=== PATIENT | male | born 1990 | race Caucasian/White ===

== ENCOUNTER 2017-04-12 13:50 | Outpatient (CLI) | payer MEDICARE, MEDICAID | END 2017-04-12 13:51 | disposition critical access hospital (66) | LOC: EMS 13:50 | PROVIDERS: ATTEND Surgery | DX: M79.644 Pain in right finger(s) (principal); M79.89 Other specified soft tissue disorders | CPT/HCPCS: A0425; A0429 ==

== ENCOUNTER 2017-04-12 14:05 | Emergency (ER) | payer MEDICARE, MEDICAID ==
[2017-04-12] MEDS ORDERED: BUPIVACAINE 0.5% PF 30 ML VIAL ONE (15:29)
[2017-04-12] MEDS ORDERED: PHENAZOPYRIDINE 100 MG TABLET PO STA (15:44)
[2017-04-12] MEDS ORDERED: CIPROFLOXACIN 250 MG TABLET PO STA (15:44)
--- NOTE | 2017-04-12 16:02 | ED Physician Documentation ---
History of Present Illness - Stated complaint Stated Complaint: SYNCOPE/R FINGER INFECTION - Chief complaint Chief Complaint: Neuro - History obtained from History obtained from: Patient - Additonal information Additional information: Patient is a 26-year-old male who is right-hand dominant. He presents with a complaint of right middle finger distal pain and swelling. Today the pain was severe and he saw blood and Pus emanating from the distal tip and subsequently fainted. He says this is not unusual for him and he sometimes will faint when he gets scared or nervous. He denies any chest pain or shortness of breath. There is no nausea, vomiting, constipation, diarrhea or lower urinary symptoms. He is otherwise a healthy man. Review of systems: For pertinent positive and negative questions for the review of systems please see history of present illness. Otherwise all other systems have been reviewed and are negative. Dragon disclaimer: Parts of this medical record were created using voice recognition technology. Because of the inherent limitations of this system occasional same sounding word substitutions do occur and persist despite proofreading. Please read the document for context. PD PAST MEDICAL HISTORY - Past Medical History Past Medical History: Yes Other Past Medical History: ruptured spleen - Past Surgical History Past Surgical History: No - Present Medications Home Medications: Ambulatory Orders Medication Instructions Recorded Confirmed Cephalexin [Keflex] 500 mg PO QID #20 capsule 04/12/17 Tramadol HCl 50 mg PO Q8HR PRN #10 tablet 04/12/17 - Allergies Allergies/Adverse Reactions: Allergies Allergy/AdvReac Type Severity Reaction Status Date / Time Penicillins Allergy Edema Verified 04/12/17 14:12 - Social History Does the pt smoke?: Yes Smoking Status: Current every day smoker Does the pt drink ETOH?: Yes Does the pt have substance abuse?: No - Immunizations Immunizations: TDAP >10years/unknown PD ED PE NORMAL - General General: Alert and oriented X 3, No acute distress - HEENT HEENT: Atraumatic, PERRL - Cardiac Cardiac: RRR, No murmur, No gallop, No rub - Respiratory Respiratory: No respiratory distress, Clear bilaterally - Abdomen Abdomen: Normal bowel sounds, Soft, Non tender, Non distended - Extremities Extremities: Other (On examination he has a obvious paronychia right distal tip middle finger) - Neuro Neuro: Alert and oriented X 3, No motor deficit, No sensory deficit - Psych Psych: Normal mood, Normal affect Results - Vitals Vitals: Vital Signs - 24 hr 04/12/17 14:09 Temperature 37.1 C Heart Rate 77 Respiratory 18 Rate Blood Pressure 128/77 O2 Saturation 100 Oxygen O2 Source Room air PD MEDICAL DECISION MAKING - ED course ED course: Patient is a healthy 26-year-old man with a paronychia on his dominant right distal Phalanx of the middle finger. He noticed blood and pus coming from it today became apprehensive and had a syncopal episode. On EKG has normal sinus rhythm with normal CO QRS and QT interval there is prominence of the ST segments consistent with early repolarization. There is no evidence of cardiac syncope clinically or electrically. A digital nerve block was performed using Marcaine in the usual fashion.Total of 8 cc was infused. Once there is good anesthesia the finger was cleansed with Betadine and using a stab incision of the distal phalanx the paronychia was incised and drained. There is interval improvement in the look of the finger. This wound was dressed and the patient will be placed on a very short course of Keflex that she probably does not need but is status post splenectomy salt air on the side of caution. Disposition: To home Clinical impression: 1. Vasovagal syncope 2. Paronychia right middle finger distal phalanx status post incision and drainage Departure - Departure Disposition: 01 Home, Self Care Clinical Impression: Vasovagal near-syncope Paronychia of finger Qualifiers: Laterality: right Qualified Code(s): L03.011 - Cellulitis of right finger Clinical Impression: (Ruled Out): Paronychia of fifth toe, right Condition: Good Instructions: Understanding Vasovagal Syncope, ED Fingernail Infec Follow-Up: your,physican [Other] Prescriptions: Tramadol HCl 50 mg PO Q8HR PRN #10 tablet PRN Reason: Pain Cephalexin [Keflex] 500 mg PO QID #20 capsule
[2017-04-12 16:25] VITALS: BP 134/74
== END 2017-04-12 16:38 | disposition home or self-care (01) ==
LOC: ED 14:05
DX: R55 Syncope and collapse (principal); L03.011 Cellulitis of right finger; F17.200 Nicotine dependence, unspecified, uncomplicated
CPT/HCPCS: 10160; 93005; 99283; 99284

== ENCOUNTER 2017-05-16 22:44 | Outpatient (CLI) | payer MEDICARE, MEDICAID | END 2017-05-16 22:45 | disposition EMS.NT | LOC: EMS 22:44 | PROVIDERS: ATTEND Surgery | DX: Z03.89 Encounter for observation for other suspected diseases and conditions ruled out (principal) ==

== ENCOUNTER 2017-05-31 12:24 | Outpatient (CLI) | payer MEDICARE, MEDICAID | END 2017-05-31 12:25 | disposition critical access hospital (66) | LOC: EMS 12:24 | PROVIDERS: ATTEND Surgery | DX: S06.9X1A Unspecified intracranial injury with loss of consciousness of 30 minutes or less, initial encounter (principal); V00.131A Fall from skateboard, initial encounter; Y93.I9 Activity, other involving external motion; Y92.838 Other recreation area as the place of occurrence of the external cause; Y99.8 Other external cause status | CPT/HCPCS: A0425; A0427 ==

== ENCOUNTER 2017-05-31 12:37 | Emergency (ER) | payer MEDICARE, MEDICAID ==
[2017-05-31] MEDS ORDERED: SODIUM CHLORIDE 0.9% 1,000 ML IV ONE (12:42)
[2017-05-31] MEDS ORDERED: TETANUS/DIPHTHERIA/PERTUSSIS 0.5 ML SYRINGE IM ONE ×2 (12:42→13:11)
--- NOTE | 2017-05-31 12:47 | ED Physician Documentation ---
PD HPI HEAD INJURY - Stated complaint Stated Complaint: FALL - History obtained from History obtained from: EMS - History of Present Illness Mechanism of head injury: Other (26-year-old gentleman, most of the history is from the paramedics because of altered mental status. He was at the [employer] park and evidently had been drinking and hit the back of his head quite hard with brief, 15 seconds or so on, loss of consciousness.) Review of Systems Unable to obtain: Confused PD PAST MEDICAL HISTORY - Past Surgical History Past Surgical History: No - Allergies Allergies/Adverse Reactions: Allergies Allergy/AdvReac Type Severity Reaction Status Date / Time Penicillins Allergy Edema Verified 04/12/17 14:12 - Social History Does the pt smoke?: Yes Smoking Status: Current every day smoker Does the pt drink ETOH?: Yes Does the pt have substance abuse?: No - Immunizations Immunizations: TDAP >10years/unknown PD ED PE NORMAL - Vitals Vital signs reviewed: Yes - General General: Other (Alert, slightly agitated, answers simple questions, knows the year but says it is Thursday and cannot name the month.) - HEENT HEENT: Other (Pupils are somewhat dilated and sluggishly reactive but equal. There is a probably 4 cm curvilinear laceration to the left occiput. He has a small laceration on the Inner lower lip on the left without obvious facial bony tenderness or deformity. He has good range of motion of the jaw.) - Neck Neck: No bony TTP, Other (In a c-collar which is maintained pending imaging given altered mental status.) - Cardiac Cardiac: RRR, No murmur - Respiratory Respiratory: No respiratory distress, Clear bilaterally - Abdomen Abdomen: Soft, Non tender - Back Back: No CVA TTP, No spinal TTP - Extremities Extremities: No deformity, No tenderness to palpate - Neuro Neuro: No motor deficit, No sensory deficit, Other (He is alert but altered, GCS is 14, he is confused.) Results - Vitals Vitals: Vital Signs - 24 hr 05/31/17 05/31/17 05/31/17 12:37 13:31 15:05 Temperature 36.3 C L Heart Rate 105 H 98 95 Respiratory 22 14 14 Rate Blood Pressure 125/90 H 126/79 112/68 O2 Saturation 99 97 98 05/31/17 05/31/17 16:10 16:46 Temperature Heart Rate 82 96 Respiratory 16 Rate Blood Pressure 102/59 L 116/75 O2 Saturation 97 97 Oxygen O2 Source Room air - Labs Labs: Laboratory Tests 05/31/17 05/31/17 05/31/17 12:44 12:44 12:44 WBC 12.9 H RBC 4.76 Hgb 13.6 L Hct 40.6 L MCV 85.3 MCH 28.6 MCHC 33.6 RDW 13.9 Plt Count 201 MPV 8.2 Neut # 7.8 H Lymph # 3.3 [place] # 1.5 H Eos # 0.2 Baso # 0.1 Absolute Nucleated RBC 0.00 Nucleated RBCs 0.0 PT 12.5 INR 1.1 Sodium 140 Potassium 3.8 Chloride 107 Carbon Dioxide 23 Anion Gap 10.0 BUN 15 Creatinine 0.8 Estimated GFR (MDRD) 116 Glucose 96 Calcium 8.9 Total Bilirubin 0.8 AST 28 ALT 24 Alkaline Phosphatase 60 Total Protein 7.5 Albumin 4.9 Globulin 2.6 Albumin/Globulin Ratio 1.9 Lipase 15 L Ethyl Alcohol 267.1 - Rads (name of study) CT Head, face, cspine, Chest, Abd/Pel Radiology: EMP read contemporaneously (No traumatic findings with the exception of soft tissue swelling of the scalp, he does have acute on chronic sinus disease and hepatic and renal cysts) Procedures - Laceration (location) Left occiput Length in cm: 2 Wound type: Linear, Other (It was smaller than I thought it was on initial evaluation and easier to identify the length once the c-collar was discontinued. ) Anesthesia: Lidocaine 1%, With bicarb Wound Preparation: Irrigated copiously NS Skin layer closure: [place] (5) Other: Tetanus booster given Complexity: Simple PD MEDICAL DECISION MAKING - ED course ED course: 26-year-old gentleman presents intoxicated with a head injury. Given his intoxicated status a CT hair scan was done and was without traumatic findings. The scalp laceration was closed with giselle. He was observed for several hours and allowed to sober up, by the time of discharge he was clinically sober , able to ambulate and ate and drank without issue. Departure - Departure Disposition: 01 Home, Self Care Clinical Impression: Concussion Qualifiers: Encounter type: initial encounter Injury of head and neck Qualifiers: Encounter type: initial encounter Qualified Code(s): S09.90XA - Unspecified injury of head, initial encounter; S19.9XXA - Unspecified injury of neck, initial encounter Scalp laceration Qualifiers: Encounter type: initial encounter Qualified Code(s): S01.01XA - Laceration without foreign body of scalp, initial encounter Alcohol intoxication Qualifiers: Complication of substance-induced condition: uncomplicated Qualified Code(s): F10.120 - Alcohol abuse with intoxication, uncomplicated Condition: Good Record reviewed to determine appropriate education?: Yes Instructions: ED Head Injury Closed Sleep Mon, ED Alcohol Intoxication Comments: Come back for any signs of infection which would include: Redness, swelling, drainage, increased pain, or fevers. Follow-up with your physician in 10 days for staple removal removal.
[2017-05-31 12:55] LABS: BASOPHILS # (AUTO) 0.1 10^3/uL (0.0-0.1); BASOPHILS % (AUTO) 0.9 %; EOSINOPHILS # (AUTO) 0.2 10^3/uL (0.0-0.7); EOSINOPHILS % (AUTO) 1.2 %; HCT - HEMATOCRIT 40.6 % (42.0-52.0); HGB - HEMOGLOBIN 13.6 g/dL (14.0-18.0); LYMPHOCYTES # (AUTO) 3.3 10^3/uL (1.5-3.5); LYMPHOCYTES % (AUTO) 25.4 %; MEAN CORPUSCULAR HEMOGLOBIN 28.6 pg (27.0-31.0); MEAN CORPUSCULAR HGB CONC 33.6 g/dL (32.0-36.0); MEAN CORPUSCULAR VOLUME 85.3 fL (80.0-94.0); MEAN PLATELET VOLUME 8.2 fL (7.4-11.4); MONOCYTES # (AUTO) 1.5 10^3/uL (0.0-1.0); NEUTROPHILS # (AUTO) 7.8 10^3/uL (1.5-6.6); NEUTROPHILS % (AUTO) 60.5 %; RED BLOOD COUNT 4.76 10^6/uL (4.70-6.10); RED CELL DISTRIBUTION WIDTH 13.9 % (12.0-15.0); UNCORRECTED WHITE BLOOD COUNT 12.9 x10^3/uL; WHITE BLOOD COUNT 12.9 x10^3/uL (4.8-10.8)
[2017-05-31 13:01] LABS: INR 1.1 (0.8-1.2); PT - PROTHROMBIN TIME 12.5 secs (9.9-12.6)
[2017-05-31 13:06] LABS: ALBUMIN/GLOBULIN RATIO 1.9 (1.0-2.2); BILIRUBIN,TOTAL 0.8 mg/dL (0.2-1.0); CALCIUM 8.9 mg/dL (8.5-10.3); CREATININE 0.8 mg/dL (0.6-1.2); POTASSIUM 3.8 mmol/L (3.5-5.0); TOTAL PROTEIN 7.5 g/dL (6.7-8.2)
--- NOTE | 2017-05-31 13:21 | CT Preliminary Report ---
Exam: CT Cervical Spine W/O IMPRESSION: Normal cervical spine CT. [facility] SITE ID: [id number]
[2017-05-31] MEDS ORDERED: IOPAMIDOL-300 100 ML VIAL IVP ONE (13:22)
--- NOTE | 2017-05-31 13:22 | CT Preliminary Report ---
Exam: CT Head W/O IMPRESSION: No evidence of intracranial hemorrhage. [facility] SITE ID: [id number]
--- NOTE | 2017-05-31 13:24 | CT Report ---
EXAM: CT HEAD EXAM DATE: 05/31/2017 01:08 PM. CLINICAL HISTORY: Trauma, head inj. COMPARISON: None. TECHNIQUE: Multiaxial CT images were obtained from the foramen magnum to the vertex. IV contrast: Non e. Reformats: Coronal. In accordance with CT protocol optimization, one or more of the following dose reduction techniques w ere utilized for this exam: automated exposure control, adjustment of mA and/or KV based on patient s ize, or use of iterative reconstructive technique. FINDINGS: Parenchyma: No intraparenchymal hemorrhage. No evidence of mass, midline shift, or CT findings of inf arction. Black-white differentiation is distinct. Extraaxial Spaces: Normal for age. No subdural or epidural collections identified. Ventricles: Normal in size and position. Sinuses: Right maxillary sinus disease. Please also refer to facial bone CT. Bones: No calvarial fracture. Please also refer to facial bone CT. Other: Left parietal scalp contusion. IMPRESSION: No evidence of intracranial hemorrhage. [facility] Referring Provider Line: [phone] SITE ID: [id number]
--- NOTE | 2017-05-31 13:24 | CT Report ---
EXAM: CT CERVICAL SPINE WITHOUT CONTRAST DATE: 05/31/2017 01:11 PM HISTORY: Trauma, head injury. COMPARISONS: None. TECHNIQUE: Thin-section axial images were acquired of the cervical spine without contrast. Post-proce ssing: Coronal and sagittal reformats. Other: None. In accordance with CT protocol optimization, one or more of the following dose reduction techniques w ere utilized for this exam: automated exposure control, adjustment of mA and/or KV based on patient s ize, or use of iterative reconstructive technique. FINDINGS: Alignment: Normal. No scoliosis or spondylolisthesis. Bones: No fracture or bone lesion. Interspace Levels/Facets: C1-C2: Unremarkable. C2-C3: Unremarkable. C3-C4: Unremarkable. C4-C5: Unremarkable. C5-C6: Unremarkable. C6-C7: Unremarkable. C7-T1: Unremarkable. Other: The paravertebral and prevertebral soft tissues are normal. The lung apices are clear. IMPRESSION: Normal cervical spine CT. [facility] Referring Provider Line: [phone] SITE ID: [id number]
--- NOTE | 2017-05-31 13:24 | CT Preliminary Report ---
Exam: CT Facial Bones W/O IMPRESSION: No evidence of fracture. Acute on chronic sinus disease. [facility] SITE ID: [id number]
--- NOTE | 2017-05-31 13:27 | CT Report ---
EXAM: CT MAXILLOFACIAL WITHOUT CONTRAST EXAM DATE: 05/31/2017 01:10 PM. CLINICAL HISTORY: Facial injuries. COMPARISONS: None. TECHNIQUE: Thin-section axial images were acquired of the face without contrast. Post-processing: Cor onal and sagittal reformats. Other: None. In accordance with CT protocol optimization, one or more of the following dose reduction techniques w ere utilized for this exam: automated exposure control, adjustment of mA and/or KV based on patient s ize, or use of iterative reconstructive technique. FINDINGS: Bones: No fracture or bone lesion. Temporomandibular Joints: The temporomandibular joints are symmetric and normally located. Sinuses: There is a small air-fluid level in the right maxillary sinus, as well as bilateral maxillar y mucosal thickening, ethmoid air cell opacification. The septum is midline. Other: None. IMPRESSION: No evidence of fracture. Acute on chronic sinus disease. [facility] Referring Provider Line: [phone] SITE ID: [id number]
--- NOTE | 2017-05-31 13:35 | CT Preliminary Report ---
Exam: CT Chest W/ IMPRESSION: Incidental hepatic and renal cysts. No evidence of solid or hollow organ injury. [facility] SITE ID: [id number]
[2017-05-31] MEDS ORDERED: ONDANSETRON 4 MG/2 ML VIAL IVP STA (13:36)
[2017-05-31] MEDS ORDERED: BUFFERED LIDOCAINE 10 ML SYRINGE ONE (13:37)
--- NOTE | 2017-05-31 13:38 | CT Report ---
EXAM: CT CHEST, ABDOMEN AND PELVIS EXAM DATE: 05/31/2017 01:23 PM. CLINICAL HISTORY: Trauma, head inj. COMPARISONS: None. TECHNIQUE: Routine helical CT imaging was performed through the chest, abdomen, and pelvis. IV contra st: 100 mL Isovue 300. Enteric contrast: No. Reconstructions: Coronal and sagittal. In accordance with CT protocol optimization, one or more of the following dose reduction techniques w ere utilized for this exam: automated exposure control, adjustment of mA and/or KV based on patient s ize, or use of iterative reconstructive technique. FINDINGS: Lungs/Pleura: Normal. No nodules, bronchial thickening, consolidation, or edema. Pulmonary vasculatur e is normal. No effusions or pneumothorax. Mediastinum: Normal. No adenopathy or masses. Liver: Small cyst anteriorly. No laceration. Gallbladder/Bile Ducts: Unremarkable. Spleen: Normal. Pancreas: Normal. Adrenal Glands: Normal. Kidneys: Small cyst in the upper pole of the right kidney. Normal left kidney. Peritoneal Cavity/Bowel: Normal. No free fluid, free air or adenopathy. No masses or acute inflammato ry process. The appendix is well visualized and normal. Pelvic Organs: Normal. The bladder and visualized pelvic organs are within normal limits. Vasculature: No aneurysms or other significant abnormality. Bones: No significant abnormality. Other: None. IMPRESSION: Incidental hepatic and renal cysts. No evidence of solid or hollow organ injury. [facility] Referring Provider Line: [phone] SITE ID: [id number]
[2017-05-31] MEDS ORDERED: SODIUM CHLORIDE FLUSH 0.9% 10 ML SYRINGE IVP ONE (14:03)
[2017-05-31] MEDS ORDERED: ONDANSETRON 4 MG/2 ML VIAL ONE (14:03)
[2017-05-31 16:52] VITALS: BP 116/75
[2017-05-31] MEDS ORDERED: IBUPROFEN 600 MG TABLET PO STA (17:32)
[2017-05-31] MEDS ORDERED: IBUPROFEN 600 MG TABLET PO ONE (17:35)
== END 2017-05-31 17:19 | disposition home or self-care (01) ==
LOC: EDUNIT# → EDBD → ED 12:37
DX: S06.0X1A Concussion with loss of consciousness of 30 minutes or less, initial encounter (principal); W19.XXXA Unspecified fall, initial encounter; Y92.830 Public park as the place of occurrence of the external cause; S01.01XA Laceration without foreign body of scalp, initial encounter; Z23 Encounter for immunization; F10.129 Alcohol abuse with intoxication, unspecified; F17.200 Nicotine dependence, unspecified, uncomplicated
CPT/HCPCS: 12001; 36415; 70450; 70486; 71260; 72125; 74177; 80053; 83690; 85025; 85610; 90471; 90715; 96361; 96374; 99284; 99285; A9270; G0480; Q9967; 80320

== ENCOUNTER 2017-06-02 08:01 | Emergency (ER) | payer MEDICARE, MEDICAID ==
[2017-06-02 08:19] VITALS: BP 124/87
--- NOTE | 2017-06-02 08:41 | ED Physician Documentation ---
PD HPI HEAD INJURY - Stated complaint Stated Complaint: FACE/HEAD PX - Chief complaint Chief Complaint: Heent - History obtained from History obtained from: Patient - History of Present Illness Mechanism of head injury: Other (see prior ED note) Timing - onset: How many days ago (2 days ago had injuries, and seen in ED, with CTs and evaluation. Since then has had increased swelling of lower lip with pain. Also continued pains in anterior chest.) Similar symptoms before: Other (no fractures nor organ injury on CTs.) Recently seen: Emergency Dept (few days ago) Review of Systems Constitutional: denies: Fever, Chills Nose: denies: Rhinorrhea / runny nose, Congestion Throat: denies: Sore throat Cardiac: reports: Chest pain / pressure. denies: Palpitations, Pedal edema, Calf pain Respiratory: denies: Dyspnea, Cough, Wheezing GI: denies: Abdominal Pain, Nausea, Vomiting Neurologic: reports: Headache. denies: Generalized weakness, Focal weakness, Numbness PD PAST MEDICAL HISTORY - Past Medical History Past Medical History: Yes Other Past Medical History: ruptured spleen - Past Surgical History Past Surgical History: No - Present Medications Home Medications: Ambulatory Orders Medication Instructions Recorded Confirmed Clindamycin HCl [Cleocin HCl] 300 mg PO TID #20 capsule 06/02/17 HYDROcod/ACETAM 5/325 [[place] 5/325] 1 tab PO Q6H PRN #12 tablet 06/02/17 Naproxen [Naprosyn] 500 mg PO BID #20 tablet 06/02/17 - Allergies Allergies/Adverse Reactions: Allergies Allergy/AdvReac Type Severity Reaction Status Date / Time Penicillins Allergy Edema Verified 06/02/17 08:16 - Social History Does the pt smoke?: Yes Smoking Status: Current some day smoker Does the pt drink ETOH?: Yes Does the pt have substance abuse?: No - Immunizations Immunizations are current?: Yes Immunizations: TDAP >10years/unknown PD ED PE NORMAL - Vitals Vital signs reviewed: Yes - General General: Alert and oriented X 3, No acute distress, Well developed/nourished - HEENT HEENT: Other (left lower lip with swelling and tenderness, some firmness but no fluctuance. Inner lip with abrasions/lacs with redness and yellow exudate superficially. Teeth not loose. ) - Neck Neck: Supple, no meningeal sign, No bony TTP, No adenopathy - Cardiac Cardiac: RRR, No murmur, Other (some chest wall tenderness sternal area without deformity. ) - Respiratory Respiratory: Clear bilaterally - Abdomen Abdomen: Soft, Non tender - Derm Derm: Normal color, Warm and dry - Neuro Neuro: Alert and oriented X 3, No motor deficit, Normal speech Results - Vitals Vitals: Oxygen O2 Source Room air PD MEDICAL DECISION MAKING - ED course Complexity details: reviewed old records, considered differential (prior CT reports noted. He has significant swelling around lower right lip with inner lip abrasions/lacs showing redness and some yellow coating. No abscess feeling. Will give abx and some pain meds. ), d/w patient Departure - Departure Disposition: 01 Home, Self Care Clinical Impression: Concussion Qualifiers: Encounter type: subsequent encounter Loss of consciousness presence/duration: with LOC of unspecified duration Qualified Code(s): S06.0X9D - Concussion with loss of consciousness of unspecified duration, subsequent encounter Infected lip laceration Qualifiers: Encounter type: initial encounter Qualified Code(s): S01.511A - Laceration without foreign body of lip, initial encounter Chest wall contusion Qualifiers: Encounter type: subsequent encounter Laterality: unspecified laterality Qualified Code(s): S20.219D - Contusion of unspecified front wall of thorax, subsequent encounter Condition: Stable Record reviewed to determine appropriate education?: Yes Instructions: ED Contusion Chest Wall Prescriptions: Clindamycin HCl [Cleocin HCl] 300 mg PO TID #20 capsule Naproxen [Naprosyn] 500 mg PO BID #20 tablet HYDROcod/ACETAM 5/325 [[place] 5/325] 1 tab PO Q6H PRN #12 tablet PRN Reason: Pain Comments: Drink lots of fluids. Rinse the inside of the lip and gums with antiseptic or cleansing mouth rinse such as Listerine. Clindamycin 3 times a day for a week as directed which is an antibiotic for the apparent lip infection. Naproxen twice daily for 7-10 days for pains generally. Add Tylenol or hydrocodone if needed for pain. Drink lots of fluids. Recheck if still not better over the next 3-5 days. Discharge Date/Time: 06/02/17 09:07
[2017-06-02] MEDS ORDERED: CLINDAMYCIN 150 MG CAPSULE PO STA (08:54)
[2017-06-02] MEDS ORDERED: IBUPROFEN 600 MG TABLET PO STA (08:54)
[2017-06-02] MEDS ORDERED: IBUPROFEN 600 MG TABLET PO ONE (09:03)
[2017-06-02] MEDS ORDERED: CLINDAMYCIN 150 MG CAPSULE PO ONE (09:04)
== END 2017-06-02 09:07 | disposition home or self-care (01) ==
LOC: ED 08:01
DX: S01.511A Laceration without foreign body of lip, initial encounter (principal); S06.0X9D Concussion with loss of consciousness of unspecified duration, subsequent encounter; S20.219D Contusion of unspecified front wall of thorax, subsequent encounter; F17.200 Nicotine dependence, unspecified, uncomplicated; X58.XXXD Exposure to other specified factors, subsequent encounter
CPT/HCPCS: 99283; A9270

== ENCOUNTER 2017-06-12 10:31 | Emergency (ER) | payer MEDICARE, MEDICAID ==
[2017-06-12 10:43] VITALS: BP 121/60
--- NOTE | 2017-06-12 11:22 | ED Physician Documentation ---
PD HPI WOUND RECHECK - Stated complaint Stated Complaint: STAPLE REMOVAL - Chief complaint Chief Complaint: Wound - Histroy obtained from History obtained from: Patient - History of Present Illness Location: Scalp Recently seen: Emergency Dept - Additional information Additional information: The patient is a 26-year-old male who presents for removal of giselle from a scalp wound that was repaired in the emergency department here 10 days ago. He denies any complications from the wound. Review of Systems Constitutional: denies: Fever Neurologic: denies: Headache PD PAST MEDICAL HISTORY - Past Surgical History Past Surgical History: No - Present Medications Home Medications: Ambulatory Orders Medication Instructions Recorded Confirmed No Known Home Medications [No 06/12/17 06/12/17 Known Home Medications] - Allergies Allergies/Adverse Reactions: Allergies Allergy/AdvReac Type Severity Reaction Status Date / Time Penicillins Allergy Edema Verified 06/02/17 08:16 - Social History Does the pt smoke?: Yes Smoking Status: Current some day smoker Does the pt drink ETOH?: Yes Does the pt have substance abuse?: No - Immunizations Immunizations are current?: Yes Immunizations: TDAP >10years/unknown PD ED PE NORMAL - Vitals Vital signs reviewed: Yes (normal) - General General: Alert and oriented X 3, No acute distress, Well developed/nourished - HEENT HEENT: Other (Occipital scalp wound is intact with giselle. There is no surrounding erythema or tenderness to palpation. The wound appears to be healing well.) - Neck Neck: Other - Respiratory Respiratory: No respiratory distress - Derm Derm: No rash - Neuro Neuro: Alert and oriented X 3, No motor deficit, Normal speech Results - Vitals Vitals: Oxygen O2 Source Room air Procedures - Suture/staple Removal (location) Scalp Suture/staple removal: # giselle (5), No complications PD MEDICAL DECISION MAKING - ED course Complexity details: d/w patient ED course: The patient's occipital scalp wound appears to be healing well, 10 days status post stapling. The giselle were removed without complication. I discussed with him potentially worrisome signs or symptoms that should prompt reevaluation. Departure - Departure Disposition: 01 Home, Self Care Clinical Impression: Removal of giselle Condition: Stable Instructions: ED Stap Removal No Complication Comments: It is okay to shampoo your care. Follow-up with your primary physician, or return to the emergency department, if you develop any sign of infection, or otherwise worsening symptoms. Discharge Date/Time: 06/12/17 11:25
== END 2017-06-12 11:25 | disposition home or self-care (01) ==
LOC: ED 10:31
DX: S01.01XD Laceration without foreign body of scalp, subsequent encounter (principal); X58.XXXD Exposure to other specified factors, subsequent encounter; F17.200 Nicotine dependence, unspecified, uncomplicated; Z48.02 Encounter for removal of sutures
CPT/HCPCS: 99283

== ENCOUNTER 2017-06-20 14:45 | Outpatient (CLI) | payer MEDICARE, MEDICAID | END 2017-06-20 14:46 | disposition critical access hospital (66) | LOC: EMS 14:45 | PROVIDERS: ATTEND Surgery | DX: R68.84 Jaw pain (principal); W18.30XA Fall on same level, unspecified, initial encounter; Y92.830 Public park as the place of occurrence of the external cause | CPT/HCPCS: A0425; A0429 ==

== ENCOUNTER 2017-06-20 15:03 | Emergency (ER) | payer MEDICARE, MEDICAID ==
[2017-06-20 15:10] VITALS: BP 153/79
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
[2017-06-20] MEDS ORDERED: ACETAMINOPHEN 325 MG TABLET PO STA (16:00)
[2017-06-20] MEDS ORDERED: ACETAMINOPHEN 325 MG TABLET PO ONE (16:12)
== END 2017-06-20 17:58 | disposition home or self-care (01) ==
LOC: EDUNIT# → ED 15:03
DX: S01.511A Laceration without foreign body of lip, initial encounter (principal); S20.211A Contusion of right front wall of thorax, initial encounter; Y92.480 Sidewalk as the place of occurrence of the external cause; W19.XXXA Unspecified fall, initial encounter; F10.920 Alcohol use, unspecified with intoxication, uncomplicated; F17.200 Nicotine dependence, unspecified, uncomplicated; Z59.0 Homelessness
CPT/HCPCS: 99283; 99284; A9270

== ENCOUNTER 2017-08-19 10:06 | Emergency (ER) | payer MEDICARE, MEDICAID ==
[2017-08-19 10:24] VITALS: BP 118/76
--- NOTE | 2017-08-19 10:55 | XRAY Preliminary Report ---
Exam: XR KNEE 3 VIEW LT IMPRESSION: Normal knee radiography. [facility] SITE ID: [id number]
--- NOTE | 2017-08-19 10:57 | XRAY Report ---
EXAM: LEFT KNEE RADIOGRAPHY EXAM DATE: 08/19/2017 10:47 AM. CLINICAL HISTORY: Hyperextended knee last night. Pain. COMPARISON: None. TECHNIQUE: 3 views. FINDINGS: Bones: Normal. No fractures or bone lesions. Joints: Normal. No effusion. No subluxations. Soft Tissues: Normal. No soft tissue swelling. IMPRESSION: Normal knee radiography. [facility] Referring Provider Line: [phone] SITE ID: [id number]
--- NOTE | 2017-08-19 11:53 | ED Physician Documentation ---
PD HPI LOWER EXT INJURY - Stated complaint Stated Complaint: L KNEE INJ - Chief complaint Chief Complaint: Ext Problem - History obtained from History obtained from: Patient - History of Present Illness PD HPI LOW EXT INJURY LOCATION: Left, Knee Type of injury: Twist Where injury occurred: Home Timing - onset: Last night Timing - duration: Hours Timing - details: Abrupt onset, Still present Improved by: Rest, Immobilization Worsened by: Moving, Palpating Associated symptoms: No: Weakness, Numbness, Tingling, Swelling Contributing factors: No: Anticoagulated Similar symptoms before: Has not had sx before Recently seen: Not recently seen - Additional information Additional information: 26-year-old male reports that last night he was walking along in a straight line and suddenly his knee hyperextended. He reports pain in the knee and denies any feeling of instability. He does not have swelling. He is able to walk. Review of Systems Constitutional: denies: Fever Throat: denies: Sore throat Respiratory: denies: Cough GI: denies: Vomiting : denies: Dysuria Skin: denies: Rash Musculoskeletal: reports: Joint pain, Pain with weight bearing. denies: Neck pain, Back pain, Joint swelling Neurologic: denies: Generalized weakness, Focal weakness, Numbness PD PAST MEDICAL HISTORY - Past Medical History Past Medical History: No Cardiovascular: None Respiratory: None Neuro: None Endocrine/Autoimmune: None - Past Surgical History Past Surgical History: No - Present Medications Home Medications: Ambulatory Orders Medication Instructions Recorded Confirmed No Known Home Medications [No 06/12/17 08/19/17 Known Home Medications] - Allergies Allergies/Adverse Reactions: Allergies Allergy/AdvReac Type Severity Reaction Status Date / Time Penicillins Allergy Edema Verified 06/02/17 08:16 cillins Allergy Edema Uncoded 08/19/17 10:25 - Social History Does the pt smoke?: Yes Smoking Status: Current every day smoker Does the pt drink ETOH?: Yes Does the pt have substance abuse?: No - Immunizations Immunizations are current?: Yes Immunizations: TDAP >10years/unknown PD ED PE NORMAL - Vitals Vital signs reviewed: Yes (normal ) - General General: No acute distress, Well developed/nourished - HEENT HEENT: Atraumatic, PERRL - Respiratory Respiratory: No respiratory distress - Derm Derm: Normal color, Warm and dry, No rash - Extremities Extremities: No deformity, No edema, Other (There is no swelling or joint space tenderness to either knee. The anterior drawer is positive on the left knee and negative on the right knee. The medial ligaments are stable and there does not appear to be much in the way of an effusion ) - Neuro Neuro: No motor deficit, No sensory deficit Eye Opening: Spontaneous Motor: Obeys Commands Verbal: Oriented GCS Score: 15 - Psych Psych: Normal mood, Normal affect Results - Vitals Vitals: Vital Signs - 24 hr 08/19/17 10:15 Temperature 36.4 C L Heart Rate 90 Respiratory 16 Rate Blood Pressure 118/76 O2 Saturation 97 Oxygen O2 Source Room air - Rads (name of study) knee Radiology: Prelim report reviewed (Impression: Normal knee radiography.), EMP read indepedently, See rad report Procedures - Splint (location) knee Splint applied by: Tech Type of splint: Other (knee immobilizer) Other: Patient tolerated well, No complications, Neurovascular intact, Good alignment PD MEDICAL DECISION MAKING - ED course Complexity details: considered differential, d/w patient ED course: 26-year-old male with a history of hyperextension of the left knee appears to have disruption of the anterior or posterior cruciate ligament and the medial and lateral collateral ligaments appear intact. He is placed into a knee immobilizer and will have follow-up with orthopedics. Departure - Departure Disposition: 01 Home, Self Care Clinical Impression: Sprain, knee, anterior cruciate ligament Qualifiers: Encounter type: initial encounter Laterality: left Qualified Code(s): S83.512A - Sprain of anterior cruciate ligament of left knee, initial encounter Condition: Stable Instructions: ED Sprain Knee Follow-Up: [facility] [Provider Group]
== END 2017-08-19 12:26 | disposition home or self-care (01) ==
LOC: ED 10:06
DX: S83.512A Sprain of anterior cruciate ligament of left knee, initial encounter (principal); X58.XXXA Exposure to other specified factors, initial encounter; Y93.01 Activity, walking, marching and hiking; Y92.009 Unspecified place in unspecified non-institutional (private) residence as the place of occurrence of the external cause; F17.200 Nicotine dependence, unspecified, uncomplicated
CPT/HCPCS: 29530; 99283

== ENCOUNTER 2017-11-11 18:52 | Outpatient (CLI) | payer MEDICARE | END 2017-11-11 18:53 | disposition critical access hospital (66) | LOC: EMS 18:52 | PROVIDERS: ATTEND Surgery | DX: S09.90XA Unspecified injury of head, initial encounter (principal); Y04.2XXA Assault by strike against or bumped into by another person, initial encounter | CPT/HCPCS: A0425; A0429 ==

== ENCOUNTER 2017-11-11 19:11 | Emergency (ER) | payer MEDICAID, MEDICARE ==
[2017-11-11] MEDS ORDERED: ONDANSETRON 4 MG/2 ML VIAL IVP STA (19:38)
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
[2017-11-11 19:55] LABS: BASOPHILS # (AUTO) 0.1 10^3/uL (0.0-0.1); BASOPHILS % (AUTO) 1.1 %; EOSINOPHILS % (AUTO) 0.3 %; HGB - HEMOGLOBIN 14.9 g/dL (14.0-18.0); LYMPHOCYTES # (AUTO) 2.5 10^3/uL (1.5-3.5); LYMPHOCYTES % (AUTO) 22.9 %; MEAN CORPUSCULAR HEMOGLOBIN 28.7 pg (27.0-31.0); MEAN CORPUSCULAR VOLUME 84.4 fL (80.0-94.0); MEAN PLATELET VOLUME 8.6 fL (7.4-11.4); MONOCYTES # (AUTO) 0.8 10^3/uL (0.0-1.0); MONOCYTES % (AUTO) 7.6 %; NEUTROPHILS # (AUTO) 7.5 10^3/uL (1.5-6.6); NEUTROPHILS % (AUTO) 68.1 %; PLT - PLATELET COUNT 234 10^3/uL (130-450); RED BLOOD COUNT 5.19 10^6/uL (4.70-6.10); RED CELL DISTRIBUTION WIDTH 13.9 % (12.0-15.0)
[2017-11-11] MEDS ORDERED: LORazepam 2 MG/ML VIAL IVP STA (20:00)
[2017-11-11 20:05] LABS: INR 1.2 (0.8-1.2)
[2017-11-11 20:09] LABS: ALBUMIN 5.1 g/dL (3.2-5.5); ALBUMIN/GLOBULIN RATIO 1.5 (1.0-2.2); BILIRUBIN,TOTAL 0.2 mg/dL (0.2-1.0); CALCIUM 9.4 mg/dL (8.5-10.3); CREATININE 0.8 mg/dL (0.6-1.2); TOTAL PROTEIN 8.5 g/dL (6.7-8.2)
[2017-11-11] MEDS ORDERED: LORazepam 2 MG/ML VIAL ONE (20:09)
[2017-11-11] MEDS ORDERED: HALOPERIDOL 5 MG/ML VIAL IVP ONE (20:29)
[2017-11-11] MEDS ORDERED: HALOPERIDOL 5 MG/ML VIAL ONE (20:37)
--- NOTE | 2017-11-11 20:37 | CT Preliminary Report ---
Exam: CT HEAD W/O IMPRESSION: 1. No acute intracranial abnormality. 2. Right supraorbital soft tissue swelling. [facility] SITE ID: [id number]
--- NOTE | 2017-11-11 20:41 | CT Preliminary Report ---
Exam: CT CERVICAL SPINE W/O IMPRESSION: Normal cervical spine CT. [facility] SITE ID: [id number]
--- NOTE | 2017-11-11 21:03 | CT Report ---
EXAM: CT CERVICAL SPINE WITHOUT CONTRAST DATE: 11/11/2017 08:18 PM. HISTORY: Head injury, ETOH. COMPARISONS: 05/31/2017. TECHNIQUE: Thin-section axial images were acquired of the cervical spine without contrast. Post-proce ssing: Coronal and sagittal reformats. Other: None. In accordance with CT protocol optimization, one or more of the following dose reduction techniques w ere utilized for this exam: automated exposure control, adjustment of mA and/or KV based on patient s ize, or use of iterative reconstructive technique. FINDINGS: Alignment: No scoliosis or spondylolisthesis. Bones: No fracture or bone lesion. Interspace Levels/Facets: C1-C2: Unremarkable. C2-C3: Unremarkable. C3-C4: Unremarkable. C4-C5: Unremarkable. C5-C6: Unremarkable. C6-C7: Unremarkable. C7-T1: Unremarkable. Musculature: Normal. No fatty atrophy. Other: The paravertebral and prevertebral soft tissues are unremarkable. The lung apices are clear. IMPRESSION: Normal cervical spine CT. [facility] Referring Provider Line: [phone] SITE ID: [id number]
--- NOTE | 2017-11-11 21:03 | CT Report ---
EXAM: CT HEAD EXAM DATE: 11/11/2017 08:18 PM. CLINICAL HISTORY: Head injury, ETOH. COMPARISON: 05/31/2017. TECHNIQUE: Multiaxial CT images were obtained from the foramen magnum to the vertex. Reformats: Coron al. IV contrast: None. In accordance with CT protocol optimization, one or more of the following dose reduction techniques w ere utilized for this exam: automated exposure control, adjustment of mA and/or KV based on patient s ize, or use of iterative reconstructive technique. FINDINGS: Parenchyma: No intraparenchymal hemorrhage. No evidence of mass, midline shift, or CT findings of inf arction. Black-white differentiation is distinct. Extraaxial Spaces: Normal for age. No subdural or epidural collections identified. Ventricles: Normal in size and position. Sinuses and Orbits: Imaged paranasal sinuses, orbits, and mastoids show no significant abnormality. Bones: No evidence of fracture or calvarial defect. Other: Small right supraorbital contusion/hematoma. IMPRESSION: 1. No acute intracranial abnormality. 2. Right supraorbital soft tissue swelling. [facility] Referring Provider Line: [phone] SITE ID: [id number]
[2017-11-12 05:20] VITALS: BP 110/74
--- NOTE | 2017-11-12 05:27 | ED Physician Documentation ---
ED Addendum - Addendum Addendum: 11/12/17 05:26 Patient was signed over to me from dr. alvarez. Patient was observed overnight without any issues. IN the morning patient was awake, alert and oriented. patient was able to attend to conversation and ambulate without difficulty. Patient required no further work up and was stable for discharge with outpatient follow up.
== END 2017-11-12 05:50 | disposition home or self-care (01) ==
LOC: EDUNIT# → ED 19:11
DX: F10.920 Alcohol use, unspecified with intoxication, uncomplicated (principal); S09.90XA Unspecified injury of head, initial encounter; S00.81XA Abrasion of other part of head, initial encounter; Y09 Assault by unspecified means
CPT/HCPCS: 36415; 70450; 72125; 80053; 83690; 85025; 85610; 96374; 96375; 99284; G0480; J2060; 80320

== ENCOUNTER 2018-07-08 07:59 | Emergency (ER) | payer MEDICARE ==
[2018-07-08 08:10] VITALS: BP 137/96
[2018-07-08] MEDS ORDERED: CLINDAMYCIN 150 MG CAPSULE PO STA (08:25)
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
== END 2018-07-08 08:42 | disposition home or self-care (01) ==
LOC: ED 07:59
DX: K04.7 Periapical abscess without sinus (principal); F17.200 Nicotine dependence, unspecified, uncomplicated
CPT/HCPCS: 99283; A9270

== ENCOUNTER 2018-08-02 23:49 | Outpatient (CLI) | payer MEDICARE | END 2018-08-02 23:50 | disposition critical access hospital (66) | LOC: EMS 23:49 | PROVIDERS: ATTEND Surgery | DX: R11.2 Nausea with vomiting, unspecified (principal); R19.7 Diarrhea, unspecified | CPT/HCPCS: A0425; A0429 ==

== ENCOUNTER 2018-08-03 00:06 | Emergency (ER) | payer MEDICARE ==
[2018-08-03] MEDS ORDERED: SODIUM CHLORIDE 0.9% 1,000 ML IV ONE (00:17)
--- NOTE | 2018-08-03 00:21 | ED Physician Documentation ---
PD HPI NVD - Stated complaint Stated Complaint: N/V/D - Chief complaint Chief Complaint: Abd Pain - History obtained from History obtained from: Patient - History of Present Illness Timing - onset: Enter time (1999), Today Timing - duration: Hours Timing - details: Abrupt onset, Now resolved Associated symptoms: Abdominal pain Contributing factors: Sick contact (interaction with an 8 year old that he played a board game with) Improved by: Vomiting Similar symptoms before: No diagnosis Recently seen: Emergency Dept (for dental pain) - Additonal information Additional information: 27-year-old male was at the homeless [facility] when he developed acute nausea vomiting and diarrhea. He states that this came on out of nowhere was coming out of both ends abruptly and is now completely resolved. He thinks this lasted almost 3 hours. He states this is happened to him one time previously when he had some interaction with a Dave. He indicates that today he was at [facility] with and was playing a board game with an 8-year-old child and he is wondering if this is where he contacted something. Review of Systems Constitutional: denies: Fever, Chills, Myalgias Eyes: denies: Decreased vision Ears: denies: Ear pain Nose: denies: Congestion Throat: denies: Sore throat Cardiac: denies: Chest pain / pressure, Palpitations Respiratory: denies: Dyspnea, Cough GI: reports: Abdominal Pain, Nausea, Vomiting, Diarrhea : denies: Dysuria, Frequency Skin: denies: Rash Musculoskeletal: denies: Neck pain, Back pain, Extremity pain Neurologic: denies: Generalized weakness, Focal weakness, Numbness PD PAST MEDICAL HISTORY - Past Medical History Cardiovascular: None Respiratory: None Endocrine/Autoimmune: None - Past Surgical History Past Surgical History: No - Present Medications Home Medications: Ambulatory Orders Medication Instructions Recorded Confirmed Clindamycin HCl [Clindamycin 300MG 300 mg PO QID #40 capsule 07/08/18 CAP] RX: HYDROcod/ACETAM 5/325 [[place] 1 - 2 ea PO Q6H PRN #14 tablet 07/08/18 5/325] Ondansetron Odt [Zofran] 4 mg TL Q6H PRN #10 tablet 08/03/18 - Allergies Allergies/Adverse Reactions: Allergies Allergy/AdvReac Type Severity Reaction Status Date / Time Penicillins Allergy Edema Verified 08/03/18 00:18 cillins Allergy Edema Uncoded 11/11/17 19:20 - Social History Does the pt smoke?: Yes Smoking Status: Current every day smoker Does the pt drink ETOH?: Yes Does the pt have substance abuse?: No - Immunizations Immunizations are current?: Yes Immunizations: TDAP >10years/unknown - POLST Patient has POLST: No PD ED PE NORMAL - Vitals Vital signs reviewed: Yes (normal ) - General General: Alert and oriented X 3, No acute distress, Well developed/nourished, Other (glassy eyed and cooperative) - HEENT HEENT: Atraumatic, PERRL, EOMI - Neck Neck: Supple, no meningeal sign - Cardiac Cardiac: RRR, No murmur - Respiratory Respiratory: No respiratory distress, Clear bilaterally - Abdomen Abdomen: Soft, Non tender - Back Back: No CVA TTP, No spinal TTP - Derm Derm: Normal color, Warm and dry, No rash - Extremities Extremities: No deformity, No edema - Neuro Neuro: Alert and oriented X 3, 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, No motor deficit, No sensory deficit, Normal speech Eye Opening: Spontaneous Motor: Obeys Commands Verbal: Oriented GCS Score: 15 - Psych Psych: Normal mood, Normal affect Results - Vitals Vitals: Vital Signs - 24 hr 08/03/18 08/03/18 08/03/18 00:15 01:12 02:50 Temperature 37.0 C Heart Rate 88 87 Respiratory 18 15 16 Rate Blood Pressure 106/84 H 103/69 O2 Saturation 100 97 Oxygen O2 Source Room air - Labs Labs: Laboratory Tests 08/03/18 08/03/18 08/03/18 00:31 00:31 01:40 WBC 10.3 RBC 4.45 L Hgb 12.9 L Hct 38.2 L MCV 85.7 MCH 28.9 MCHC 33.7 RDW 13.6 Plt Count 234 MPV 8.0 Neut # (Auto) 7.8 H Lymph # (Auto) 1.6 [place] # (Auto) 0.7 Eos # (Auto) 0.1 Baso # (Auto) 0.1 Absolute Nucleated RBC 0.00 Nucleated RBC % 0.0 Sodium 140 Potassium 3.6 Chloride 105 Carbon Dioxide 23 Anion Gap 12.0 BUN 12 Creatinine 0.8 Estimated GFR (MDRD) 115 Glucose 106 H Calcium 8.4 L Total Bilirubin 0.9 AST 27 ALT 30 Alkaline Phosphatase 65 Total Protein 7.0 Albumin 4.3 Globulin 2.7 Albumin/Globulin Ratio 1.6 Lipase 19 L Urine Color YELLOW Urine Clarity CLEAR Urine pH 7.5 Ur Specific [place] 1.015 Urine Protein NEGATIVE Urine Glucose (UA) NEGATIVE Urine Ketones 15 H Urine Occult Blood NEGATIVE Urine Nitrite NEGATIVE Urine Bilirubin NEGATIVE Urine Urobilinogen 0.2 (NORMAL) Ur Leukocyte Esterase NEGATIVE Ur Microscopic Review NOT INDICATED Urine Culture Comments NOT INDICATED Urine Opiates Screen NEGATIVE Ur Oxycodone Screen NEGATIVE Urine Methadone Screen NEGATIVE Ur Propoxyphene Screen NEGATIVE Ur Barbiturates Screen NEGATIVE Ur Tricyclics Screen NEGATIVE Ur Phencyclidine Scrn NEGATIVE Ur Amphetamine Screen NEGATIVE U Methamphetamines Scrn NEGATIVE U Benzodiazepines Scrn NEGATIVE Urine Cocaine Screen NEGATIVE U Cannabinoids Screen POSITIVE H Ethyl Alcohol 134.6 PD MEDICAL DECISION MAKING - ED course Complexity details: reviewed old records, reviewed results, re-evaluated patient, considered differential, d/w patient ED course: 27-year-old male with acute nausea and vomiting and diarrhea has had resolution of his symptoms his blood work is unremarkable with the exception of a blood alcohol of over 140. He is administered intravenous fluid and Zofran and discharged. Departure - Departure Disposition: 01 Home, Self Care Clinical Impression: Gastroenteritis Condition: Stable Instructions: ED Gastroenteritis Vs Food Poison Follow-Up: [facility] [Provider Group] Prescriptions: Ondansetron Odt [Zofran] 4 mg TL Q6H PRN #10 tablet PRN Reason: Nausea / Vomiting Discharge Date/Time: 08/03/18 02:51
[2018-08-03 00:36] LABS: BASOPHILS # (AUTO) 0.1 10^3/uL (0.0-0.1); BASOPHILS % (AUTO) 0.8 %; EOSINOPHILS # (AUTO) 0.1 10^3/uL (0.0-0.7); EOSINOPHILS % (AUTO) 0.8 %; HGB - HEMOGLOBIN 12.9 g/dL (14.0-18.0); LYMPHOCYTES # (AUTO) 1.6 10^3/uL (1.5-3.5); LYMPHOCYTES % (AUTO) 15.7 %; MEAN CORPUSCULAR HEMOGLOBIN 28.9 pg (27.0-31.0); MEAN CORPUSCULAR HGB CONC 33.7 g/dL (32.0-36.0); MEAN CORPUSCULAR VOLUME 85.7 fL (80.0-94.0); MONOCYTES # (AUTO) 0.7 10^3/uL (0.0-1.0); MONOCYTES % (AUTO) 7.3 %; NEUTROPHILS # (AUTO) 7.8 10^3/uL (1.5-6.6); NEUTROPHILS % (AUTO) 75.4 %; PLT - PLATELET COUNT 234 10^3/uL (130-450); RED BLOOD COUNT 4.45 10^6/uL (4.70-6.10); RED CELL DISTRIBUTION WIDTH 13.6 % (12.0-15.0); WHITE BLOOD COUNT 10.3 x10^3/uL (4.8-10.8)
[2018-08-03 00:48] LABS: ALBUMIN 4.3 g/dL (3.2-5.5); ALBUMIN/GLOBULIN RATIO 1.6 (1.0-2.2); BILIRUBIN,TOTAL 0.9 mg/dL (0.2-1.0); CALCIUM 8.4 mg/dL (8.5-10.3); CREATININE 0.8 mg/dL (0.6-1.2)
[2018-08-03 01:14] VITALS: BP 103/69
[2018-08-03 01:49] LABS: MUDS CUTOFF CONCENTRATIONS CUTOFF CONC BELOW:
[2018-08-03 01:55] LABS: BILIRUBIN,URINE NEGATIVE (NEGATIVE); GLUCOSE, URINE (UA) NEGATIVE (NEGATIVE); KETONES,URINE (UA) 15 mg/dL (NEGATIVE); LEUKOCYTE ESTERASE, URINE NEGATIVE (NEGATIVE); NITRITE,URINE NEGATIVE (NEGATIVE); OCCULT BLOOD,URINE NEGATIVE (NEGATIVE); PH,URINE 7.5 PH (5.0-7.5); PROTEIN,URINE NEGATIVE (NEGATIVE); UROBILINOGEN,URINE 0.2 (NORMAL) E.U./dL (NORMAL)
[2018-08-03 01:57] LABS: CLARITY,URINE CLEAR (CLEAR)
[2018-08-03 02:06] LABS: AMPHETAMINE SCREEN,URINE NEGATIVE (NEGATIVE); BENZODIAZEPINES SCREEN, URINE NEGATIVE (NEGATIVE); COCAINE SCREEN URINE NEGATIVE (NEGATIVE); METHADONE SCREEN, URINE NEGATIVE (NEGATIVE); METHAMPHETAMINES SCREEN, URINE NEGATIVE (NEGATIVE); OPIATE SCREEN, URINE NEGATIVE (NEGATIVE); OXYCODONE SCREEN, URINE NEGATIVE (NEGATIVE); PROPOXYPHENE SCREEN, URINE NEGATIVE (NEGATIVE); TRICYCLIC ANTIDEPRESSANT,URINE NEGATIVE (NEGATIVE)
== END 2018-08-03 02:51 | disposition home or self-care (01) ==
LOC: EDUNIT# → ED 00:06
DX: K52.9 Noninfective gastroenteritis and colitis, unspecified (principal); F17.200 Nicotine dependence, unspecified, uncomplicated
CPT/HCPCS: 36415; 80053; 80306; 80320; 81001; 81003; 83690; 85025; 87086; 96360; 99283

== ENCOUNTER 2019-01-11 09:59 | Outpatient (CLI) | payer SELFPAY | END 2019-01-11 10:00 | disposition critical access hospital (66) | LOC: EMS 09:59 | PROVIDERS: ATTEND Surgery | DX: R11.0 Nausea (principal); R52 Pain, unspecified; R53.81 Other malaise | CPT/HCPCS: A0425; A0429 ==

== ENCOUNTER 2019-01-11 10:19 | Emergency (ER) | payer SELFPAY ==
[2019-01-11 10:26] VITALS: BP 122/87
--- NOTE | 2019-01-11 10:30 | ED Physician Documentation ---
PD HPI ALTERED MENTAL STATUS - Stated complaint Stated Complaint: METH/HEROIN WITHDRAWAL - Chief complaint Chief Complaint: General - History obtained from History obtained from: Patient, EMS - History of Present Illness Timing - onset: Today (He states he been doing meth and heroin regularly for the last several months and decided he would like to quit today. There is no particular turning points in her complications such as legal problem. However he would like to stop the drug use. He called the ambulance to come here for help. He is also feeling anxious after heroin earlier today. He has not had any sober periods more than a day over the last several months. He states he started doing drug use this past August I believe. Prior to that he denied drug use regularly other than marijuana.) Timing - duration: Hours (he is feeling anxious the past few hours.) Timing - details: Gradual onset (today) Associated symptoms: Other (denies skin abscesses). No: Fever, Headache, Stiff neck, Dyspnea, NVD Contributing factors: Substance abuse, Known psych illness (He states he does have a history of some schizoaffective disorder in the past and had been prescribed medications. He states he has not been taking them since August.). No: Recent illness Basline status: Alert and oriented X 3, Ambulatory Similar symptoms before: Has not had sx before (He has not had periods where he states he is ready to stop drugs until the last several days and then was feeling more sincere about it today.) Recently seen: Not recently seen Review of Systems Constitutional: denies: Fever Nose: denies: Rhinorrhea / runny nose, Congestion Throat: denies: Sore throat Respiratory: denies: Cough GI: denies: Abdominal Pain, Vomiting, Diarrhea Skin: denies: Lesions Neurologic: denies: Focal weakness, Numbness, Headache Psychiatric: reports: Anxiety. denies: Depressed, Suicidal PD PAST MEDICAL HISTORY - Past Medical History Cardiovascular: None Respiratory: None Neuro: None Endocrine/Autoimmune: None GI: None : None HEENT: None Psych: None Musculoskeletal: None Derm: None - Past Surgical History Past Surgical History: No - Present Medications Home Medications: Ambulatory Orders Medication Instructions Recorded Confirmed LORazepam [Ativan] 1 mg PO TID PRN #25 tablet 01/11/19 Promethazine [Phenergan] 25 mg PO Q6H PRN #25 tab 01/11/19 - Allergies Allergies/Adverse Reactions: Allergies Allergy/AdvReac Type Severity Reaction Status Date / Time Penicillins Allergy Edema Verified 01/11/19 10:25 cillins Allergy Edema Uncoded 01/11/19 10:25 - Social History Does the pt smoke?: Yes Smoking Status: Current every day smoker Does the pt drink ETOH?: Yes Does the pt have substance abuse?: No - Immunizations Immunizations are current?: Yes Immunizations: TDAP >10years/unknown - POLST Patient has POLST: No PD ED PE NORMAL - Vitals Vital signs reviewed: Yes - General General: Alert and oriented X 3, Well developed/nourished, Other (He is somewhat anxious but able to converse logically and without tangentiality. There is no report of hallucinations. He is pleasant and interacts well. He denies suicidality. He states he would like help with drug withdrawal and detox and denies any prior attendance at programs or meetings.) - Neck Neck: Supple, no meningeal sign, No bony TTP, No adenopathy - Cardiac Cardiac: RRR, No murmur - Respiratory Respiratory: Clear bilaterally - Abdomen Abdomen: Soft, Non tender - Derm Derm: Normal color, Warm and dry, No rash - Extremities Extremities: Normal ROM s pain - Neuro Neuro: Alert and oriented X 3, No motor deficit, Normal speech Results - Vitals Vitals: Vital Signs - 24 hr 01/11/19 01/11/19 10:22 10:30 Temperature 36.9 C Heart Rate 57 L 61 Respiratory 16 17 Rate Blood Pressure 122/87 H 122/87 H O2 Saturation 99 97 Oxygen O2 Source Room air PD MEDICAL DECISION MAKING - ED course Complexity details: considered differential (We will give him medication to help with withdrawal from narcotics and math. He does not feel too shaky right now but likely will shortly so we can provide some benzodiazepines early. Both of those and should not be released to the we will get social work to discuss with him potential for rehab programs for acute detox.), d/w patient ED course: The patient states he change his mind and wanted to leave and not wait for social work to give him information. I tried to offer him prescriptions for withdrawal in the left prematurely. Departure - Departure Disposition: ED [place] Clinical Impression: Drug abuse and dependence, Anxiety Condition: Stable Record reviewed to determine appropriate education?: Yes Instructions: ED Drug Abuse General, ED Narcotic Abuse Follow-Up: [facility] [Provider Group] Prescriptions: LORazepam [Ativan] 1 mg PO TID PRN #25 tablet PRN Reason: Anxiety Promethazine [Phenergan] 25 mg PO Q6H PRN #25 tab PRN Reason: Nausea / Vomiting Discharge Date/Time: 01/11/19 10:59
== END 2019-01-11 10:59 | disposition left against medical advice (07) ==
LOC: ED 10:19
DX: F11.20 Opioid dependence, uncomplicated (principal); F15.20 Other stimulant dependence, uncomplicated; F41.9 Anxiety disorder, unspecified; F17.200 Nicotine dependence, unspecified, uncomplicated
CPT/HCPCS: 80053; 80307; 80320; 80329; 83690; 85025; 99282; 99284

== ENCOUNTER 2019-12-24 18:20 | Outpatient (CLI) | payer MEDICAID | END 2019-12-24 18:21 | disposition critical access hospital (66) | LOC: EMS 18:20 | PROVIDERS: ATTEND Surgery | DX: R41.82 Altered mental status, unspecified (principal); R46.89 Other symptoms and signs involving appearance and behavior | CPT/HCPCS: A0425; A0429; A0999 ==

== ENCOUNTER 2019-12-24 18:37 | Emergency (ER) | payer MEDICAID ==
[2019-12-24] MEDS ORDERED: SODIUM CHLORIDE 0.9% 1,000 ML IV ONE (18:46)
[2019-12-24] MEDS ORDERED: KETAMINE 500 MG/10 ML VIAL IVP STA (18:46)
[2019-12-24] MEDS ORDERED: LORazepam 2 MG/ML VIAL IVP STA (18:46)
--- NOTE | 2019-12-24 18:52 | ED Physician Documentation ---
<Mark hCaves - Last Filed: 12/24/19 21:43> History of Present Illness - Stated complaint Stated Complaint: AMS - History obtained from History obtained from: Patient, EMS - History of Present Illness Timing: Today (29-year-old gentleman brought in by ambulance because he had been acting odd. Basically running around the street in [place] with a shirt off. He is not verbal for me, he is fighting with the paramedics. There is a report of drug use and that is corroborated by review of the chart.) Review of Systems Unable to obtain: Uncooperative PD PAST MEDICAL HISTORY - Past Medical History Cardiovascular: None Respiratory: None Neuro: None Endocrine/Autoimmune: None GI: None : None HEENT: None Psych: None Musculoskeletal: None Derm: None - Past Surgical History Past Surgical History: No - Present Medications Home Medications: Ambulatory Orders Medication Instructions Recorded Confirmed LORazepam [Ativan] 1 mg PO TID PRN #25 tablet 01/11/19 Promethazine [Phenergan] 25 mg PO Q6H PRN #25 tab 01/11/19 - Allergies Allergies/Adverse Reactions: Allergies Allergy/AdvReac Type Severity Reaction Status Date / Time Penicillins Allergy Edema Verified 01/11/19 10:25 cillins Allergy Edema Uncoded 01/11/19 10:25 - Social History Does the pt smoke?: Yes Smoking Status: Current every day smoker Does the pt drink ETOH?: Yes Does the pt have substance abuse?: No - Immunizations Immunizations are current?: Yes Immunizations: TDAP >10years/unknown - POLST Patient has POLST: No PD ED PE NORMAL - Vitals Vital signs reviewed: Yes - General General: Other (He is alert and follows simple commands, is basically nonverbal) - HEENT HEENT: Other (Dilated equal pupils that are reactive) - Neck Neck: Supple, no meningeal sign, No bony TTP - Cardiac Cardiac: Other (Tachycardic but regular without murmur) - Respiratory Respiratory: No respiratory distress, Clear bilaterally - Abdomen Abdomen: Soft, Non tender - Back Back: No CVA TTP, No spinal TTP - Derm Derm: Normal color, Warm and dry - Extremities Extremities: No edema, No calf tenderness / cord - Neuro Neuro: No motor deficit Eye Opening: Spontaneous Motor: Obeys Commands Verbal: Incomprehensible GCS Score: 12 Results - EKG (time done) 1272 Rate: Rate (enter#) (128) Rhythm: Sinus tachycardia [place]: Normal Intervals: Normal [place] QRS: LVH Ischemia: Normal ST segments Computer interpretation: Agree with computer PD MEDICAL DECISION MAKING - ED course ED course: 29-year-old gentleman presents fighting probably intoxicated on methamphetamines, he is needing to be physically restrained by multiple people on arrival. An IV was placed and he was given 200 mg of ketamine and 1 mg of Ativan IV. This resulted in excellent sedation in fact needed some supplemental oxygen and a nasal airway for a few minutes. Started to wake up though and was given 10 mg of Zyprexa IM. Care to Dr. Corral at shift change pending reevaluation after blood alcohol in a more appropriate range. If he is totally appropriate, he could be discharged with or without social work consultation, if still gravely disabled would need evaluation by the DCR. Departure - Departure Disposition: 01 Home, Self Care Clinical Impression: Drug abuse and dependence Alcohol intoxication Qualifiers: Complication of substance-induced condition: with delirium Qualified Code(s): F10.921 - Alcohol use, unspecified with intoxication delirium Condition: Stable Instructions: ED Drug Abuse General, ED Alcohol Intoxication Follow-Up: your, doctor [Other] - Tomorrow <Adolfo Corral - Last Filed: 12/25/19 06:27> Results - Vitals Vitals: Vital Signs - 24 hr 12/24/19 12/24/19 12/24/19 18:45 19:13 20:34 Temperature 36.2 C L Heart Rate 118 H 110 H 122 H Respiratory 14 16 16 Rate Blood Pressure 153/82 H 129/85 H 120/69 O2 Saturation 97 96 94 12/24/19 12/24/19 12/25/19 21:13 22:35 00:30 Temperature Heart Rate 101 H 92 94 Respiratory 18 20 12 Rate Blood Pressure 126/74 123/83 H 93/66 O2 Saturation 97 99 97 12/25/19 12/25/19 12/25/19 02:30 04:08 06:04 Temperature Heart Rate 91 87 80 Respiratory 16 15 15 Rate Blood Pressure 98/54 L 93/66 105/69 O2 Saturation 94 96 96 Oxygen O2 Source Room air Oxygen Flow Rate 6 - Labs Labs: Laboratory Tests 12/24/19 12/24/19 12/24/19 18:50 18:50 18:50 WBC 15.1 H RBC 4.79 Hgb 13.3 L Hct 43.1 MCV 90.0 MCH 27.8 MCHC 30.9 L RDW 14.2 Plt Count 280 MPV 10.2 Neut # (Auto) 8.3 H Lymph # (Auto) 4.7 H [place] # (Auto) 1.8 H Eos # (Auto) 0.2 Baso # (Auto) 0.1 Absolute Nucleated RBC 0.00 Band Neuts % (Manual) Not Reportable Abnorm Lymph % (Manual) Not Reportable Nucleated RBC % 0.0 Neutrophils # (Manual) Not Reportable Lymphocytes # (Manual) Not Reportable Monocytes # (Manual) Not Reportable Eosinophils # (Manual) Not Reportable Basophils # (Manual) Not Reportable Differential Comment MANUAL=AUTO DIFF Manual Slide Review Indicated Platelet Estimate NORMAL (130-450,000) Platelet Morphology NORMAL APPEARANCE RBC Morph Micro Appear NORMAL APPEARANCE Sodium 141 Potassium 3.4 L Chloride 100 L Carbon Dioxide 24 Anion Gap 17.0 H BUN 18 Creatinine 0.9 Estimated GFR (MDRD) 99 Glucose 94 Calcium 9.2 Total Bilirubin 0.6 AST 41 ALT 48 Alkaline Phosphatase 88 Total Creatine Kinase 231 Total Protein 7.8 Albumin 4.9 Globulin 2.9 Albumin/Globulin Ratio 1.7 Lipase 128 H TSH 2.29 Urine Color Urine Clarity Urine pH Ur Specific [place] Urine Protein Urine Glucose (UA) Urine Ketones Urine Occult Blood Urine Nitrite Urine Bilirubin Urine Urobilinogen Ur Leukocyte Esterase Ur Microscopic Review Urine Culture Comments Salicylates < 6.0 Urine Opiates Screen Ur Oxycodone Screen Urine Methadone Screen Ur Propoxyphene Screen Acetaminophen < 10 L Ur Barbiturates Screen Ur Tricyclics Screen Ur Phencyclidine Scrn Ur Amphetamine Screen U Methamphetamines Scrn U Benzodiazepines Scrn Urine Cocaine Screen U Cannabinoids Screen Ethyl Alcohol 312.6 12/24/19 19:00 WBC RBC Hgb Hct MCV MCH MCHC RDW Plt Count MPV Neut # (Auto) Lymph # (Auto) [place] # (Auto) Eos # (Auto) Baso # (Auto) Absolute Nucleated RBC Band Neuts % (Manual) Abnorm Lymph % (Manual) Nucleated RBC % Neutrophils # (Manual) Lymphocytes # (Manual) Monocytes # (Manual) Eosinophils # (Manual) Basophils # (Manual) Differential Comment Manual Slide Review Platelet Estimate Platelet Morphology RBC Morph Micro Appear Sodium Potassium Chloride Carbon Dioxide Anion Gap BUN Creatinine Estimated GFR (MDRD) Glucose Calcium Total Bilirubin AST ALT Alkaline Phosphatase Total Creatine Kinase Total Protein Albumin Globulin Albumin/Globulin Ratio Lipase TSH Urine Color LIGHT YELLOW Urine Clarity CLEAR Urine pH 6.0 Ur Specific [place] 1.010 Urine Protein NEGATIVE Urine Glucose (UA) NEGATIVE Urine Ketones NEGATIVE Urine Occult Blood TRACE-INTA Urine Nitrite NEGATIVE Urine Bilirubin NEGATIVE Urine Urobilinogen 0.2 (NORMAL) Ur Leukocyte Esterase NEGATIVE Ur Microscopic Review NOT INDICATED Urine Culture Comments NOT INDICATED Salicylates Urine Opiates Screen NEGATIVE Ur Oxycodone Screen NEGATIVE Urine Methadone Screen NEGATIVE Ur Propoxyphene Screen NEGATIVE Acetaminophen Ur Barbiturates Screen NEGATIVE Ur Tricyclics Screen NEGATIVE Ur Phencyclidine Scrn NEGATIVE Ur Amphetamine Screen POSITIVE H U Methamphetamines Scrn POSITIVE H U Benzodiazepines Scrn NEGATIVE Urine Cocaine Screen NEGATIVE U Cannabinoids Screen POSITIVE H Ethyl Alcohol PD MEDICAL DECISION MAKING - ED course Complexity details: other (Patient was signed out to me at shift change by Dr. Cristian Chaves. Patient was reevaluated at 6:30 AM. He is clinically sober at this time he has a steady gait, clear speech he is tolerated p.o. challenge she has medical decision-making capability and capacity patient denies any auditory or visual hallucinations or any homicidal or suicidal thoughts and is requesting to be discharged home at this time.)
[2019-12-24 18:57] LABS: BASOPHILS # (AUTO) 0.1 10^3/uL (0.0-0.1); BASOPHILS % (AUTO) 0.9 %; EOSINOPHILS # (AUTO) 0.2 10^3/uL (0.0-0.7); EOSINOPHILS % (AUTO) 1.3 %; HGB - HEMOGLOBIN 13.3 g/dL (14.0-18.0); NEUTROPHILS % (AUTO) 54.7 %
[2019-12-24] MEDS ORDERED: OLANZapine 10 MG VIAL IM STA (18:57)
[2019-12-24 19:03] LABS: LYMPHOCYTES # (AUTO) 4.7 10^3/uL (1.5-3.5); LYMPHOCYTES % (AUTO) 30.8 %; MEAN CORPUSCULAR HEMOGLOBIN 27.8 pg (27.0-31.0); MEAN CORPUSCULAR HGB CONC 30.9 g/dL (32.0-36.0); MEAN PLATELET VOLUME 10.2 fL (7.4-11.4); MONOCYTES # (AUTO) 1.8 10^3/uL (0.0-1.0); MONOCYTES % (AUTO) 11.6 %; NEUTROPHILS # (AUTO) 8.3 10^3/uL (1.5-6.6); PLT - PLATELET COUNT 280 10^3/uL (130-450); RED BLOOD COUNT 4.79 10^6/uL (4.70-6.10); RED CELL DISTRIBUTION WIDTH 14.2 % (12.0-15.0); WHITE BLOOD COUNT 15.1 x10^3/uL (4.8-10.8)
[2019-12-24 19:16] LABS: BILIRUBIN,URINE NEGATIVE (NEGATIVE); GLUCOSE, URINE (UA) NEGATIVE (NEGATIVE); KETONES,URINE (UA) NEGATIVE (NEGATIVE); LEUKOCYTE ESTERASE, URINE NEGATIVE (NEGATIVE); MUDS CUTOFF CONCENTRATIONS CUTOFF CONC BELOW:; NITRITE,URINE NEGATIVE (NEGATIVE); OCCULT BLOOD,URINE TRACE-INTA (NEGATIVE); PROTEIN,URINE NEGATIVE (NEGATIVE); UROBILINOGEN,URINE 0.2 (NORMAL) E.U./dL (NORMAL)
[2019-12-24 19:17] LABS: ACETAMINOPHEN < 10 ug/mL (10-30); ALBUMIN 4.9 g/dL (3.2-5.5); ALBUMIN/GLOBULIN RATIO 1.7 (1.0-2.2); ALKALINE PHOSPHATASE 88 IU/L (42-121); ALT ALANINE AMINOTRANSFERASE 48 IU/L (10-60); AST ASPARTATE AMINOTRANSFERASE 41 IU/L (10-42); BILIRUBIN,TOTAL 0.6 mg/dL (0.2-1.0); BUN - BLOOD UREA NITROGEN 18 mg/dL (6-20); CALCIUM 9.2 mg/dL (8.5-10.3); CARBON DIOXIDE - CO2 24 mmol/L (21-32); CHLORIDE 100 mmol/L (101-111); CK- CREATINE KINASE 231 IU/L (22-269); CREATININE 0.9 mg/dL (0.6-1.2); GFR - MDRD 99 (>89); GLUCOSE 94 mg/dL (70-100); LIPASE 128 U/L (22-51); SALICYLATE < 6.0 mg/dL; SODIUM 141 mmol/L (135-145); TOTAL PROTEIN 7.8 g/dL (6.7-8.2)
[2019-12-24 19:17] LABS: CLARITY,URINE CLEAR (CLEAR)
[2019-12-24 19:26] LABS: DIFFERENTIAL COMMENT MANUAL=AUTO DIFF; PLATELET ESTIMATE, MANUAL NORMAL (130-450,000) (NORMAL); PLATELET MORPHOLOGY NORMAL APPEARANCE (NORMAL); RBC MORPHOLOGY (MULTIPLE) NORMAL APPEARANCE (NORMAL)
[2019-12-24 19:28] LABS: AMPHETAMINE SCREEN,URINE POSITIVE (NEGATIVE); COCAINE SCREEN URINE NEGATIVE (NEGATIVE); METHAMPHETAMINES SCREEN, URINE POSITIVE (NEGATIVE); OPIATE SCREEN, URINE NEGATIVE (NEGATIVE)
[2019-12-24 19:29] LABS: BENZODIAZEPINES SCREEN, URINE NEGATIVE (NEGATIVE); METHADONE SCREEN, URINE NEGATIVE (NEGATIVE); OXYCODONE SCREEN, URINE NEGATIVE (NEGATIVE); PROPOXYPHENE SCREEN, URINE NEGATIVE (NEGATIVE); TRICYCLIC ANTIDEPRESSANT,URINE NEGATIVE (NEGATIVE)
[2019-12-24] MEDS ORDERED: D5.45NS W/20 MEQ KCL 1,000 ML IV SCH (20:00)
[2019-12-25 06:05] VITALS: BP 105/69
== END 2019-12-25 06:58 | disposition home or self-care (01) ==
LOC: EDUNIT# → ED 18:37
DX: F10.129 Alcohol abuse with intoxication, unspecified (principal); F19.20 Other psychoactive substance dependence, uncomplicated; F17.200 Nicotine dependence, unspecified, uncomplicated
CPT/HCPCS: 36415; 51701; 80053; 80306; 80307; 80320; 80329; 81003; 82550; 83690; 84443; 85025; 93005; 96361; 96372; 96374; 96375; 99281; 99285; J2060; 81001; 87086

== ENCOUNTER 2020-03-04 22:32 | Outpatient (CLI) | payer MEDICAID | END 2020-03-04 22:33 | disposition critical access hospital (66) | LOC: EMS 22:32 | PROVIDERS: ATTEND Surgery | DX: R41.82 Altered mental status, unspecified (principal) | CPT/HCPCS: A0425; A0427; A0999 ==

== ENCOUNTER 2020-03-04 22:53 | Emergency (ER) | payer MEDICAID ==
--- NOTE | 2020-03-04 23:01 | ED Physician Documentation ---
PD HPI ALTERED MENTAL STATUS - Stated complaint Stated Complaint: OD - History obtained from History obtained from: Patient, EMS - History of Present Illness Timing - onset: Today Quality / character: Unresponsive Basline status: Alert and oriented X 3, Ambulatory, Independent Similar symptoms before: Has not had sx before Recently seen: Not recently seen - Additional information Additional information: BIBA. patient was at [facility] and was found unconscious and unresponsive. someone in attendance gave patient narcan and he had rapid improvement in oegel of consciousness. patient admits to smoking marijuana. per medic report, patient might have also used heroin, although patient denies this on my HPI. Review of Systems Cardiac: reports: Reviewed and negative Respiratory: reports: Reviewed and negative GI: reports: Reviewed and negative Neurologic: reports: Unresponsive, LOC. denies: Headache PD PAST MEDICAL HISTORY - Past Medical History Cardiovascular: None Respiratory: None Neuro: None Endocrine/Autoimmune: None GI: None : None HEENT: None Psych: None Musculoskeletal: None Derm: None - Past Surgical History Past Surgical History: No - Present Medications Home Medications: Ambulatory Orders Medication Instructions Recorded Confirmed LORazepam [Ativan] 1 mg PO TID PRN #25 tablet 01/11/19 Promethazine [Phenergan] 25 mg PO Q6H PRN #25 tab 01/11/19 - Allergies Allergies/Adverse Reactions: Allergies Allergy/AdvReac Type Severity Reaction Status Date / Time Penicillins Allergy Edema Verified 03/04/20 23:00 cillins Allergy Edema Uncoded 03/04/20 23:00 - Social History Does the pt smoke?: Yes Smoking Status: Current every day smoker Does the pt drink ETOH?: Yes Does the pt have substance abuse?: No - Immunizations Immunizations are current?: Yes Immunizations: TDAP >10years/unknown - POLST Patient has POLST: No PD ED PE NORMAL - Vitals Vital signs reviewed: Yes - General General: Alert and oriented X 3, No acute distress, Well developed/nourished - HEENT HEENT: PERRL, EOMI, Moist mucous membranes - Neck Neck: Supple, no meningeal sign - Cardiac Cardiac: RRR, No murmur - Respiratory Respiratory: No respiratory distress, Clear bilaterally - Abdomen Abdomen: Soft, Non tender - Derm Derm: Normal color, Warm and dry - Extremities Extremities: No tenderness to palpate, No edema - Neuro Eye Opening: To Voice (drowsy, awakens to voice but falls asleep rapidly, sometimes mid-sentence) Motor: Obeys Commands Verbal: Oriented GCS Score: 14 Results - Vitals Vitals: Oxygen O2 Source Room air - Labs Labs: Laboratory Tests 03/04/20 03/04/20 23:37 23:37 WBC 17.0 H RBC 4.39 L Hgb 12.8 L Hct 38.0 L MCV 86.6 MCH 29.2 MCHC 33.7 RDW 13.0 Plt Count 220 MPV 9.7 Neut # (Auto) 13.6 H Lymph # (Auto) 1.7 [place] # (Auto) 1.4 H Eos # (Auto) 0.1 Baso # (Auto) 0.1 Absolute Nucleated RBC 0.00 Nucleated RBC % 0.0 Sodium 137 Potassium 3.1 L Chloride 101 Carbon Dioxide 27 Anion Gap 9.0 BUN 15 Creatinine 0.7 Estimated GFR (MDRD) 132 Glucose 118 H Calcium 8.9 Total Bilirubin 0.5 AST 24 ALT 17 Alkaline Phosphatase 76 Total Protein 7.2 Albumin 4.2 Globulin 3.0 Albumin/Globulin Ratio 1.4 Lipase 26 Ethyl Alcohol < 5.0 PD MEDICAL DECISION MAKING - ED course Complexity details: reviewed results, re-evaluated patient, considered differential, d/w patient ED course: slept in ED for several hours. at end of shift, he remained asleep but awakens rapidly to voice, conversant and oriented x 3. Departure - Departure Disposition: 01 Home, Self Care Clinical Impression: Overdose Condition: Good Instructions: ED Drug Abuse General Discharge Date/Time: 03/05/20 07:08
[2020-03-04 23:44] LABS: BASOPHILS # (AUTO) 0.1 10^3/uL (0.0-0.1); BASOPHILS % (AUTO) 0.6 %; EOSINOPHILS # (AUTO) 0.1 10^3/uL (0.0-0.7); EOSINOPHILS % (AUTO) 0.7 %; HGB - HEMOGLOBIN 12.8 g/dL (14.0-18.0); LYMPHOCYTES # (AUTO) 1.7 10^3/uL (1.5-3.5); LYMPHOCYTES % (AUTO) 10.1 %; MEAN CORPUSCULAR HEMOGLOBIN 29.2 pg (27.0-31.0); MEAN CORPUSCULAR HGB CONC 33.7 g/dL (32.0-36.0); MEAN CORPUSCULAR VOLUME 86.6 fL (80.0-94.0); MEAN PLATELET VOLUME 9.7 fL (7.4-11.4); MONOCYTES # (AUTO) 1.4 10^3/uL (0.0-1.0); MONOCYTES % (AUTO) 8.1 %; NEUTROPHILS # (AUTO) 13.6 10^3/uL (1.5-6.6); NEUTROPHILS % (AUTO) 79.9 %; PLT - PLATELET COUNT 220 10^3/uL (130-450); RED BLOOD COUNT 4.39 10^6/uL (4.70-6.10)
[2020-03-04 23:58] LABS: ALBUMIN 4.2 g/dL (3.2-5.5); ALBUMIN/GLOBULIN RATIO 1.4 (1.0-2.2); ALKALINE PHOSPHATASE 76 IU/L (42-121); ALT ALANINE AMINOTRANSFERASE 17 IU/L (10-60); AST ASPARTATE AMINOTRANSFERASE 24 IU/L (10-42); BILIRUBIN,TOTAL 0.5 mg/dL (0.2-1.0); BUN - BLOOD UREA NITROGEN 15 mg/dL (6-20); CALCIUM 8.9 mg/dL (8.5-10.3); CARBON DIOXIDE - CO2 27 mmol/L (21-32); CHLORIDE 101 mmol/L (101-111); CREATININE 0.7 mg/dL (0.6-1.2); GLUCOSE 118 mg/dL (70-100); LIPASE 26 U/L (22-51); SODIUM 137 mmol/L (135-145); TOTAL PROTEIN 7.2 g/dL (6.7-8.2)
[2020-03-05 07:01] VITALS: BP 116/85
== END 2020-03-05 07:08 | disposition home or self-care (01) ==
LOC: EDUNIT# → ED 22:53
DX: T40.1X1A Poisoning by heroin, accidental (unintentional), initial encounter (principal); R40.20 Unspecified coma; F11.10 Opioid abuse, uncomplicated; F12.90 Cannabis use, unspecified, uncomplicated; F17.200 Nicotine dependence, unspecified, uncomplicated
CPT/HCPCS: 36415; 80053; 80320; 83690; 85025; 99283; 99284

== ENCOUNTER 2020-06-21 02:04 | Outpatient (CLI) | payer MEDICAID | END 2020-06-21 02:05 | disposition EMS.NT | LOC: EMS 02:04 | PROVIDERS: ATTEND Surgery | DX: Z72.89 Other problems related to lifestyle (principal) ==

== ENCOUNTER 2020-06-24 22:19 | Outpatient (CLI) | payer MEDICAID | END 2020-06-24 22:20 | disposition critical access hospital (66) | LOC: EMS 22:19 | PROVIDERS: ATTEND Surgery | DX: R51 Headache (principal); R11.2 Nausea with vomiting, unspecified | CPT/HCPCS: A0425; A0429; A0999 ==

== ENCOUNTER 2020-06-24 22:35 | Emergency (ER) | payer MEDICAID ==
--- NOTE | 2020-06-24 23:20 | ED Physician Documentation ---
History of Present Illness - Stated complaint Stated Complaint: SANTIAGO - Chief complaint Chief Complaint: Neuro - History obtained from History obtained from: Patient, EMS - Additonal information Additional information: Patient is brought to the emergency department by EMS after complaining of headache. The patient states the headache is "in my eyeballs" and that he does not get frequent headaches. He denies any head trauma. He was not assaulted. He denies drugs or alcohol tonight, though the pt has an extensive history per our records of polysubstance abuse, including meth and heroin. Pt also has a h/o schizoaffective d/o. No neck pain. No fever or recent illness of any other kind. Patient states that he does not wish to have any ibuprofen or Tylenol for his headache. He denies focal neurologic symptoms. No other complaints at this time. Review of Systems Ten Systems: 10 systems reviewed and negative Constitutional: reports: Other (headache) Eyes: reports: Reviewed and negative Ears: reports: Reviewed and negative Nose: reports: Reviewed and negative Throat: reports: Reviewed and negative Cardiac: reports: Reviewed and negative Respiratory: reports: Reviewed and negative GI: reports: Reviewed and negative : reports: Reviewed and negative Skin: reports: Reviewed and negative Musculoskeletal: reports: Reviewed and negative Neurologic: reports: Headache. denies: Confused, Head injury, LOC Psychiatric: reports: Reviewed and negative Endocrine: reports: Reviewed and negative Immunocompromised: reports: Reviewed and negative PD PAST MEDICAL HISTORY - Past Medical History Cardiovascular: None Respiratory: None Neuro: None Endocrine/Autoimmune: None GI: None : None HEENT: None Psych: None Musculoskeletal: None Derm: None - Past Surgical History Past Surgical History: No - Present Medications Home Medications: Ambulatory Orders Medication Instructions Recorded Confirmed No Known Home Medications 06/24/20 06/24/20 - Allergies Allergies/Adverse Reactions: Allergies Allergy/AdvReac Type Severity Reaction Status Date / Time Penicillins Allergy Edema Verified 06/24/20 22:41 cillins Allergy Edema Uncoded 06/24/20 22:41 - Social History Does the pt smoke?: Yes Smoking Status: Current every day smoker Does the pt drink ETOH?: Yes Does the pt have substance abuse?: No - Immunizations Immunizations are current?: Yes Immunizations: TDAP >10years/unknown - POLST Patient has POLST: No PD ED PE NORMAL - Vitals Vital signs reviewed: Yes - General General: No acute distress, Other (Patient answers questions appropriately, but is drowsy.) - HEENT HEENT: Atraumatic, PERRL, EOMI, Moist mucous membranes - Neck Neck: Supple, no meningeal sign - Cardiac Cardiac: RRR, No murmur - Respiratory Respiratory: No respiratory distress, Clear bilaterally - Abdomen Abdomen: Soft, Non tender, Non distended - Back Back: No spinal TTP - Derm Derm: Normal color, Warm and dry, No rash - Extremities Extremities: No deformity, No edema - Neuro Neuro: 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, No motor deficit, No sensory deficit, Normal speech, Other (Drowsy, but arousable and answers questions appropriately.) - Psych Psych: Normal mood, Normal affect Results - Vitals Vitals: Vital Signs - 24 hr 06/24/20 06/24/20 06/24/20 22:39 23:00 23:50 Temperature 37.3 C 36.8 C Heart Rate 92 86 85 Respiratory 18 16 16 Rate Blood Pressure 118/81 H 114/77 118/74 O2 Saturation 99 97 96 Oxygen O2 Source Room air PD MEDICAL DECISION MAKING - ED course Complexity details: considered differential, d/w patient ED course: The patient did not have any evidence of an emergent condition at this time he refused non-narcotic management of his headache in the emergency department and seemed more interested in sleeping than answering questions. However, despite this, he was arousable and was appropriate when aroused. I felt the patient was stable for discharge home. My medical screening exam has not revealed an emergent condition at this time. Departure - Departure Disposition: 01 Home, Self Care Clinical Impression: Headache Qualifiers: Headache type: unspecified Headache chronicity pattern: acute headache Intractability: not intractable Qualified Code(s): R51 - Headache Condition: Stable Instructions: ED Headache Tension Discharge Date/Time: 06/24/20 23:51
[2020-06-24 23:51] VITALS: BP 118/74
== END 2020-06-24 23:51 | disposition home or self-care (01) ==
LOC: EDUNIT# → ED 22:35
DX: R51 Headache (principal); R40.0 Somnolence; F17.200 Nicotine dependence, unspecified, uncomplicated
CPT/HCPCS: 99283

== ENCOUNTER 2020-06-25 01:13 | Emergency (ER) | payer MEDICAID ==
[2020-06-25] MEDS ORDERED: KETOROLAC 60 MG/2 ML VIAL IM STA (01:30)
[2020-06-25] MEDS ORDERED: PROMETHAZINE 25 MG/1 ML VIAL IM STA (01:30)
--- NOTE | 2020-06-25 01:33 | ED Physician Documentation ---
History of Present Illness - Stated complaint Stated Complaint: SANTIAGO - History obtained from History obtained from: Patient - Additonal information Additional information: Patient returns to the emergency department after having been discharged within the last couple of hours. He states that he is cold and that he did not have money for a taxi. He states he still has a headache and that now he wants to be treated for it. For more specifics on the patient's headache, please see my prior note from this evening. Patient does note that he has been nauseated for the last couple days and has had some vomiting. He continues to note the he adache behind his eyes. He reiterates that he did not have any head injury and has not had any fevers, chills, or other signs of illness. Review of Systems Ten Systems: 10 systems reviewed and negative Constitutional: denies: Fever, Chills Eyes: reports: Reviewed and negative Ears: reports: Reviewed and negative Nose: reports: Reviewed and negative Throat: reports: Reviewed and negative Cardiac: reports: Reviewed and negative Respiratory: reports: Reviewed and negative GI: reports: Nausea, Vomiting : reports: Reviewed and negative Skin: reports: Reviewed and negative Musculoskeletal: reports: Reviewed and negative Neurologic: reports: Headache. denies: Head injury Psychiatric: reports: Reviewed and negative Endocrine: reports: Reviewed and negative Immunocompromised: reports: Reviewed and negative PD PAST MEDICAL HISTORY - Past Medical History Cardiovascular: None Respiratory: None Neuro: None Endocrine/Autoimmune: None GI: None : None HEENT: None Psych: None Musculoskeletal: None Derm: None - Past Surgical History Past Surgical History: No - Present Medications Home Medications: Ambulatory Orders Medication Instructions Recorded Confirmed No Known Home Medications 06/24/20 06/24/20 - Allergies Allergies/Adverse Reactions: Allergies Allergy/AdvReac Type Severity Reaction Status Date / Time Penicillins Allergy Edema Verified 06/24/20 22:41 cillins Allergy Edema Uncoded 06/24/20 22:41 - Social History Does the pt smoke?: Yes Smoking Status: Current every day smoker Does the pt drink ETOH?: Yes Does the pt have substance abuse?: No - Immunizations Immunizations are current?: Yes Immunizations: TDAP >10years/unknown - POLST Patient has POLST: No PD ED PE NORMAL - Vitals Vital signs reviewed: Yes - General General: Alert and oriented X 3, No acute distress - HEENT HEENT: Atraumatic, PERRL, EOMI, Moist mucous membranes - Neck Neck: Supple, no meningeal sign - Cardiac Cardiac: RRR, No murmur - Respiratory Respiratory: No respiratory distress - Abdomen Abdomen: Soft, Non tender - Back Back: No spinal TTP - Derm Derm: Normal color, Warm and dry, No rash - Extremities Extremities: No deformity - Neuro Neuro: Alert and oriented X 3 (Patient is much more alert this time and not so drowsy, though he does lay in the bed with his shirt over his face.) - Psych Psych: Normal mood, Normal affect Results - Vitals Vitals: Oxygen O2 Source Room air PD MEDICAL DECISION MAKING - ED course Complexity details: considered differential, d/w patient ED course: I discussed with the patient that once again, I do not find evidence of an emergent cause of the patient's symptoms. I have given him doses of Toradol and Phenergan here. Departure - Departure Disposition: 01 Home, Self Care Clinical Impression: Headache Qualifiers: Headache type: unspecified Headache chronicity pattern: acute headache Intractability: not intractable Qualified Code(s): R51 - Headache Condition: Stable Instructions: ED Headache Tension
[2020-06-25 02:35] VITALS: BP 129/77
== END 2020-06-25 02:35 | disposition home or self-care (01) ==
LOC: ED 01:13
DX: R51 Headache (principal); F17.200 Nicotine dependence, unspecified, uncomplicated
CPT/HCPCS: 96372; 99283; 99284

== ENCOUNTER 2021-01-10 14:57 | Emergency (ER) | payer MEDICAID ==
[2021-01-10 15:05] VITALS: BP 139/95
--- NOTE | 2021-01-10 15:20 | ED Physician Documentation ---
PD HPI HEENT - Stated complaint Stated Complaint: SORE THROAT - Chief complaint Chief Complaint: Heent - History obtained from History obtained from: Patient - History of Present Illness Timing - onset: Last night Timing - details: Abrupt onset (he ate some turkmen food and felt an abrupt onset of soreness and pain in back of throat when he was swallowing it. He did not feel that he had chewed any hard objects. He states he choked several times. Had ongoing pain with swallowing since, continued into today. Albe to swallow water.), Still present Location: Throat Associated symptoms: Other (denies itching nor rash.). No: Fever, Congestion, Rhinorrhea, Facial swelling Similar symptoms before: Has not had sx before Review of Systems Constitutional: denies: Fever, Chills Nose: denies: Rhinorrhea / runny nose, Congestion Throat: reports: Sore throat Cardiac: denies: Chest pain / pressure Respiratory: denies: Dyspnea, Cough GI: denies: Abdominal Pain, Nausea, Vomiting, Diarrhea, Bloody / black stool Psychiatric: reports: Anxiety PD PAST MEDICAL HISTORY - Past Medical History Cardiovascular: None Respiratory: None Neuro: None Endocrine/Autoimmune: None GI: None : None HEENT: None Psych: None Musculoskeletal: None Derm: None - Past Surgical History Past Surgical History: No - Present Medications Home Medications: Ambulatory Orders Medication Instructions Recorded Confirmed Lidocaine Viscous 2% [Xylocaine 5 ml PO Q4H PRN #100 ml 01/10/21 Viscous 2%] diphenhydrAMINE ELIXIR [Benadryl 25 mg PO Q6H PRN #120 ml 01/10/21 Elixir] - Allergies Allergies/Adverse Reactions: Allergies Allergy/AdvReac Type Severity Reaction Status Date / Time Penicillins Allergy Edema Verified 01/10/21 15:01 cillins Allergy Edema Uncoded 01/10/21 15:01 - Social History Does the pt smoke?: Yes Smoking Status: Current every day smoker Does the pt drink ETOH?: Yes Does the pt have substance abuse?: No - Immunizations Immunizations are current?: Yes Immunizations: TDAP >10years/unknown - POLST Patient has POLST: No PD ED PE NORMAL - Vitals Vital signs reviewed: Yes - General General: Alert and oriented X 3, Well developed/nourished, Other (appears uncomfortable with swallowing, also generally anxious. ) - HEENT HEENT: No: Pharynx benign (palatte and upper pharynx is normal. I used glidescope to look just back of tongue area to lower pharynx and saw general redness with mild inflammation but no exudate nor sores. No edema per se. ) - Neck Neck: Supple, no meningeal sign, No adenopathy - Cardiac Cardiac: RRR, No murmur - Respiratory Respiratory: Clear bilaterally - Derm Derm: Normal color, Warm and dry, No rash Results - Vitals Vitals: Vital Signs - 24 hr 01/10/21 15:01 Temperature 36.8 C Heart Rate 100 Respiratory 16 Rate Blood Pressure 139/95 H O2 Saturation 99 Oxygen O2 Source Room air PD MEDICAL DECISION MAKING - ED course Complexity details: re-evaluated patient (feels improved quite a bit with PO lido and benadryl. Redness seem with video. Presume some local irritation or could be thermal burn but he said did not seem overly hot. Was regular food and not a caustic material. I presume will improve with time. ), considered differential (seems likely some pharyngeal irritation from the food and choking/cough. No general swelling nor itching, so does not seem allergic reacti on. ), d/w patient Departure - Departure Disposition: 01 Home, Self Care Clinical Impression: Choking episode Abrasion of pharynx Qualifiers: Encounter type: initial encounter Qualified Code(s): S10.11XA - Abrasion of throat, initial encounter Condition: Stable Record reviewed to determine appropriate education?: Yes Prescriptions: diphenhydrAMINE ELIXIR [Benadryl Elixir] 25 mg PO Q6H PRN #120 ml PRN Reason: Pain Lidocaine Viscous 2% [Xylocaine Viscous 2%] 5 ml PO Q4H PRN #100 ml PRN Reason: Pain Comments: The back of the throat appears irritated or mild abrasion but no lacerations or more significant process. I would anticipate this improving over a day or 2. Meanwhile you can use diphenhydramine with lidocaine to help with the discomfort and pain of the area. Soft food only and liquids to stay hydrated. Recheck if not improved well over the next 1 to 2 days completely. Discharge Date/Time: 01/10/21 16:20
[2021-01-10] MEDS ORDERED: diphenhydrAMINE ELIXIR 25 MG/10 ML UDC PO STA (15:35)
[2021-01-10] MEDS ORDERED: MAG HYDROX/AL HYDROX/SIMETH 30 ML UDC PO STA (15:35)
[2021-01-10] MEDS ORDERED: LIDOCAINE VISCOUS 2% 15 ML UDC MM STA (15:35)
== END 2021-01-10 16:20 | disposition home or self-care (01) ==
LOC: ED 14:57
DX: T17.228A Food in pharynx causing other injury, initial encounter (principal); F17.200 Nicotine dependence, unspecified, uncomplicated
CPT/HCPCS: 99282; 99283; A9270

== ENCOUNTER 2021-04-13 16:35 | Emergency (ER) | payer MEDICAID ==
--- NOTE | 2021-04-13 16:44 | ED Physician Documentation ---
PD HPI MHE - Stated complaint Stated Complaint: SI - History obtained from History obtained from: Patient, Police - Additional information Additional information: 30-year-old gentleman is set up of living on the streets, states that people of been giving him crack cocaine, methamphetamines, and heroin. Occasional injection drug use which he says he uses being forced to do. Mostly smoking it. Also has been drinking. Brought in accompanied by [place] [employer] because he tried to kill himself by hanging today. Reportedly had a noose around his neck tied up to something but did not jump and it took about 20 minutes to calm him down. He is still suicidal but is interested in treatment. Galileo, the DCR is here on patient's arrival and agrees the patient would not be a good shara voluntary and recommends dispatching the DCR when labs are back. Review of Systems Ten Systems: 10 systems reviewed and negative PD PAST MEDICAL HISTORY - Past Medical History Cardiovascular: None Respiratory: None Neuro: None Endocrine/Autoimmune: None GI: None : None HEENT: None Psych: None Musculoskeletal: None Derm: None - Past Surgical History Past Surgical History: No - Allergies Allergies/Adverse Reactions: Allergies Allergy/AdvReac Type Severity Reaction Status Date / Time Penicillins Allergy Edema Verified 04/13/21 16:46 cillins Allergy Edema Uncoded 04/13/21 16:46 - Social History Does the pt smoke?: Yes Smoking Status: Current every day smoker Does the pt drink ETOH?: Yes Does the pt have substance abuse?: No - Immunizations Immunizations are current?: Yes Immunizations: TDAP >10years/unknown - POLST Patient has POLST: No PD ED PE NORMAL - Vitals Vital signs reviewed: Yes - General General: Alert and oriented X 3, Other (Intermittent modest Eye contact but generally a good historian. Slightly hypervigilant.) - HEENT HEENT: PERRL, EOMI - Neck Neck: Supple, no meningeal sign, No bony TTP - Cardiac Cardiac: RRR, No murmur - Respiratory Respiratory: No respiratory distress, Clear bilaterally - Abdomen Abdomen: Soft, Non tender - Back Back: No CVA TTP, No spinal TTP - Derm Derm: Normal color, Warm and dry - Extremities Extremities: No edema, No calf tenderness / cord - Neuro Neuro: Alert and oriented X 3, Normal speech Results - Vitals Vitals: Vital Signs - 24 hr 04/13/21 04/14/21 16:40 00:03 Temperature 36.4 C L 36.5 C Heart Rate 75 84 Respiratory 18 16 Rate Blood Pressure 126/82 H 104/65 O2 Saturation 94 98 Oxygen O2 Source Room air - EKG (time done) 1755 Rate: Rate (enter#) (75) Rhythm: NSR [place]: Normal Intervals: Normal CT QRS: Normal Ischemia: Non specific changes. No: ST elevation c/w ischemia, ST depression - Labs Labs: Laboratory Tests 04/13/21 04/13/21 04/13/21 16:49 16:49 16:49 WBC 8.8 RBC 4.53 L Hgb 13.1 L Hct 39.4 L MCV 87.0 MCH 28.9 MCHC 33.2 RDW 13.0 Plt Count 254 MPV 9.9 Neut # (Auto) 4.9 Lymph # (Auto) 2.5 Hall # (Auto) 1.1 H Eos # (Auto) 0.2 Baso # (Auto) 0.1 Absolute Nucleated RBC 0.00 Nucleated RBC % 0.0 Sodium 138 Potassium 3.5 Chloride 102 Carbon Dioxide 22 Anion Gap 14.0 H BUN 22 H Creatinine 1.2 Estimated GFR (MDRD) 71 L Glucose 103 H Calcium 8.9 Total Bilirubin 1.0 AST 29 ALT 20 Alkaline Phosphatase 74 Total Protein 7.1 Albumin 4.3 Globulin 2.8 Albumin/Globulin Ratio 1.5 Lipase 27 TSH 1.33 Urine Color Urine Clarity Urine pH Ur Specific Canmer Urine Protein Urine Glucose (UA) Urine Ketones Urine Occult Blood Urine Nitrite Urine Bilirubin Urine Urobilinogen Ur Leukocyte Esterase Urine RBC Urine WBC Ur Squamous Epith Cells Urine Bacteria Ur Microscopic Review Urine Culture Comments Nasal Adenovirus (PCR) Nasal B. parapertussis DNA (PCR) Nasal Coronavir 229E PCR Nasal Coronavir HKU1 PCR Nasal Coronavir NL63 PCR Nasal Coronavir OC43 PCR Nasal Enterovir/Rhinovir PCR Nasal Influenza B PCR Nasal Influenza A PCR Nasal Parainfluen 1 PCR Nasal Parainfluen 2 PCR Nasal Parainfluen 3 PCR Nasal Parainfluen 4 PCR Nasal RSV (PCR) Nasal B.pertussis DNA PCR Nasal C.pneumoniae (PCR) Sin Human Metapneumo PCR Nasal M.pneumoniae (PCR) Nasal SARS-CoV-2 (PCR) Salicylates < 6.0 Urine Opiates Screen Ur Oxycodone Screen Urine Methadone Screen Ur Propoxyphene Screen Acetaminophen < 10 L Ur Barbiturates Screen Ur Tricyclics Screen Ur Phencyclidine Scrn Ur Amphetamine Screen U Methamphetamines Scrn U Benzodiazepines Scrn Urine Cocaine Screen U Cannabinoids Screen Ethyl Alcohol 125.3 04/13/21 04/13/21 04/13/21 16:49 16:59 19:06 WBC RBC Hgb Hct MCV MCH MCHC RDW Plt Count MPV Neut # (Auto) Lymph # (Auto) Hall # (Auto) Eos # (Auto) Baso # (Auto) Absolute Nucleated RBC Nucleated RBC % Sodium Potassium Chloride Carbon Dioxide Anion Gap BUN Creatinine Estimated GFR (MDRD) Glucose Calcium Total Bilirubin AST ALT Alkaline Phosphatase Total Protein Albumin Globulin Albumin/Globulin Ratio Lipase TSH Urine Color YELLOW Urine Clarity CLEAR Urine pH 6.0 Ur Specific Canmer 1.015 Urine Protein NEGATIVE Urine Glucose (UA) NEGATIVE Urine Ketones NEGATIVE Urine Occult Blood SMALL H Urine Nitrite NEGATIVE Urine Bilirubin NEGATIVE Urine Urobilinogen 0.2 (NORMAL) Ur Leukocyte Esterase NEGATIVE Urine RBC 0-5 Urine WBC 0-3 Ur Squamous Epith Cells NONE SEEN Urine Bacteria None Seen Ur Microscopic Review INDICATED Urine Culture Comments NOT INDICATED Nasal Adenovirus (PCR) NOT DETECTED Nasal B. parapertussis DNA (PCR) NOT DETECTED Nasal Coronavir 229E PCR NOT DETECTED Nasal Coronavir HKU1 PCR NOT DETECTED Nasal Coronavir NL63 PCR NOT DETECTED Nasal Coronavir OC43 PCR NOT DETECTED Nasal Enterovir/Rhinovir PCR NOT DETECTED Nasal Influenza B PCR NOT DETECTED Nasal Influenza A PCR NOT DETECTED Nasal Parainfluen 1 PCR NOT DETECTED Nasal Parainfluen 2 PCR NOT DETECTED Nasal Parainfluen 3 PCR NOT DETECTED Nasal Parainfluen 4 PCR NOT DETECTED Nasal RSV (PCR) NOT DETECTED Nasal B.pertussis DNA PCR NOT DETECTED Nasal C.pneumoniae (PCR) NOT DETECTED Sin Human Metapneumo PCR NOT DETECTED Nasal M.pneumoniae (PCR) NOT DETECTED Nasal SARS-CoV-2 (PCR) NOT DETECTED Salicylates Urine Opiates Screen NEGATIVE Ur Oxycodone Screen NEGATIVE Urine Methadone Screen NEGATIVE Ur Propoxyphene Screen NEGATIVE Acetaminophen Ur Barbiturates Screen NEGATIVE Ur Tricyclics Screen NEGATIVE Ur Phencyclidine Scrn NEGATIVE Ur Amphetamine Screen POSITIVE H U Methamphetamines Scrn POSITIVE H U Benzodiazepines Scrn NEGATIVE Urine Cocaine Screen NEGATIVE U Cannabinoids Screen POSITIVE H Ethyl Alcohol 67.4 PD MEDICAL DECISION MAKING - ED course ED course: 30 yo male with drug/etoh abuse after SI attempt. Pt s/o to Dr Sandoval at shift chg pending DCR eval. Departure - Departure Disposition: 01 Home, Self Care Clinical Impression: Amphetamine abuse, Homeless single person Alcohol intoxication Qualifiers: Complication of substance-induced condition: uncomplicated Qualified Code(s): F10.920 - Alcohol use, unspecified with intoxication, uncomplicated Depression Qualifiers: Depression Type: reactive depression Qualified Code(s): F32.9 - Major depressive disorder, single episode, unspecified Condition: Stable Instructions: ED Stress React, ED Drug Abuse General, ED Alcohol Intoxication Follow-Up: [facility] [Provider Group] Comments: Follow up at [facility] as planned. Good luck with treatment and stay healthy. Discharge Date/Time: 04/14/21 00:07
[2021-04-13 16:56] LABS: BASOPHILS # (AUTO) 0.1 10^3/uL (0.0-0.1); BASOPHILS % (AUTO) 1.2 %; EOSINOPHILS # (AUTO) 0.2 10^3/uL (0.0-0.7); EOSINOPHILS % (AUTO) 1.9 %; HCT - HEMATOCRIT 39.4 % (42.0-52.0); HGB - HEMOGLOBIN 13.1 g/dL (14.0-18.0); LYMPHOCYTES # (AUTO) 2.5 10^3/uL (1.5-3.5); LYMPHOCYTES % (AUTO) 28.4 %; MEAN CORPUSCULAR HEMOGLOBIN 28.9 pg (27.0-31.0); MEAN CORPUSCULAR HGB CONC 33.2 g/dL (32.0-36.0); MEAN PLATELET VOLUME 9.9 fL (7.4-11.4); MONOCYTES # (AUTO) 1.1 10^3/uL (0.0-1.0); MONOCYTES % (AUTO) 12.8 %; NEUTROPHILS # (AUTO) 4.9 10^3/uL (1.5-6.6); NEUTROPHILS % (AUTO) 55.5 %; PLT - PLATELET COUNT 254 10^3/uL (130-450); RED BLOOD COUNT 4.53 10^6/uL (4.70-6.10); WHITE BLOOD COUNT 8.8 x10^3/uL (4.8-10.8)
[2021-04-13 17:03] LABS: MUDS CUTOFF CONCENTRATIONS CUTOFF CONC BELOW:
[2021-04-13 17:05] LABS: BILIRUBIN,URINE NEGATIVE (NEGATIVE); GLUCOSE, URINE (UA) NEGATIVE (NEGATIVE); KETONES,URINE (UA) NEGATIVE (NEGATIVE); LEUKOCYTE ESTERASE, URINE NEGATIVE (NEGATIVE); NITRITE,URINE NEGATIVE (NEGATIVE); OCCULT BLOOD,URINE SMALL (NEGATIVE); PROTEIN,URINE NEGATIVE (NEGATIVE); UROBILINOGEN,URINE 0.2 (NORMAL) E.U./dL (NORMAL)
[2021-04-13 17:08] LABS: CLARITY,URINE CLEAR (CLEAR)
[2021-04-13 17:12] LABS: ACETAMINOPHEN < 10 ug/mL (10-30); ALBUMIN 4.3 g/dL (3.2-5.5); ALBUMIN/GLOBULIN RATIO 1.5 (1.0-2.2); ALKALINE PHOSPHATASE 74 IU/L (42-121); ALT ALANINE AMINOTRANSFERASE 20 IU/L (10-60); AST ASPARTATE AMINOTRANSFERASE 29 IU/L (10-42); BUN - BLOOD UREA NITROGEN 22 mg/dL (6-20); CALCIUM 8.9 mg/dL (8.5-10.3); CARBON DIOXIDE - CO2 22 mmol/L (21-32); CHLORIDE 102 mmol/L (101-111); CREATININE 1.2 mg/dL (0.6-1.2); ETOH - ETHANOL 125.3 mg/dL; GFR - MDRD 71 (>89); GLUCOSE 103 mg/dL (70-100); LIPASE 27 U/L (22-51); POTASSIUM 3.5 mmol/L (3.5-5.0); SALICYLATE < 6.0 mg/dL; SODIUM 138 mmol/L (135-145); TOTAL PROTEIN 7.1 g/dL (6.7-8.2)
[2021-04-13 17:16] LABS: AMPHETAMINE SCREEN,URINE POSITIVE (NEGATIVE); BARBITURATE SCREEN,UR NEGATIVE (NEGATIVE); BENZODIAZEPINES SCREEN, URINE NEGATIVE (NEGATIVE); COCAINE SCREEN URINE NEGATIVE (NEGATIVE); METHADONE SCREEN, URINE NEGATIVE (NEGATIVE); METHAMPHETAMINES SCREEN, URINE POSITIVE (NEGATIVE); OPIATE SCREEN, URINE NEGATIVE (NEGATIVE); OXYCODONE SCREEN, URINE NEGATIVE (NEGATIVE); PROPOXYPHENE SCREEN, URINE NEGATIVE (NEGATIVE); THC CANNABINOID SCREEN, URINE POSITIVE (NEGATIVE); TRICYCLIC ANTIDEPRESSANT,URINE NEGATIVE (NEGATIVE)
[2021-04-13 17:23] LABS: BACTERIA,URINE None Seen /HPF (None Seen); RBC,URINE 0-5 /HPF (0-5); SQUAMOUS EPITHELIAL CELL,UR NONE SEEN (<= Few); WBC,URINE 0-3 /HPF (0-3)
[2021-04-13 17:52] LABS: B. PARAPERTUSSIS- RESP PCR PAN NOT DETECTED; B. PERTUSSIS- RESP PCR PANEL NOT DETECTED; C. PNEUMONIAE- RESP PCR PANEL NOT DETECTED; CORONAVIRUS 229E-RESP PCR NOT DETECTED; CORONAVIRUS HKU1-RESP PCR NOT DETECTED; CORONAVIRUS NL63-RESP PCR NOT DETECTED; CORONAVIRUS OC43-RESP PCR NOT DETECTED; HUMAN METAPNEUMOVIRUS NOT DETECTED; INFLUENZA A- RESP PCR PANEL NOT DETECTED; INFLUENZA B - RESP PCR PANEL NOT DETECTED; M. PNEUMONIAE- RESP PCR PANEL NOT DETECTED; PARAINFLUENZA VIRUS 1 NOT DETECTED; PARAINFLUENZA VIRUS 2 NOT DETECTED; PARAINFLUENZA VIRUS 3 NOT DETECTED; PARAINFLUENZA VIRUS 4 NOT DETECTED; RHINOVIRUS/ENTEROVIRUS NOT DETECTED; RSV- RESP PCR PANEL NOT DETECTED; SARS-CoV-2 -RESP PCR PANEL NOT DETECTED
--- NOTE | 2021-04-13 23:48 | ED Physician Documentation ---
ED Addendum - Addendum Addendum: 04/13/21 23:46 30-year-old homeless male has been seen by the DCR after he has attempted to hang himself. The patient is wanting to get off of the street and into treatment for meth amphetamine abuse.The DCR is made arrangements for the patient to go to [facility].
[2021-04-14 00:05] VITALS: BP 104/65
== END 2021-04-14 00:07 | disposition home or self-care (01) ==
LOC: EDUNIT# → ED 16:35
DX: F32.9 Major depressive disorder, single episode, unspecified (principal); R45.851 Suicidal ideations; F10.120 Alcohol abuse with intoxication, uncomplicated; F15.10 Other stimulant abuse, uncomplicated; Z59.0 Homelessness; F17.200 Nicotine dependence, unspecified, uncomplicated; Z20.822 Contact with and (suspected) exposure to COVID-19
CPT/HCPCS: 0202U; 36415; 80053; 80306; 80307; 80320; 80329; 81001; 83690; 84443; 85025; 93005; 99281; 99285; 81003; 87086

== ENCOUNTER 2021-05-14 13:27 | Outpatient (CLI) | payer MEDICAID | END 2021-05-14 13:28 | disposition EMS.NT | LOC: EMS 13:27 | DX: Z03.89 Encounter for observation for other suspected diseases and conditions ruled out (principal) ==

== ENCOUNTER 2022-02-21 21:03 | Outpatient (CLI) | payer MEDICAID | END 2022-02-21 21:04 | disposition critical access hospital (66) | LOC: EMS 21:03 | DX: N48.89 Other specified disorders of penis (principal); R46.89 Other symptoms and signs involving appearance and behavior | CPT/HCPCS: A0425; A0429; A0999 ==

== ENCOUNTER 2022-02-21 21:16 | Inpatient (IN) | payer MEDICAID ==
--- NOTE | 2022-02-21 21:41 | ED Physician Documentation ---
PD HPI MHE - Stated complaint Stated Complaint: MALE - Chief complaint Chief Complaint: MHE - History obtained from History obtained from: EMS, Other (patient does not provide appropriate/useful information on my attempts to obtain HPI (see narrative below)) - History of Present Illness Primary symptom: Other (odd behavior) - Additional information Additional information: MARS. EMS report that patient is c/o his penis suddenly being painful and fifteen times bigger than it usually is. On my HPI, patient is refusing to wear a gown or cover up with blankets. He is wearing only a hat and shoes. He tells me his penis is much larger than usual tonight and that he has pain. When I ask him where he has pain, he points at me and says "in your penis". I then ask him if he takes any prescription medications and he says "if you ask me that again I'm going to shoot you in your motherfjoy head". He moves his hands in the way when I try to auscultate heart sounds, and when I ask him to please move his hands to his sides, he flails his right hand at my face. He repeatedly places his hands on his penis. At this point I did not attempt further HPI/ROS or exam due to his odd and aggressive behaviors. I was able to perform a limited exam as noted below only after he was sedated. Review of Systems Unable to obtain: Uncooperative PD PAST MEDICAL HISTORY - Past Medical History Cardiovascular: None Respiratory: None Neuro: None Endocrine/Autoimmune: None GI: None : None HEENT: None Psych: None Musculoskeletal: None Derm: None - Past Surgical History Past Surgical History: No - Allergies Allergies/Adverse Reactions: Allergies Allergy/AdvReac Type Severity Reaction Status Date / Time Penicillins Allergy Edema Verified 04/13/21 16:46 cillins Allergy Edema Uncoded 04/13/21 16:46 - Social History Does the pt smoke?: Yes Smoking Status: Current every day smoker Does the pt drink ETOH?: Yes Does the pt have substance abuse?: No - Immunizations Immunizations are current?: Yes Immunizations: TDAP >10years/unknown - POLST Patient has POLST: No PD ED PE NORMAL - Vitals Vital signs reviewed: Yes - General General: Well developed/nourished, Other (hyperkinetic, odd behavior, raised voice at times, frequently touching his penis and occasionally flails his hand towards my face) - HEENT HEENT: Moist mucous membranes - Neck Neck: Supple, no meningeal sign - Cardiac Cardiac: No murmur - Respiratory Respiratory: No respiratory distress, Clear bilaterally - Abdomen Abdomen: Soft, Non distended - Derm Derm: Normal color, Warm and dry PD ED PE EXPANDED - Cardiac Cardiac: Tachy, Regular Rhythm - Male Male : Normal Exam, Circumcised, Testes descended sharee. No: Skin lesions - Psych Psych: Agitated, Manic Results - Vitals Vitals: Vital Signs - 24 hr 02/21/22 02/21/22 02/22/22 21:29 23:37 00:37 Temperature 38.6 C H 36.5 C Heart Rate 110 H 118 H 121 H Respiratory 22 16 18 Rate Blood Pressure 110/82 H 147/89 H 147/89 H O2 Saturation 96 100 02/22/22 02/22/22 01:07 01:37 Temperature Heart Rate 110 H 87 Respiratory 15 16 Rate Blood Pressure 97/73 O2 Saturation 100 100 Oxygen O2 Source Room air - EKG (time done) No standard instances Rate: Rate (enter#) (96) Rhythm: NSR [place]: Normal Intervals: Normal AR QRS: Normal Ischemia: Normal ST segments Computer interpretation: Disagree with computer (NST (not atrial fibrillation); no ST elevations) - Labs Labs: Laboratory Tests 02/21/22 02/21/22 02/21/22 22:30 22:30 22:30 WBC 12.8 H RBC 4.37 L Hgb 12.6 L Hct 39.0 L MCV 89.2 MCH 28.8 MCHC 32.3 RDW 13.4 Plt Count 269 MPV 9.8 Neut # (Auto) 7.6 H Lymph # (Auto) 3.5 Cook # (Auto) 1.4 H Eos # (Auto) 0.2 Baso # (Auto) 0.1 Absolute Nucleated RBC 0.00 Nucleated RBC % 0.0 Sodium 142 Potassium 3.9 Chloride 106 Carbon Dioxide 22 Anion Gap 14.0 H BUN 12 Creatinine 0.8 Estimated GFR (MDRD) 112 Glucose 90 Lactic Acid Calcium 9.0 Total Bilirubin 0.3 AST 35 ALT 22 Alkaline Phosphatase 87 Total Creatine Kinase 377 H CK-MB (CK-2) 5.0 Total Protein 7.2 Albumin 4.1 Globulin 3.1 Albumin/Globulin Ratio 1.3 Lipase 31 TSH Urine Color Urine Clarity Urine pH Ur Specific [place] Urine Protein Urine Glucose (UA) Urine Ketones Urine Occult Blood Urine Nitrite Urine Bilirubin Urine Urobilinogen Ur Leukocyte Esterase Urine RBC Urine WBC Ur Squamous Epith Cells Urine Bacteria Ur Microscopic Review Urine Culture Comments Nasal Adenovirus (PCR) Nasal B. parapertussis DNA (PCR) Nasal Coronavir 229E PCR Nasal Coronavir HKU1 PCR Nasal Coronavir NL63 PCR Nasal Coronavir OC43 PCR Nasal Enterovir/Rhinovir PCR Nasal Influenza B PCR Nasal Influenza A PCR Nasal Parainfluen 1 PCR Nasal Parainfluen 2 PCR Nasal Parainfluen 3 PCR Nasal Parainfluen 4 PCR Nasal RSV (PCR) Nasal B.pertussis DNA PCR Nasal C.pneumoniae (PCR) Sin Human Metapneumo PCR Nasal M.pneumoniae (PCR) Nasal SARS-CoV-2 (PCR) Salicylates < 6.0 Urine Opiates Screen Ur Oxycodone Screen Urine Methadone Screen Ur Propoxyphene Screen Acetaminophen < 10 L Ur Barbiturates Screen Ur Tricyclics Screen Ur Phencyclidine Scrn Ur Amphetamine Screen U Methamphetamines Scrn U Benzodiazepines Scrn Urine Cocaine Screen U Cannabinoids Screen Ethyl Alcohol 186.8 Chlam trachomat DNA PCR N.gonorrhoeae DNA (PCR) T. vaginalis (PCR) 02/21/22 02/21/22 02/21/22 22:30 22:30 22:30 WBC RBC Hgb Hct MCV MCH MCHC RDW Plt Count MPV Neut # (Auto) Lymph # (Auto) Cook # (Auto) Eos # (Auto) Baso # (Auto) Absolute Nucleated RBC Nucleated RBC % Sodium Potassium Chloride Carbon Dioxide Anion Gap BUN Creatinine Estimated GFR (MDRD) Glucose Lactic Acid 4.0 H* Calcium Total Bilirubin AST ALT Alkaline Phosphatase Total Creatine Kinase CK-MB (CK-2) Total Protein Albumin Globulin Albumin/Globulin Ratio Lipase TSH 0.83 Urine Color YELLOW Urine Clarity HAZY Urine pH 6.0 Ur Specific [place] <=1.005 Urine Protein NEGATIVE Urine Glucose (UA) NEGATIVE Urine Ketones NEGATIVE Urine Occult Blood SMALL H Urine Nitrite NEGATIVE Urine Bilirubin NEGATIVE Urine Urobilinogen 0.2 (NORMAL) Ur Leukocyte Esterase MODERATE H Urine RBC 0-5 Urine WBC >25 H Ur Squamous Epith Cells NONE SEEN Urine Bacteria Rare Ur Microscopic Review INDICATED Urine Culture Comments INDICATED Nasal Adenovirus (PCR) Nasal B. parapertussis DNA (PCR) Nasal Coronavir 229E PCR Nasal Coronavir HKU1 PCR Nasal Coronavir NL63 PCR Nasal Coronavir OC43 PCR Nasal Enterovir/Rhinovir PCR Nasal Influenza B PCR Nasal Influenza A PCR Nasal Parainfluen 1 PCR Nasal Parainfluen 2 PCR Nasal Parainfluen 3 PCR Nasal Parainfluen 4 PCR Nasal RSV (PCR) Nasal B.pertussis DNA PCR Nasal C.pneumoniae (PCR) Sin Human Metapneumo PCR Nasal M.pneumoniae (PCR) Nasal SARS-CoV-2 (PCR) Salicylates Urine Opiates Screen NEGATIVE Ur Oxycodone Screen NEGATIVE Urine Methadone Screen NEGATIVE Ur Propoxyphene Screen NEGATIVE Acetaminophen Ur Barbiturates Screen NEGATIVE Ur Tricyclics Screen NEGATIVE Ur Phencyclidine Scrn NEGATIVE Ur Amphetamine Screen POSITIVE H U Methamphetamines Scrn POSITIVE H U Benzodiazepines Scrn NEGATIVE Urine Cocaine Screen NEGATIVE U Cannabinoids Screen POSITIVE H Ethyl Alcohol Chlam trachomat DNA PCR N.gonorrhoeae DNA (PCR) T. vaginalis (PCR) 02/21/22 02/21/22 02/22/22 22:30 23:26 01:39 WBC RBC Hgb Hct MCV MCH MCHC RDW Plt Count MPV Neut # (Auto) Lymph # (Auto) Cook # (Auto) Eos # (Auto) Baso # (Auto) Absolute Nucleated RBC Nucleated RBC % Sodium Potassium Chloride Carbon Dioxide Anion Gap BUN Creatinine Estimated GFR (MDRD) Glucose Lactic Acid Calcium Total Bilirubin AST ALT Alkaline Phosphatase Total Creatine Kinase 467 H CK-MB (CK-2) Total Protein Albumin Globulin Albumin/Globulin Ratio Lipase TSH Urine Color Urine Clarity Urine pH Ur Specific [place] Urine Protein Urine Glucose (UA) Urine Ketones Urine Occult Blood Urine Nitrite Urine Bilirubin Urine Urobilinogen Ur Leukocyte Esterase Urine RBC Urine WBC Ur Squamous Epith Cells Urine Bacteria Ur Microscopic Review Urine Culture Comments Nasal Adenovirus (PCR) NOT DETECTED Nasal B. parapertussis DNA (PCR) NOT DETECTED Nasal Coronavir 229E PCR NOT DETECTED Nasal Coronavir HKU1 PCR NOT DETECTED Nasal Coronavir NL63 PCR NOT DETECTED Nasal Coronavir OC43 PCR NOT DETECTED Nasal Enterovir/Rhinovir PCR NOT DETECTED Nasal Influenza B PCR NOT DETECTED Nasal Influenza A PCR NOT DETECTED Nasal Parainfluen 1 PCR NOT DETECTED Nasal Parainfluen 2 PCR NOT DETECTED Nasal Parainfluen 3 PCR NOT DETECTED Nasal Parainfluen 4 PCR NOT DETECTED Nasal RSV (PCR) NOT DETECTED Nasal B.pertussis DNA PCR NOT DETECTED Nasal C.pneumoniae (PCR) NOT DETECTED Sin Human Metapneumo PCR NOT DETECTED Nasal M.pneumoniae (PCR) NOT DETECTED Nasal SARS-CoV-2 (PCR) NOT DETECTED Salicylates Urine Opiates Screen Ur Oxycodone Screen Urine Methadone Screen Ur Propoxyphene Screen Acetaminophen Ur Barbiturates Screen Ur Tricyclics Screen Ur Phencyclidine Scrn Ur Amphetamine Screen U Methamphetamines Scrn U Benzodiazepines Scrn Urine Cocaine Screen U Cannabinoids Screen Ethyl Alcohol Chlam trachomat DNA PCR NEGATIVE N.gonorrhoeae DNA (PCR) POSITIVE A T. vaginalis (PCR) TNP 02/22/22 01:39 WBC RBC Hgb Hct MCV MCH MCHC RDW Plt Count MPV Neut # (Auto) Lymph # (Auto) Cook # (Auto) Eos # (Auto) Baso # (Auto) Absolute Nucleated RBC Nucleated RBC % Sodium Potassium Chloride Carbon Dioxide Anion Gap BUN Creatinine Estimated GFR (MDRD) Glucose Lactic Acid Calcium Total Bilirubin AST ALT Alkaline Phosphatase Total Creatine Kinase CK-MB (CK-2) 6.7 H Total Protein Albumin Globulin Albumin/Globulin Ratio Lipase TSH Urine Color Urine Clarity Urine pH Ur Specific [place] Urine Protein Urine Glucose (UA) Urine Ketones Urine Occult Blood Urine Nitrite Urine Bilirubin Urine Urobilinogen Ur Leukocyte Esterase Urine RBC Urine WBC Ur Squamous Epith Cells Urine Bacteria Ur Microscopic Review Urine Culture Comments Nasal Adenovirus (PCR) Nasal B. parapertussis DNA (PCR) Nasal Coronavir 229E PCR Nasal Coronavir HKU1 PCR Nasal Coronavir NL63 PCR Nasal Coronavir OC43 PCR Nasal Enterovir/Rhinovir PCR Nasal Influenza B PCR Nasal Influenza A PCR Nasal Parainfluen 1 PCR Nasal Parainfluen 2 PCR Nasal Parainfluen 3 PCR Nasal Parainfluen 4 PCR Nasal RSV (PCR) Nasal B.pertussis DNA PCR Nasal C.pneumoniae (PCR) Sin Human Metapneumo PCR Nasal M.pneumoniae (PCR) Nasal SARS-CoV-2 (PCR) Salicylates Urine Opiates Screen Ur Oxycodone Screen Urine Methadone Screen Ur Propoxyphene Screen Acetaminophen Ur Barbiturates Screen Ur Tricyclics Screen Ur Phencyclidine Scrn Ur Amphetamine Screen U Methamphetamines Scrn U Benzodiazepines Scrn Urine Cocaine Screen U Cannabinoids Screen Ethyl Alcohol Chlam trachomat DNA PCR N.gonorrhoeae DNA (PCR) T. vaginalis (PCR) - Rads (name of study) CT A/P Radiology: Prelim report reviewed, See rad report chest xray Radiology: Prelim report reviewed, See rad report PD MEDICAL DECISION MAKING - ED course Complexity details: reviewed old records, reviewed results, re-evaluated patient, considered differential ED course: Patient has many previous [facility] ED visits for various c/o including polysubstance abuse. He presents with bizarre behavior tonight , agitated and uncooperative. He eventually required physical and chemical restraints. He is febrile and has a lactic acid level of 4.0 and UA is c/w UTI; he meets sepsis criteria. Case d/w Dr. Cortez who requests CT A/P before accepting patient. Patient required multiple doses of several different medications to achieve adequate sedation (ketamine, lorazepam, zyprexa, versed, haldol). He is given IV toradol for fever. He is given triple-antibiotic coverage using sepsis protocol for penicillin-allergic patient. CT A/P eventually was able to be performed once he was adequately sedated and there are no concerning findings. He is admitted to hospitalist service - Critical Care Time(min): 50 Time Includes: Direct patient care, Review records, Reassess patient, Document care, See progress note Data interpretation: Labs, Pulse ox, CXR, See progress note Procedures included in critical care time: See progress note Procedures excluded from critical care time: See progress note Departure - Departure Disposition: 66 [facility] DC/Xfer Clinical Impression: Methamphetamine use Sepsis Qualifiers: Sepsis type: sepsis due to unspecified organism Sepsis acute organ dysfunction status: without acute organ dysfunction Qualified Code(s): A41.9 - Sepsis, unspecified organism Alcohol intoxication Qualifiers: Complication of substance-induced condition: with delirium Qualified Code(s): F10.921 - Alcohol use, unspecified with intoxication delirium Condition: Stable Discharge Date/Time: 02/22/22 03:05 Face to Face for Restraints - Immediate Situation Face to Face Evaluation Date: 02/21/22 Face to Face Evaluation Time: 10:10 Restraint Situation: Locking, Chemical Patient's Reactions to the Intervention: Swearing, Screaming/Yelling, Crying - Behavioral Condition Attitude: Indifferent Behavior: Uncooperative, Belligerent Orientation: Not oriented to person, place, time, and situation (will not answer my questions, thus cannot ascertain level of orientation) Mood: Labile, Angry - Evaluation Review of Systems: unable to ascertain; answers my questions with bizarre answers as well as threats to harm me ("I'll shoot you in the motherfjoy head") Pertinent History/Illicit Drugs/Medications/Results: previous [facility] ED visits related to drug use (heroin, methamphetamine) - Plan Need to Continue or Terminate Violent or Chemical Restraint: Calm, cooperative as well as awake and alert enough that safety of patient, staff, and other patients can be reasonably determined according to patient's behavior and responses to basic questions
[2022-02-21] MEDS ORDERED: SODIUM CHLORIDE 0.9% 1,000 ML IV STA (21:44)
[2022-02-21] MEDS ORDERED: KETAMINE 500 MG/10 ML VIAL IM STA ×3 (21:51→22:10)
--- NOTE | 2022-02-21 21:57 | ED Physician Documentation ---
PD HPI MHE - Stated complaint Stated Complaint: MALE - Chief complaint Chief Complaint: MHE PD PAST MEDICAL HISTORY - Past Medical History Cardiovascular: None Respiratory: None Neuro: None Endocrine/Autoimmune: None GI: None : None HEENT: None Psych: None Musculoskeletal: None Derm: None - Past Surgical History Past Surgical History: No - Allergies Allergies/Adverse Reactions: Allergies Allergy/AdvReac Type Severity Reaction Status Date / Time Penicillins Allergy Edema Verified 04/13/21 16:46 cillins Allergy Edema Uncoded 04/13/21 16:46 - Social History Does the pt smoke?: Yes Smoking Status: Current every day smoker Does the pt drink ETOH?: Yes Does the pt have substance abuse?: No - Immunizations Immunizations are current?: Yes Immunizations: TDAP >10years/unknown - POLST Patient has POLST: No Results - Vitals Vitals: Vital Signs - 24 hr 02/21/22 21:29 Temperature 38.6 C H Heart Rate 110 H Respiratory 22 Rate Blood Pressure 110/82 H Oxygen O2 Source Room air
[2022-02-21] MEDS ORDERED: KETOROLAC 30 MG/ML VIAL IVP STA (22:25)
[2022-02-21] MEDS ORDERED: LORazepam 2 MG/ML VIAL IVP STA (22:26)
[2022-02-21 22:36] LABS: BASOPHILS # (AUTO) 0.1 10^3/uL (0.0-0.1); BASOPHILS % (AUTO) 0.8 %; EOSINOPHILS # (AUTO) 0.2 10^3/uL (0.0-0.7); EOSINOPHILS % (AUTO) 1.3 %; HGB - HEMOGLOBIN 12.6 g/dL (14.0-18.0); LYMPHOCYTES # (AUTO) 3.5 10^3/uL (1.5-3.5); LYMPHOCYTES % (AUTO) 27.5 %; MEAN CORPUSCULAR HEMOGLOBIN 28.8 pg (27.0-31.0); MEAN CORPUSCULAR HGB CONC 32.3 g/dL (32.0-36.0); MEAN CORPUSCULAR VOLUME 89.2 fL (80.0-94.0); MEAN PLATELET VOLUME 9.8 fL (7.4-11.4); MONOCYTES # (AUTO) 1.4 10^3/uL (0.0-1.0); NEUTROPHILS # (AUTO) 7.6 10^3/uL (1.5-6.6); NEUTROPHILS % (AUTO) 59.1 %; PLT - PLATELET COUNT 269 10^3/uL (130-450); RED BLOOD COUNT 4.37 10^6/uL (4.70-6.10); RED CELL DISTRIBUTION WIDTH 13.4 % (12.0-15.0); WHITE BLOOD COUNT 12.8 x10^3/uL (4.8-10.8)
[2022-02-21 22:37] LABS: MUDS CUTOFF CONCENTRATIONS CUTOFF CONC BELOW:
[2022-02-21 22:39] LABS: BILIRUBIN,URINE NEGATIVE (NEGATIVE); GLUCOSE, URINE (UA) NEGATIVE (NEGATIVE); KETONES,URINE (UA) NEGATIVE (NEGATIVE); LEUKOCYTE ESTERASE, URINE MODERATE (NEGATIVE); NITRITE,URINE NEGATIVE (NEGATIVE); OCCULT BLOOD,URINE SMALL (NEGATIVE); PROTEIN,URINE NEGATIVE (NEGATIVE); UROBILINOGEN,URINE 0.2 (NORMAL) E.U./dL (NORMAL)
[2022-02-21 22:50] LABS: CLARITY,URINE HAZY (CLEAR)
[2022-02-21 22:51] LABS: BACTERIA,URINE Rare /HPF (None Seen); RBC,URINE 0-5 /HPF (0-5); SQUAMOUS EPITHELIAL CELL,UR NONE SEEN (<= Few); WBC,URINE >25 /HPF (0-3)
[2022-02-21 22:53] LABS: AMPHETAMINE SCREEN,URINE POSITIVE (NEGATIVE); BARBITURATE SCREEN,UR NEGATIVE (NEGATIVE); BENZODIAZEPINES SCREEN, URINE NEGATIVE (NEGATIVE); COCAINE SCREEN URINE NEGATIVE (NEGATIVE); METHADONE SCREEN, URINE NEGATIVE (NEGATIVE); METHAMPHETAMINES SCREEN, URINE POSITIVE (NEGATIVE); OPIATE SCREEN, URINE NEGATIVE (NEGATIVE); OXYCODONE SCREEN, URINE NEGATIVE (NEGATIVE); PROPOXYPHENE SCREEN, URINE NEGATIVE (NEGATIVE); THC CANNABINOID SCREEN, URINE POSITIVE (NEGATIVE); TRICYCLIC ANTIDEPRESSANT,URINE NEGATIVE (NEGATIVE)
[2022-02-21 22:54] LABS: ACETAMINOPHEN < 10 ug/mL (10-30); ALBUMIN 4.1 g/dL (3.2-5.5); ALBUMIN/GLOBULIN RATIO 1.3 (1.0-2.2); ALKALINE PHOSPHATASE 87 IU/L (42-121); ALT ALANINE AMINOTRANSFERASE 22 IU/L (10-60); AST ASPARTATE AMINOTRANSFERASE 35 IU/L (10-42); BILIRUBIN,TOTAL 0.3 mg/dL (0.2-1.0); BUN - BLOOD UREA NITROGEN 12 mg/dL (6-20); CARBON DIOXIDE - CO2 22 mmol/L (21-32); CHLORIDE 106 mmol/L (101-111); CK- CREATINE KINASE 377 IU/L (22-269); CREATININE 0.8 mg/dL (0.6-1.2); ETOH - ETHANOL 186.8 mg/dL; GFR - MDRD 112 (>89); GLUCOSE 90 mg/dL (70-100); LIPASE 31 U/L (22-51); POTASSIUM 3.9 mmol/L (3.5-5.0); SALICYLATE < 6.0 mg/dL; SODIUM 142 mmol/L (135-145); TOTAL PROTEIN 7.2 g/dL (6.7-8.2)
[2022-02-21] MEDS ORDERED: OLANZapine 10 MG VIAL IM STA (23:07)
[2022-02-21] MEDS ORDERED: metroNIDAZOLE 500 MG/100 ML 500 MG/100 ML BAG IV STA (23:36)
[2022-02-21] MEDS ORDERED: VANCOMYCIN INJ 1 GM in SODIUM CHLORIDE 0.9% 250 ML IV STA (23:36)
[2022-02-21] MEDS ORDERED: AZTREONAM 2 GM in SODIUM CHLORIDE 0.9% MINIBAG 100 ML IV STA (23:36)
[2022-02-22] MEDS ORDERED: IOVERSOL 320 100 ML VIAL IVP ONE ×2 (00:03→03:22)
--- NOTE | 2022-02-22 00:04 | XRAY Report ---
PROCEDURE: Chest 1 View X-Ray INDICATIONS: fever TECHNIQUE: One view of the chest was acquired. COMPARISON: CT chest 05/31/2017. FINDINGS: Surgical changes and devices: None. Lungs and pleura: There is an indistinct right basilar nodular opacity measuring approximately 2.9 c m. No pleural effusions or pneumothorax. . Mediastinum: Mediastinal contours appear normal. Heart size is normal. Bones and chest wall: No suspicious bony lesions. Overlying soft tissues appear unremarkable. IMPRESSION: 1. Indistinct right basilar nodular opacity is nonspecific but may reflect masslike consolidation and pneumonia given clinical history. Consider a short-term follow-up to demonstrate resolution. Reviewed by: Rishabh Foreman MD on 02/22/2022 12:06 AM PDT Approved by: Rishabh Foreman MD on 02/22/2022 12:06 AM PDT Station ID: [id number]
[2022-02-22] MEDS ORDERED: LORazepam 2 MG/ML VIAL IVP STA ×2 (00:08→01:21)
[2022-02-22] MEDS ORDERED: MIDAZOLAM 10 MG/2 ML VIAL IVP STA (00:22)
[2022-02-22] MEDS ORDERED: SODIUM CHLORIDE 0.9% 1,000 ML IV STA (00:30)
[2022-02-22 00:48] LABS: B. PARAPERTUSSIS- RESP PCR PAN NOT DETECTED; B. PERTUSSIS- RESP PCR PANEL NOT DETECTED; C. PNEUMONIAE- RESP PCR PANEL NOT DETECTED; CORONAVIRUS 229E-RESP PCR NOT DETECTED; CORONAVIRUS HKU1-RESP PCR NOT DETECTED; CORONAVIRUS NL63-RESP PCR NOT DETECTED; CORONAVIRUS OC43-RESP PCR NOT DETECTED; HUMAN METAPNEUMOVIRUS NOT DETECTED; INFLUENZA A- RESP PCR PANEL NOT DETECTED; INFLUENZA B - RESP PCR PANEL NOT DETECTED; M. PNEUMONIAE- RESP PCR PANEL NOT DETECTED; PARAINFLUENZA VIRUS 1 NOT DETECTED; PARAINFLUENZA VIRUS 2 NOT DETECTED; PARAINFLUENZA VIRUS 3 NOT DETECTED; PARAINFLUENZA VIRUS 4 NOT DETECTED; RHINOVIRUS/ENTEROVIRUS NOT DETECTED; RSV- RESP PCR PANEL NOT DETECTED; SARS-CoV-2 -RESP PCR PANEL NOT DETECTED
[2022-02-22] MEDS ORDERED: VANCOMYCIN 1 GM VIAL ONE (00:48)
[2022-02-22] MEDS ORDERED: HALOPERIDOL 5 MG/ML VIAL IM STA (01:20)
[2022-02-22 01:59] LABS: CHLAMYDIA TRACHOMATIS DNA NEGATIVE (NEGATIVE)
[2022-02-22 02:13] LABS: NEISSERIA GONORRHOEAE DNA POSITIVE (NEGATIVE)
[2022-02-22] MEDS ORDERED: ACETAMINOPHEN 325 MG TABLET PO PRN (02:19)
[2022-02-22] MEDS ORDERED: ONDANSETRON 4 MG/2 ML VIAL IVP PRN (02:19)
--- NOTE | 2022-02-22 02:47 | HISTORY & PHYSICAL EXAMINATION ---
Chief Complaint - Chief Complaint Chief Complaint: problem with genitals History of Present Illness - Admitted From Admitted From:: [facility] ED - History Obtained From Records Reviewed: yes History obtained from: ED provider and EMS notes Exam Limitations: belligerent, intoxicated, altered mental status - History of Present Illness HPI Comment/Other: Patient is a 31-year-old male with unknown medical history at this time due to altered mental status. He was brought in by EMS after he had been exhibiting odd behavior. It was reported that he was exposing himself. When the medics arrived where he was he complained of his penis being 10- 15X its size. Medics report not noticing anything abnormal on examination In the ED he was very belligerent and threatening to hurt staff. At the same time what he was saying was nonsensical. It is reported that he continued to grab at his penis and testicles and pulling at his pubic hair aggressively. e was also noted to flick discharge from the tip of his penis. He required several doses of lorazepam, couple doses of ketamine and a dose of Zyprexa to attain some level of calmness. He was also put in four-point restraints. Objectively he appeared very disheveled and was still thrashing around at the time of exam. There was no redness, sores or discharge noted on or around the genitals. He was also tachycardic into the 120's and febrile with a temp of 38.6 degree celsius. Work up included a CBC which showed a WBC of 12.8. Urinalysis was indicative of a UTI. He also had a lactic acid of 4 and CK of 377. Serology for gonorrhea came back positive. His toxicology was also positive for methamphetamine and cannabinoids. CT abdomen/ pelvis was negative for any acute process. He was presented for admission for further treatment. History - Past Medical History Cardiovascular: reports: None Respiratory: reports: None Neuro: reports: None Endocrine/Autoimmune: reports: None GI: reports: None : reports: None HEENT: reports: None Psych: reports: None Musculoskeletal: reports: None Derm: reports: None MRSA Hx?: No Other Past Medical History: Past medical, surgical, family and social history is currently limited because the patient is intoxicated, altered and unable to provide a history. - POLST Patient has POLST: No POLST Status: Full Code Meds/Allgy - Allergies Allergies/Adverse Reactions: Allergies Allergy/AdvReac Type Severity Reaction Status Date / Time Penicillins Allergy Edema Verified 04/13/21 16:46 cillins Allergy Edema Uncoded 04/13/21 16:46 Review of Systems - Other Findings Other Findings: A 12 point review of system is currently limited because the patient is altered and unable to provide reliable history. Prior Level of Functionality: Patient is currently altered and unable to provide history. Exam - Vital Signs Vital Signs: Vital Signs x48h Temp Pulse Resp BP Pulse Ox 02/22/22 02:30 35.8 C L 103 H 128/84 H 02/22/22 01:37 87 16 97/73 100 02/22/22 01:07 110 H 15 100 02/22/22 00:37 121 H 18 147/89 H 100 02/21/22 23:37 36.5 C 118 H 16 147/89 H 96 02/21/22 21:29 38.6 C H 110 H 22 110/82 H - Physical Exam General Appearance: positive: No acute distress, Other (Disheveled, belligerent, agitated altered) Eyes Bilateral: positive: PERRL, EOMI ENT: positive: Dry mucous membranes Neck: positive: No JVD, Trachea midline Respiratory: positive: Chest non-tender, No respiratory distress, Breath sounds nml. negative: Wheezes, Rales, Rhonchi Cardiovascular: positive: Tachycardia Abdomen: positive: Non-tender, No organomegaly, Nml bowel sounds, No distention. negative: Guarding, Rebound Skin: positive: Other (small scabs on face) Extremities: positive: Non-tender, Full ROM, No pedal edema Neurologic/Psychiatric: positive: Disoriented to person, Disoriented to place, Disoriented to time, Other (belligerent) Sepsis Event Note (H) - Evaluation Current Stage of Sepsis: Sepsis Possible source of Sepsis: positive: Genitourinary - Sepsis Criteria Sepsis Criteria: Recorded Temperature greater than 38.3C or Less than 36C, Recorded Heart Rate greater than 90 bpm, WBC count greater than 12,000 or less than 4000, TRADE ECONOMIST: altered consciousness (unrelated to primary neuro pathology), Metabolic: lactate > 2 mmol/L Conclusion/Plan - Problem List (1) Sepsis Conclusion/Plan: Suspect secondary to gonococcal urethritis. Patient had a WBC of 12.8, temperature 38.6 C, lactic acid 4, heart rate 120s. Serology was positive for gonococcus. IV hydration with normal saline was initiated. An initial 2L bolus was given in the ED, then continued at 150ml/hr Patient was initially administered vancomycin, aztreonam and Flagyl after urine and blood cultures had been drawn. Antibiotics changed to vancomycin and Rocephin IV. Qualifiers: Sepsis type: sepsis due to unspecified organism Sepsis acute organ dysfunction status: without acute organ dysfunction Qualified Code(s): A41.9 - Sepsis, unspecified organism (2) Gonococcal urethritis in male Conclusion/Plan: Serology was positive for gonococcus. IV hydration with normal saline was initiated. An initial 2L bolus was given in the ED, then continued at 150ml/hr Patient was initially administered vancomycin, aztreonam and Flagyl after urine and blood cultures had been drawn. Antibiotics changed to vancomycin and Rocephin IV. Test for other STI's to include HIV, Hepatitis and Syphilis ordered. Patient was negative for chlamydia. (3) Methamphetamine use Conclusion/Plan: IV hydration with normal saline at 150ml/hr Haldol q6hrs prn for agitation (4) Altered mental state Conclusion/Plan: Likely 2/2 to methamphetamine use. IV hydration. Allow time for drug to clear from system. (5) Lactic acidosis Conclusion/Plan: Likely 2/2 infection and methamphetamine use (more likely) Lactic acid was 4. With adequate hydration, lactic acid improved to 1.1 - Lab Results Fish Bones: 02/22/22 04:29 02/22/22 04:29 Core Measures - Anticipated LOS I expect patient to be DC'd or transferred within 96 hours.: Yes - DVT/VTE - Prophylaxis VTE/DVT Device ordered at admit?: Yes
[2022-02-22] MEDS: HALOPERIDOL 5 MG/ML VIAL IVP PRN ×4 (03:00→23:23)
[2022-02-22] MEDS ORDERED: HALOPERIDOL 5 MG/ML VIAL ONE (03:18)
[2022-02-22] MEDS: SODIUM CHLORIDE 0.9% 1,000 ML IV SCH ×4 (03:32→23:22)
[2022-02-22] MEDS: SODIUM CHLORIDE FLUSH 0.9% 10 ML SYRINGE IVP PRN ×2 (03:33→23:24)
[2022-02-22] MEDS ORDERED: AZTREONAM 2 GM in SODIUM CHLORIDE 0.9% MINIBAG 100 ML IV SCH (06:00)
[2022-02-22 06:02] LABS: BASOPHILS # (AUTO) 0.1 10^3/uL (0.0-0.1); EOSINOPHILS # (AUTO) 0.1 10^3/uL (0.0-0.7); EOSINOPHILS % (AUTO) 1.5 %; HCT - HEMATOCRIT 35.3 % (42.0-52.0); HGB - HEMOGLOBIN 11.5 g/dL (14.0-18.0); LYMPHOCYTES # (AUTO) 1.9 10^3/uL (1.5-3.5); LYMPHOCYTES % (AUTO) 26.1 %; MEAN CORPUSCULAR HEMOGLOBIN 29.1 pg (27.0-31.0); MEAN CORPUSCULAR HGB CONC 32.6 g/dL (32.0-36.0); MEAN CORPUSCULAR VOLUME 89.4 fL (80.0-94.0); MEAN PLATELET VOLUME 10.3 fL (7.4-11.4); MONOCYTES # (AUTO) 0.8 10^3/uL (0.0-1.0); MONOCYTES % (AUTO) 11.5 %; NEUTROPHILS # (AUTO) 4.3 10^3/uL (1.5-6.6); NEUTROPHILS % (AUTO) 59.6 %; PLT - PLATELET COUNT 228 10^3/uL (130-450); RED BLOOD COUNT 3.95 10^6/uL (4.70-6.10); RED CELL DISTRIBUTION WIDTH 13.5 % (12.0-15.0); WHITE BLOOD COUNT 7.1 x10^3/uL (4.8-10.8)
[2022-02-22 06:11] LABS: CALCIUM 7.9 mg/dL (8.5-10.3); CREATININE 0.6 mg/dL (0.6-1.2); POTASSIUM 3.6 mmol/L (3.5-5.0)
[2022-02-22 06:43] LABS: MAGNESIUM 2.3 mg/dL (1.7-2.8); PHOSPHORUS 2.3 mg/dL (2.5-4.6)
[2022-02-22] MEDS ORDERED: POTASSIUM CHLOR 10 MEQ/100 ML 10 MEQ/100 ML BAG IV SCH (07:00)
--- NOTE | 2022-02-22 07:26 | CT Report ---
PROCEDURE: Abdomen/Pelvis W INDICATIONS: fever, UTI, unreliable exam/historian CONTRAST: IV CONTRAST: Optiray 320 ml: 100 PO CONTRAST: *NO PO CONTRAST TECHNIQUE: After the administration of intravenous contrast, 5 mm thick sections acquired from the diaphragms to the symphysis. 5 mm thick coronal and sagittal reformats were acquired. For radiation dose reducti on, the following was used: automated exposure control, adjustment of mA and/or kV according to jeannie ent size. COMPARISON: None. FINDINGS: Image quality: Excellent. ABDOMEN: Lung bases: Lung bases are clear. 3 mm pulmonary nodule, right middle lobe, image 4 of series 6. Hea rt size is normal. Solid organs: Liver and spleen are normal in size and enhancement. Gallbladder is unremarkable. Bi liary system is non dilated. Pancreas enhances normally. No adrenal nodules. Kidneys demonstrate n ormal size and enhancement, without hydronephrosis. Peritoneum and bowel: Bowel loops demonstrate normal wall thickness and caliber. No free fluid or a ir. Nodes and vessels: No retroperitoneal or mesenteric adenopathy by size criteria. Aorta and inferior vena cava are normal in size. Miscellaneous: No ventral hernias. PELVIS: Genitourinary: A Merino catheter is present in the bladder, which is decompressed. Miscellaneous: No inguinal hernias or adenopathy. Bones: No suspicious bony lesions. No vertebral body compression fractures. IMPRESSION: 1. No evidence of acute abdominal process. 2. Incidental 3 mm pulmonary nodule, right middle lobe. Findings are concordant with preliminary interpretation provided by [facility]. Reviewed by: Jamie Booker MD on 02/22/2022 7:25 AM PDT Approved by: Jamie Booker MD on 02/22/2022 7:25 AM PDT Station ID: [id number]
[2022-02-22 07:29] LABS: CALCIUM, IONIZED 1.06 mmol/L (1.15-1.33); VBG PH 7.416 (7.31-7.41)
[2022-02-22] MEDS ORDERED: metroNIDAZOLE 500 MG/100 ML 500 MG/100 ML BAG IV SCH (08:00)
[2022-02-22] MEDS ORDERED: POTASSIUM PHOSPHATE 15 MMOL in SODIUM CHLORIDE 0.9% 250 ML IV ONE (08:00)
[2022-02-22] MEDS ORDERED: CALCIUM GLUC 1,000MG/50ML-NACL 1,000 MG/50 ML BAG IV ONE ×2 (08:23→10:00)
[2022-02-22] MEDS: SODIUM CHLORIDE FLUSH 0.9% 10 ML SYRINGE IVP SCH ×3 (08:52→23:24)
[2022-02-22] MEDS ORDERED: cefTRIAXone 1 GM VIAL ONE (08:53)
[2022-02-22] MEDS: cefTRIAXone 1 GM in SODIUM CHLORIDE 0.9% MINIBAG 100 ML IV SCH (10:24)
[2022-02-22] MEDS: VANCOMYCIN INJ 1 GM in SODIUM CHLORIDE 0.9% 250 ML IV SCH ×2 (13:01→20:29)
[2022-02-22 14:13] LABS: CALCIUM, IONIZED 1.11 mmol/L (1.15-1.33); VBG PH 7.392 (7.31-7.41)
[2022-02-22 14:22] LABS: POTASSIUM 3.9 mmol/L (3.5-5.0)
[2022-02-23] MEDS: DEXTROSE 5%-0.45% NACL 1,000 ML IV SCH ×2 (04:54→12:32)
[2022-02-23] MEDS: VANCOMYCIN INJ 1 GM in SODIUM CHLORIDE 0.9% 250 ML IV SCH (04:55)
[2022-02-23 05:01] LABS: BASOPHILS # (AUTO) 0.1 10^3/uL (0.0-0.1); BASOPHILS % (AUTO) 0.9 %; EOSINOPHILS # (AUTO) 0.2 10^3/uL (0.0-0.7); HCT - HEMATOCRIT 34.3 % (42.0-52.0); HGB - HEMOGLOBIN 10.9 g/dL (14.0-18.0); LYMPHOCYTES # (AUTO) 1.9 10^3/uL (1.5-3.5); LYMPHOCYTES % (AUTO) 21.6 %; MEAN CORPUSCULAR HEMOGLOBIN 28.9 pg (27.0-31.0); MEAN CORPUSCULAR HGB CONC 31.8 g/dL (32.0-36.0); MEAN PLATELET VOLUME 9.8 fL (7.4-11.4); MONOCYTES # (AUTO) 0.9 10^3/uL (0.0-1.0); MONOCYTES % (AUTO) 10.4 %; NEUTROPHILS # (AUTO) 5.6 10^3/uL (1.5-6.6); NEUTROPHILS % (AUTO) 64.9 %; PLT - PLATELET COUNT 209 10^3/uL (130-450); RED BLOOD COUNT 3.77 10^6/uL (4.70-6.10); RED CELL DISTRIBUTION WIDTH 13.5 % (12.0-15.0); WHITE BLOOD COUNT 8.6 x10^3/uL (4.8-10.8)
[2022-02-23 05:04] LABS: CALCIUM, IONIZED 1.12 mmol/L (1.15-1.33); VBG PH 7.413 (7.31-7.41)
[2022-02-23 05:14] LABS: MAGNESIUM 1.8 mg/dL (1.7-2.8); PHOSPHORUS 2.4 mg/dL (2.5-4.6)
[2022-02-23 05:46] LABS: CALCIUM 8.3 mg/dL (8.5-10.3); CREATININE 0.7 mg/dL (0.6-1.2); POTASSIUM 3.7 mmol/L (3.5-5.0)
--- NOTE | 2022-02-23 06:06 | PROVIDER PROGRESS NOTE ---
Assessment/Plan - Problem List (1) Sepsis Qualifiers: Sepsis type: sepsis due to unspecified organism Sepsis acute organ dysfunction status: without acute organ dysfunction Qualified Code(s): A41.9 - Sepsis, unspecified organism Assessment/Plan: Resolved WBC 8.6. Lactic acid 1.0 Patient normotensive and afebrile On rocephin 1g IV (2) Gonococcal urethritis in male Assessment/Plan: WBC 8.6. Lactic acid 1.0 Patient normotensive and afebrile On rocephin 1g IV. Vancomycin discontinued. Test for other STI's to include HIV, Hepatitis and Syphilis pending. Patient was negative for chlamydia. (3) Methamphetamine use Assessment/Plan: IV hydration with D5+1/2NS at 125ml/hr Haldol q6hrs prn for agitation. Patient very somnolent. Likely withdrawal from methamphetamine use (4) Altered mental state Assessment/Plan: Likely 2/2 to methamphetamine use. IV hydration. Allow time for drug to clear from system. No longer belligerent but very somnolent (5) Lactic acidosis Assessment/Plan: Resolved - Current Meds Current Meds: Current Medications Generic Name Dose Route Start Last Admin Trade Name Freq PRN Reason Stop Dose Admin Haloperidol 4 mg 02/22/22 06:00 02/22/22 23:23 Haloperidol 5 Mg/Ml Vial IVP 4 mg Q6H PRN Administration Agitation Ceftriaxone Sodium 1 gm/ 100 mls @ 200 mls/hr 02/22/22 09:00 02/22/22 11:00 Sodium Chloride IV Infused DAILY SHARI Infusion Vancomycin HCl 1 gm/ Sodium 250 mls @ 167 mls/hr 02/22/22 13:00 02/23/22 04:5 5 Chloride IV 167 mls/hr Q8H SHARI Administration Dextrose/Sodium Chloride 1,000 mls @ 125 mls/hr 02/23/22 03:00 02/23/22 05:23 D5.45ns IV 0 mls/hr .Q8H SHARI Infusion Sodium Chloride 10 ml 02/22/22 09:00 02/22/22 23:24 Sodium Chloride Flush 0.9% 10 Ml Syringe IVP 10 ml 0100,0900,1700 SHARI Administration Sodium Chloride 10 ml 02/22/22 02:19 02/22/22 23:24 Sodium Chloride Flush 0.9% 10 Ml Syringe IVP 10 ml PRN PRN Administration NEEDED PER PROVIDER ORDERS - Lab Result Fish Bone Diagrams: 02/23/22 04:39 02/23/22 04:39 - Additional Planning My Orders: My Active Orders 02/22/22 06:00 Haloperidol Inj [Haldol Inj] 4 mg IVP Q6H PRN 02/22/22 09:00 Sodium Chloride Flush 0.9% [Normal Saline Flush 0.9%] 10 ml IVP 0100,0900,1700 cefTRIAXone [Rocephin] 1 gm Sodium Chloride 0.9% Minibag [Normal Saline 0.9% Minibag] 100 ml IV DAILY 02/22/22 13:00 Vancomycin Inj [Vancomycin] 1 gm Sodium Chloride 0.9% [Normal Saline 0.9%] 250 ml IV Q8H 02/23/22 02:15 NonViolent Restraint(s) Q24H 02/23/22 03:00 Dextrose 5%-0.45% NaCl [D5.45ns] 1,000 ml IV 125 mls/hr 02/24/22 05:00 BMP - BASIC METABOLIC PANEL [CHEM] DAILYLAB CBC - COMP BLD CT W/AUTO DIFF [HEME] DAILYLAB CREATINE KINASE MB [IAI] DAILYLAB 02/25/22 05:00 BMP - BASIC METABOLIC PANEL [CHEM] DAILYLAB CBC - COMP BLD CT W/AUTO DIFF [HEME] DAILYLAB CREATINE KINASE MB [IAI] DAILYLAB 02/26/22 05:00 BMP - BASIC METABOLIC PANEL [CHEM] DAILYLAB CBC - COMP BLD CT W/AUTO DIFF [HEME] DAILYLAB CREATINE KINASE MB [IAI] DAILYLAB Subjective - Subjective Patient Reports: Other (Patient continues to be somnolent. He arouses to verbal stimuli but readily fall back to sleep. This limits interaction) Objective Vital Signs: Vital Signs - 24 hr 02/22/22 02/22/22 02/22/22 07:00 08:00 09:00 Temperature 37.1 C Heart Rate [ 90 99 72 Brachial] Respiratory 17 22 18 Rate Blood Pressure 128/70 137/72 H 139/77 H [Right Ankle] O2 Saturation 99 100 100 02/22/22 02/22/22 02/22/22 10:00 11:00 12:00 Temperature 37 C Heart Rate [ 96 79 89 Brachial] Respiratory 18 16 20 Rate Blood Pressure 119/71 133/73 H 126/65 [Right Ankle] O2 Saturation 99 100 99 02/22/22 02/22/22 02/22/22 12:57 12:58 14:00 Temperature Heart Rate [ 93 72 Brachial] Respiratory 22 17 Rate Blood Pressure 122/76 133/74 H [Right Ankle] O2 Saturation 99 98 02/22/22 02/22/22 02/22/22 15:00 16:00 17:00 Temperature 36.6 C Heart Rate [ 84 70 81 Brachial] Respiratory 20 17 20 Rate Blood Pressure 114/70 127/77 120/68 [Right Ankle] O2 Saturation 99 100 99 02/22/22 02/22/22 02/22/22 18:00 18:51 20:00 Temperature 36.7 C Heart Rate [ 70 62 71 Brachial] Respiratory 16 17 16 Rate Blood Pressure 113/77 120/76 136/76 H [Right Ankle] O2 Saturation 100 98 98 02/22/22 02/22/22 02/22/22 21:00 22:00 23:00 Temperature Heart Rate [ 84 70 65 Brachial] Respiratory 18 16 16 Rate Blood Pressure 128/77 128/75 133/77 H [Right Ankle] O2 Saturation 97 98 99 02/23/22 02/23/22 02/23/22 00:00 01:00 02:00 Temperature 36.8 C Heart Rate [ 67 68 63 Brachial] Respiratory 15 15 15 Rate Blood Pressure 127/70 120/76 137/75 H [Right Ankle] O2 Saturation 98 98 98 02/23/22 02/23/22 02/23/22 03:00 04:00 05:00 Temperature Heart Rate [ 71 78 59 L Brachial] Respiratory 15 16 12 Rate Blood Pressure 114/73 122/72 111/85 H [Right Ankle] O2 Saturation 98 99 98 Oxygen O2 Source Room air I&O (Last 24 Hrs): Intake and Output Totals x24h 02/21/22 02/22/22 02/23/22 23:59 23:59 23:59 Intake Total 999 5392.5 955.417 Output Total 4410 295 Balance 999 982.5 660.417 General: No acute distress, Other (somnolent. not oriented to place or time) HEENT: PERRLA, EOMI Neck: Supple, No JVD Neuro: Non Focal Cardiovascular: Regular rate, Normal S1, Normal S2 Respiratory: Chest non-tender, No respiratory distress, Breath sounds nml Abdomen: Normal bowel sounds, Soft Extremities: No clubbing, No cyanosis, No edema, No tenderness/swelling Skin: No rashes, No breakdown - Results Results: Laboratory Results WBC 8.6 x10^3/uL (4.8-10.8) 02/23/22 04:39 RBC 3.77 10^6/uL (4.70-6.10) L 02/23/22 04:39 Hgb 10.9 g/dL (14.0-18.0) L 02/23/22 04:39 Hct 34.3 % (42.0-52.0) L 02/23/22 04:39 MCV 91.0 fL (80.0-94.0) 02/23/22 04:39 MCH 28.9 pg (27.0-31.0) 02/23/22 04:39 MCHC 31.8 g/dL (32.0-36.0) L 02/23/22 04:39 RDW 13.5 % (12.0-15.0) 02/23/22 04:39 Plt Count 209 10^3/uL (130-450) 02/23/22 04:39 MPV 9.8 fL (7.4-11.4) 02/23/22 04:39 Neut # (Auto) 5.6 10^3/uL (1.5-6.6) 02/23/22 04:39 Lymph # (Auto) 1.9 10^3/uL (1.5-3.5) 02/23/22 04:39 [place] # (Auto) 0.9 10^3/uL (0.0-1.0) 02/23/22 04:39 Eos # (Auto) 0.2 10^3/uL (0.0-0.7) 02/23/22 04:39 Baso # (Auto) 0.1 10^3/uL (0.0-0.1) 02/23/22 04:39 Absolute Nucleated RBC 0.00 x10^3/uL 02/23/22 04:39 Nucleated RBC % 0.0 /100WBC 02/23/22 04:39 VBG pH 7.413 (7.31-7.41) H 02/23/22 04:39 Ionized Calcium 1.12 mmol/L (1.15-1.33) L 02/23/22 04:39 Sodium 141 mmol/L (135-145) 02/23/22 04:39 Potassium 3.7 mmol/L (3.5-5.0) 02/23/22 04:39 Chloride 110 mmol/L (101-111) 02/23/22 04:39 Carbon Dioxide 26 mmol/L (21-32) 02/23/22 04:39 Anion Gap 5.0 (6-13) L 02/23/22 04:39 BUN 6 mg/dL (6-20) 02/23/22 04:39 Creatinine 0.7 mg/dL (0.6-1.2) 02/23/22 04:39 Estimated GFR (MDRD) 131 (>89) 02/23/22 04:39 Glucose 88 mg/dL (70-100) 02/23/22 04:39 Lactic Acid 1.0 mmol/L (0.5-2.2) 02/22/22 10:55 Calcium 8.3 mg/dL (8.5-10.3) L 02/23/22 04:39 Phosphorus 2.4 mg/dL (2.5-4.6) L 02/23/22 04:39 Magnesium 1.8 mg/dL (1.7-2.8) 02/23/22 04:39 Total Bilirubin 0.3 mg/dL (0.2-1.0) 02/21/22 22:30 AST 35 IU/L (10-42) 02/21/22 22:30 ALT 22 IU/L (10-60) 02/21/22 22:30 Alkaline Phosphatase 87 IU/L (42-121) 02/21/22 22:30 Total Creatine Kinase 467 IU/L (22-269) H 02/22/22 01:39 CK-MB (CK-2) 4.6 ng/mL (0.6-6.3) 02/23/22 04:39 Total Protein 7.2 g/dL (6.7-8.2) 02/21/22 22:30 Albumin 4.1 g/dL (3.2-5.5) 02/21/22 22:30 Globulin 3.1 g/dL (2.1-4.2) 02/21/22 22:30 Albumin/Globulin Ratio 1.3 (1.0-2.2) 02/21/22 22:30 Lipase 31 U/L (22-51) 02/21/22 22:30 TSH 0.83 uIU/mL (0.34-5.60) 02/21/22 22:30 Urine Color YELLOW 02/21/22 22: Urine Clarity HAZY (CLEAR) 02/21/22 22: Urine pH 6.0 PH (5.0-7.5) 02/21/22 22: Ur Specific [place] <=1.005 (1.002-1.030) 02/21/22: Urine Protein NEGATIVE mg/dL (NEGATIVE) 02/21/22: Urine Glucose (UA) NEGATIVE mg/dL (NEGATIVE) 02/21/22: Urine Ketones NEGATIVE mg/dL (NEGATIVE) 02/21/22 22: Urine Occult Blood SMALL (NEGATIVE) H 02/21/22: Urine Nitrite NEGATIVE (NEGATIVE) 02/21/22 22: Urine Bilirubin NEGATIVE (NEGATIVE) 02/21/22 22: Urine Urobilinogen 0.2 (NORMAL) E.U./dL (NORMAL) 02/21/22 22:30 Ur Leukocyte Esterase MODERATE (NEGATIVE) H 02/21/22 22:30 Urine RBC 0-5 /HPF (0-5) 02/21/22 22:30 Urine WBC >25 /HPF (0-3) H 02/21/22 22:30 Ur Squamous Epith Cells NONE SEEN (<= Few) 02/21/22 22: Urine Bacteria Rare /HPF (None Seen) 02/21/22 22:30 Ur Microscopic Review INDICATED 02/21/22 22:30 Urine Culture Comments INDICATED 02/21/22 22: Nasal Adenovirus (PCR) NOT DETECTED 02/21/22 23: Nasal B. parapertussis DNA (PCR) NOT DETECTED 02/21/22 23: Nasal Coronavir 229E PCR NOT DETECTED 02/21/22 23: Nasal Coronavir HKU1 PCR NOT DETECTED 02/21/22 23: Nasal Coronavir NL63 PCR NOT DETECTED 02/21/22 23: Nasal Coronavir OC43 PCR NOT DETECTED 02/21/22 23:26 Nasal Enterovir/Rhinovir PCR NOT DETECTED 02/21/22 23:26 Nasal Influenza B PCR NOT DETECTED 02/21/22 23:26 Nasal Influenza A PCR NOT DETECTED 02/21/22 23:26 Nasal Parainfluen 1 PCR NOT DETECTED 02/21/22 23:26 Nasal Parainfluen 2 PCR NOT DETECTED 02/21/22 23:26 Nasal Parainfluen 3 PCR NOT DETECTED 02/21/22 23:26 Nasal Parainfluen 4 PCR NOT DETECTED 02/21/22 23:26 Nasal RSV (PCR) NOT DETECTED 02/21/22 23:26 Nasal Screen MRSA (PCR) NEGATIVE (NEGATIVE) 02/22/22 03:20 Nasal B.pertussis DNA PCR NOT DETECTED 02/21/22 23:26 Nasal C.pneumoniae (PCR) NOT DETECTED 02/21/22 23:26 Sin Human Metapneumo PCR NOT DETECTED 02/21/22 23:26 Nasal M.pneumoniae (PCR) NOT DETECTED 02/21/22 23:26 Nasal SARS-CoV-2 (PCR) NOT DETECTED 02/21/22 23:26 Salicylates < 6.0 mg/dL 02/21/22 22:30 Urine Opiates Screen NEGATIVE (NEGATIVE) 02/21/22 22:30 Ur Oxycodone Screen NEGATIVE (NEGATIVE) 02/21/22 22:30 Urine Methadone Screen NEGATIVE (NEGATIVE) 02/21/22 22:30 Ur Propoxyphene Screen NEGATIVE (NEGATIVE) 02/21/22 22:30 Acetaminophen < 10 ug/mL (10-30) L 02/21/22 22:30 Ur Barbiturates Screen NEGATIVE (NEGATIVE) 02/21/22 22:30 Ur Tricyclics Screen NEGATIVE (NEGATIVE) 02/21/22 22:30 Ur Phencyclidine Scrn NEGATIVE (NEGATIVE) 02/21/22 22:30 Ur Amphetamine Screen POSITIVE (NEGATIVE) H 02/21/22 22:30 U Methamphetamines Scrn POSITIVE (NEGATIVE) H 02/21/22 22:30 U Benzodiazepines Scrn NEGATIVE (NEGATIVE) 02/21/22 22:30 Urine Cocaine Screen NEGATIVE (NEGATIVE) 02/21/22 22:30 U Cannabinoids Screen POSITIVE (NEGATIVE) H 02/21/22 22:30 Ethyl Alcohol 186.8 mg/dL 02/21/22 22:30 Chlam trachomat DNA PCR NEGATIVE (NEGATIVE) 05/20/22 22:30 N.gonorrhoeae DNA (PCR) POSITIVE (NEGATIVE) A 02/21/22 22:30 T. vaginalis (PCR) TNP 02/21/22 22:30 Sepsis Event Note (H) - Evaluation Current Stage of Sepsis: Sepsis Possible source of Sepsis: positive: Genitourinary - Sepsis Criteria Sepsis Criteria: Recorded Temperature greater than 38.3C or Less than 36C, Recorded Heart Rate greater than 90 bpm, WBC count greater than 12,000 or less than 4000, MIL[employer] T[employer] TRUCK: altered consciousness (unrelated to primary neuro pathology), Metabolic: lactate > 2 mmol/L ABX Reporting Has patient been on IV antibiotics over the past 48 hours?: Yes
[2022-02-23] MEDS ORDERED: MAGNESIUM SULFATE 2 GRAM 2 GM/50 ML BAG IV ONE (07:00)
[2022-02-23] MEDS: cefTRIAXone 1 GM in SODIUM CHLORIDE 0.9% MINIBAG 100 ML IV SCH (08:30)
[2022-02-23] MEDS: SODIUM CHLORIDE FLUSH 0.9% 10 ML SYRINGE IVP SCH ×2 (08:31→16:08)
[2022-02-23] MEDS ORDERED: POTASSIUM PHOSPHATE 15 MMOL in SODIUM CHLORIDE 0.9% 250 ML IV ONE (09:00)
[2022-02-23 09:07] LABS: HIV SCREEN 4TH GENERATION Non Reactive (Non Reactive)
[2022-02-23 11:08] LABS: HBsAG SCREEN Negative (Negative); HCV AB <0.1 s/co ratio (0.0-0.9); HEPATITIS B CORE IGM AB Negative (Negative)
[2022-02-24] MEDS: SODIUM CHLORIDE FLUSH 0.9% 10 ML SYRINGE IVP SCH ×2 (01:00→09:25)
--- NOTE | 2022-02-24 04:32 | TELEPSYCH PHYS NOTE ---
Telepsych Consultation Note Consult: Name: DIONI GONZALEZDOB: 1990 DateandTime: 02/24/2022 7:09:40 AM [facility] the patient: [facility] EDLocation of the doctor: [place] Length of consult: 45 This evaluation was conducted via video telepsychiatry with the assistance of onsite staff Reason for consult: AMS Requested by: medical staff History of Present Illness: Pt seen via televideo with the help of onsite staff. Pt is a 31 yo male with reported hx of schizoaffective disorder. Pt however states a hx of mild depression I think. Pt also reports prior hx of inpt psychiatric admissions however states he does not recall the reason for the admissions. Pt is currently medically admitted since 02/22 . He initially presented to the ED, BIB EMS after he was picked up in an altered mental state. Reportedly only wearing hat and shoes and complaining that his penis was enlarged 10-15x the normal size. He was noted to be highly agitated and combative in the ED, including threatening towards staff requiring chemical and 4pt restraints. PRNs included ketamine, Ativan and Zyprexa. He was transferred to the ICU for further management. Pt was found to have UDS + methamphetamine and cannabinoids. Found to have an elevated WBC, UA + for UTI and + for Gonorrhea. He is admitted for gonococcal urethritis, sepsis. His AMS was deemed likely related to his meth abuse. Chart reviewed and appreciated. Pt seen and evaluated. Pts is awake. Unable to answer orienting questions. States, its too early in the morning to remember anything. He is able to state that he is in the hospital and states it is related to an emergency with his genitals. States a bug swoll up and swam up my penis causing swelling. States he saw and felt the bug. Pt states his penis was very enlarged and painful. He denies he was only wearing a hat and shoes. Also states he does not recall getting agitated in the ED. Pt states he is tired but his penis is the normal size again. He states prior to coming to the hospital is mood was fine. He is however noted to be irritable and reactive. 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 On ROS, pt currently denies AVHs, delusions nor SI/HI. Reports no prior hx of suicidality, attempts nor aggressive acts. He was however in an altered and agitated state upon ED arrival which was likely 2/2 to his methamphetamine use. Also likely related to his presenting state and thought process of pt being inappropriately dressed and his belief that his penis was swollen 10-15x the normal size and that he saw a bug swim up his penis. Pt was found to have gonococcal urethritis and sepsis which is also likely contributory. His underlying mental health history is not clear to this medical technical writer. The phone number for the pts mother was provided by staff with the pts verbal consent for medical technical writer to reach out. However, unfortunately there was no answer x 3. Currently there is no evidence of acute dangerousness. Pt denies current AVHs, delusions nor SI/HI. States his penis is now the normal size and feels better. Pt is currently receiving IV abx. Collateral Contacted: Vern for not contacting the collateral:No answer Phone Number:Rosie Novoa (mother) [phone] Sleep issues?: No Psychiatric History/Treatment History: Past diagnoses: Schizoaffective Disorder, by hx, Polysubstance abuse UDS + Methamphetamine, cannabinoids Hospitalizations: YesDescription:Pt states he does not remember the reason for prior psychiatric admissions. Current Treatment:No Suicide Assessment: PSS-3: 1) Over the past 2 weeks have you felt down, depressed or hopeless?No 2) Over the past 2 weeks have you had thoughts of killing yourself?No 3) Have you ever in your life attempted to kill yourself?No Within the past 6 months? [facility] Safety Assessment: Risk Factors Stressors: see hpi Attempts/Self-injury: No Impulsivity:YesDescription: Drug/Alcohol History:YesDescription:Pt denies however UDS + Methamphetamines and cannabinoids. Also states he drinks occasionally. Trauma History:Unknown-NA Access to firearms:No HI/Violence/Property destruction:YesDescription:Pt denies Hi nor hx of aggression. Pt was noted to be agitated and combative in the ED requiring chemical and physical restraints when in his altered mental state. Legal: YesDescription:states he does not recall the reason for his longterm time. Family Psych History:No Family History of suicide:No Protective Factors: Can handle stress well?No Quaker?No External: Social supports/ Therapeutic relationships: YesDescription:states parents. Relationship history: single Living situation: homeless Employment: Education: not reported Responsibility to family/children/work: Unknown-NA Future orientation:Unknown-NA Health History: Medical History: gonoccocal urethritis Medications & Freq: tylenol prn, Vancomycin, Rocephin, zofran prn, Haldol PRN Allergies: PCN Mental Status Exam: Appearance and Attire:hospital attire Psychomotor agitation:No abnormality Attitude and behavior:Cooperative, Guarded Speech:No abnormality, Mood:"fine" "tired" Affect:Irritable Thought process:Vague Thought content:No suicidal ideation, No homicidal ideation, No paranoia, No delusions Perception:No hallucinations, No auditory hallucinations, No visual hallucinations Intel:unable to fully assess Abstract:unable to assess fully. Language:No abnormality Orientation:Oriented to person, Oriented to place, Oriented to situation, when asked about the date, states, "its too early to remember anything." Sense:"sleepy" Knowledge:Appropriate for education and socioeconomic status Memory:forgetful Insight:Moderate impairment Judgement:Moderate impairment Gait:not assessed. Impression/Risk Assessment: Current Suicide Risk Elevated?No Current Violence Risk Elevated?No Issues with ability to care for self?No Summary: Currently, pt is noted to be irritable and reactive at this time. there is no evidence of acute dangerousness. Pt denies current AVHs, delusions nor SI/HI. States his penis is now the normal size and feels better. Pt is currently receiving IV abx. His initial agitated and altered mental state was however in an altered and agitated state upon ED arrival which was likely 2/2 Delirium state; multifactorial. 2/2 his methamphetamine use and underlying infection. 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 There is no current evidence of acute dangerousness to require psychiatric admission Business Intelligence Analyst was unable to reach the pts mother/NOK at the provided number. Primary team/SW should continue to reach the pts mother to obtain further collateral re: pts mental health hx and whether any safety concerns. Given that the pt was guarded and vague on details would recommend re-consult once medically cleared for final psychiatric disposition. Level of Care: medically admitted Psychiatric Clearance: Observation level 1:1 needed?: Pharmacological: Please start Zyprexa 5mg po Daily targeting mood sxs. Continue to utilize Haldol PRN agitation Patient psychotic?No Therapy: Supportive Follow up needed while in the hospital?: YesNumber of times:Re-consult once the pt is medically cleared for dispo. Other: N/A List names and roles of persons who participated in consult: Sommer Velasquez (Pt), onsite staff assisted with televideo set up.
[2022-02-24 04:56] LABS: BASOPHILS # (AUTO) 0.1 10^3/uL (0.0-0.1); EOSINOPHILS # (AUTO) 0.2 10^3/uL (0.0-0.7); EOSINOPHILS % (AUTO) 2.7 %; HCT - HEMATOCRIT 35.4 % (42.0-52.0); HGB - HEMOGLOBIN 11.8 g/dL (14.0-18.0); LYMPHOCYTES # (AUTO) 1.9 10^3/uL (1.5-3.5); LYMPHOCYTES % (AUTO) 23.4 %; MEAN CORPUSCULAR HEMOGLOBIN 29.1 pg (27.0-31.0); MEAN CORPUSCULAR HGB CONC 33.3 g/dL (32.0-36.0); MEAN CORPUSCULAR VOLUME 87.4 fL (80.0-94.0); MEAN PLATELET VOLUME 9.5 fL (7.4-11.4); MONOCYTES % (AUTO) 12.3 %; NEUTROPHILS % (AUTO) 60.4 %; PLT - PLATELET COUNT 239 10^3/uL (130-450); RED BLOOD COUNT 4.05 10^6/uL (4.70-6.10); RED CELL DISTRIBUTION WIDTH 13.2 % (12.0-15.0); WHITE BLOOD COUNT 8.3 x10^3/uL (4.8-10.8)
[2022-02-24 05:05] LABS: CALCIUM 8.7 mg/dL (8.5-10.3); CREATININE 0.7 mg/dL (0.6-1.2); POTASSIUM 3.9 mmol/L (3.5-5.0)
[2022-02-24] MEDS ORDERED: OLANZapine ODT 5 MG TABLET TL SCH (09:00)
[2022-02-24 13:01] VITALS: BP 112/64
--- NOTE | 2022-02-24 13:15 | Discharge Plan ---
Discharge Plan Problem Reviewed?: Yes Disposition: Home, Self Care Condition: Stable Prescriptions: OLANZapine [Zyprexa] 5 mg PO DAILY #30 tablet Diet: Regular Activity Restrictions: Activity as Tolerated Shower Restrictions: No Health Concerns: You were hospitalized because of agitation from meth, then you need to sleep it off. We also found you to have gonorrhea and you have completed the antibiotic treatment for that. You had an evaluation by a telepsychiatrist who recommends that you take daily Zyprexa for depression and schizoaffective disorder. The new prescription has been ordered and is being delivered to you. He stopped using meth because it is harming your health. Plan of Treatment: As above. Care Goals: Improvement in symptoms and stabilization are the goals. Assessment: The patient was in agreement with the plan when reviewed by me with him. No Smoking: If you smoke, Please STOP! Call for help.
--- NOTE | 2022-02-24 13:26 | DISCHARGE SUMMARY ---
Discharge Summary Discharge Date: 02/24/22 Discharging Provider: Dr Huyen Gotti Primary Care Provider: None or Uknown Condition at Discharge: Stable Discharge Disposition: 01 Home, Self Care - [facility] History of Present Illness: From the admission H&P of Dr. Babs Cortez: Patient is a 31-year-old male with unknown medical history at this time due to altered mental status. He was brought in by EMS after he had been exhibiting odd behavior. It was reported that he was exposing himself. When the medics arrived where he was he complained of his penis being 10- 15X its size. Medics report not noticing an ything abnormal on examination In the ED he was very belligerent and threatening to hurt staff. At the same time what he was saying was nonsensical. It is reported that he continued to grab at his penis and testicles and pulling at his pubic hair aggressively. e was also noted to flick discharge from the tip of his penis. He required several doses of lorazepam, couple doses of ketamine and a dose of Zyprexa to attain some level of calmness. He was also put in four-point restraints. Objectively he appeared very disheveled and was still thrashing around at the time of exam. There was no redness, sores or discharge noted on or around the genitals. He was also tachycardic into the 120's and febrile with a temp of 38.6 degree celsius. Work up included a CBC which showed a WBC of 12.8. Urinalysis was indicative of a UTI. He also had a lactic acid of 4 and CK of 377. Serology for gonorrhea came back positive. His toxicology was also positive for methamphetamine and cannabinoids. CT abdomen/ pelvis was negative for any acute process. He was presented for admission for further treatment. - CONSULTS | PROCEDURES Consultations: Dr Jennyfer Velasquez, Psychairty (by Telepsych) Procedures: 02/23/22 Telepsych eval Summary: "Currently, pt is noted to be irritable and reactive at this time. there is no evidence of acute dangerousness. Pt denies current AVHs, delusions nor SI/HI. States his penis is now the normal size and feels better. Pt is currently receiving IV abx. His initial agitated and altered mental state was however in an altered and agitated state upon ED arrival which was likely 2/2 Delirium state; multifactorial. 2/2 his methamphetamine use and underlying infection. 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 There is no current evidence of acute dangerousness to require psychiatric admission Marketing Operations Intern was unable to reach the pts mother/NOK at the provided number. Primary team/SW should continue to reach the pts mother to obtain further collateral re: pts mental health hx and whether any safety concerns. Given that the pt was guarded and vague on details would recommend re-consult once medically cleared for final psychiatric disposition". 02/24/22 Patient had a Mental Health eval/consultation the next day by our Developmental Electronics Assembler Rosie North, who found no reason for patient to be detained or to call DCR. - HOSPITAL COURSE Hospital Course: (1) Sepsis His WBC was 12.8 and Lactic acid was 4.0. He was started on iv fluids and received iv Rocephin and Vanco empirically. (2) Gonococcal urethritis in male He was put on rocephin IV. and empiric Vancomycin, which was discontinued. He was test for other STD's to include HIV, Hepatitis and Syphilis, and these were neg. He was also negative for Chlamydia. He received several more iv doses of Ceftriaxone, which ended before discharge. (3) Methamphetamine use Haldol q6hrs was ordered prn for agitation. He was put on IV hydration. After agitation was treated, he was then very somnolent for several days, likely withdrawing from methamphetamine use. At discharge, stopping meth use was advised. (4) Rhabdomyolysis His total CK at admission was 367 and he was put on iv fluids and got sedatives. (5) Altered mental state He was agitated and confused, required Haldol and Ativan and temporary 4 point restraints. Then he was somnolent, for several days,withdrawing off meth. When he awoke, he was no longer belligerent and cooperated with Telepsych eval. (6) Schizoaffective disorder with depression The Telepsych Psychiatrist recommended Zyprexa 5mg daily, which he took and a prescription for Zyprexa 5 mg daily was ordered at discharge. He told the SW he would not take it, but told this Hospitalist he agreed to take it. (7) Homeless single person PRASHANT confirmed, after he awoke, that he did live in a senior care and was familiar with using the bus system. - ALLERGIES Allergies/Adverse Reactions: Allergies Allergy/AdvReac Type Severity Reaction Status Date / Time Penicillins Allergy Edema Verified 04/13/21 16:46 cillins Allergy Edema Uncoded 04/13/21 16:46 - MEDICATIONS Home Medications: Ambulatory Orders Medication Instructions Recorded Confirmed OLANZapine [Zyprexa] 5 mg PO DAILY #30 tablet 02/24/22 - PHYSICAL EXAM AT DISCHARGE General Appearance: positive: No acute distress, Alert Eyes Bilateral: positive: Normal inspection, EOMI ENT: positive: ENT inspection nml, No signs of dehydration Neck: positive: Nml inspection, No JVD Respiratory: positive: No respiratory distress Cardiovascular: positive: Regular rate & rhythm Abdomen: positive: Non-tender, No distention Skin: positive: Warm, Dry Extremities: positive: Non-tender, No pedal edema Neurologic/Psychiatric: positive: Oriented x3 (Non-focal) - LABS Result Diagrams: 02/24/22 04:50 02/24/22 04:50 - DIAGNOSTIC IMAGING Diagnostic Imaging Results: Final report reviewed - SEPSIS Current Stage of Sepsis: Sepsis Possible source of Sepsis: Genitourinary Sepsis Criteria: Recorded Temperature greater than 38.3C or Less than 36C, Recorded Heart Rate greater than 90 bpm, WBC count greater than 12,000 or less than 4000, CABINET ABRASIVE SANDBLASTER: altered consciousness (unrelated to primary neuro pathology), Metabolic: lactate > 2 mmol/L - FOLLOW UP Follow Up: He has no established PCP, which would be helpful. - TIME SPENT Time Spent in Discharge (Minutes): 30
== END 2022-02-24 14:42 | disposition home or self-care (01) | DRG 872 ==
LOC: EDUNIT# → EDBD → ED 21:16 → ICU 02-22 02:20 → MS2 02-23 17:35
PROVIDERS: ADMIT Internal Medicine; ATTEND Internal Medicine
DX: A41.9 Sepsis, unspecified organism (principal); A54.01 Gonococcal cystitis and urethritis, unspecified; F19.250 Other psychoactive substance dependence with psychoactive substance-induced psychotic disorder with delusions; M62.82 Rhabdomyolysis; E87.2 Acidosis; F15.13 Other stimulant abuse with withdrawal; Z72.89 Other problems related to lifestyle; F39 Unspecified mood [affective] disorder; Z78.1 Physical restraint status; F25.1 Schizoaffective disorder, depressive type; Z59.01 Sheltered homelessness; Z20.822 Contact with and (suspected) exposure to COVID-19
CPT/HCPCS: 36415; 71045; 74177; 80048; 80053; 80306; 80307; 80320; 80329; 81001; 82330; 82550; 82553; 83605; 83690; 83735; 84100; 84132; 84443; 85025; 86705; 86709; 86780; 86803; 87040; 87086; 87150; 87340; 87389; 87491; 87591; 87633; 93005; 96365; 96366; 96368; 96372; 96375; 99285; 99291; A9270; J2060; J2250; J3370; Q3014; Q9967; 81003; 87661

== ENCOUNTER 2022-06-27 13:36 | Emergency (ER) | payer MEDICAID ==
[2022-06-27 13:43] VITALS: BP 129/72
--- NOTE | 2022-06-27 14:13 | ED Physician Documentation ---
History of Present Illness - Stated complaint Stated Complaint: FALL - Chief complaint Chief Complaint: General - History obtained from History obtained from: Patient - Additonal information Additional information: 31-year-old gentleman discharged from [facility] this morning. He had a long course there related to a thoracic spine fracture with fixation and resultant paraplegia. He was discharged to a homeless long term in a wheelchair. He presents the emergency department requesting a "plunger" in case he needs to remove his Merino suddenly. He has no other complaints. He denies drug use sinc e discharge with the exception of marijuana. Review of Systems Constitutional: denies: Fever, Chills Cardiac: denies: Chest pain / pressure, Palpitations Respiratory: denies: Dyspnea, Cough PD PAST MEDICAL HISTORY - Past Medical History Cardiovascular: None Respiratory: None Neuro: None Endocrine/Autoimmune: None GI: None : None HEENT: None Psych: Bipolar disorder, Post traumatic stress disorder Musculoskeletal: None Derm: None - Past Surgical History Past Surgical History: No - Present Medications Home Medications: Ambulatory Orders Medication Instructions Recorded Confirmed OLANZapine [Zyprexa] 5 mg PO DAILY #30 tablet 02/24/22 - Allergies Allergies/Adverse Reactions: Allergies Allergy/AdvReac Type Severity Reaction Status Date / Time Penicillins Allergy Edema Verified 06/27/22 13:39 - Social History Does the pt smoke?: Yes Smoking Status: Current every day smoker Does the pt drink ETOH?: Yes Does the pt have substance abuse?: No - Immunizations Immunizations are current?: Yes Immunizations: TDAP >10years/unknown - POLST Patient has POLST: No POLST Status: Full Code PD ED PE NORMAL - Vitals Vital signs reviewed: Yes - General General: Alert and oriented X 3, Other (He is an intense appearing gentleman In a wheelchair.) - Cardiac Cardiac: Other (Tachycardic but regular without murmur) - Respiratory Respiratory: No respiratory distress, Clear bilaterally - Abdomen Abdomen: Non tender - Neuro Neuro: Alert and oriented X 3, Normal speech, Other (Paraplegic) Results - Vitals Vitals: Vital Signs - 24 hr 06/27/22 06/27/22 13:40 14:17 Temperature 36.5 C Heart Rate 158 H 134 H Respiratory 16 Rate Blood Pressure 129/72 O2 Saturation 100 98 Oxygen O2 Source Room air PD MEDICAL DECISION MAKING - ED course ED course: I discussed with him that we really would not want him removing his Merino at home, since he has neurogenic bladder if he develops symptoms related to his Merino he should return to the emergency department. I was able to look at a discharge summary from this morning from [facility], at which time his heart rate was 93. He denies drug use with the exception of marijuana since discharge. I was observing him to see if his heart rate would come down but he ended up eloping. Departure - Departure Disposition: ED Elope
== END 2022-06-27 14:40 | disposition left against medical advice (07) ==
LOC: ED 13:36
DX: Z76.89 Persons encountering health services in other specified circumstances (principal); Z59.01 Sheltered homelessness; F17.200 Nicotine dependence, unspecified, uncomplicated
CPT/HCPCS: 99281

== ENCOUNTER 2022-06-27 22:57 | Outpatient (CLI) | payer MEDICAID | END 2022-06-27 22:58 | disposition critical access hospital (66) | LOC: EMS 22:57 | DX: M79.652 Pain in left thigh (principal); R20.8 Other disturbances of skin sensation; V00.811A Fall from moving wheelchair (powered), initial encounter; Y92.89 Other specified places as the place of occurrence of the external cause | CPT/HCPCS: A0425; A0429; A0999 ==

== ENCOUNTER 2022-06-27 23:12 | Emergency (ER) | payer MEDICAID ==
--- NOTE | 2022-06-27 23:50 | ED Physician Documentation ---
PD HPI LOWER EXT INJURY - Stated complaint Stated Complaint: FALL/INJ - Chief complaint Chief Complaint: Trauma Ext - History obtained from History obtained from: Patient, EMS - Additional information Additional information: Patient is a 31-year-old male and L1 spinal cord injury with Paralysis presenting for evaluation of left leg painThat started this evening after fall from wheelchair. Patient was wheeling himself between [facility] and [facility] and fell as a wheelchair went down the hill. He denies hitting his head or losing consciousness. He reports pain behind the left thigh. He was just discharged this morning from [facility]'s inpatient rehab after A 1 month stay from a spinal cord injury sustained on May 29. On review of records from [facility] he appears to have partial lower extremity paralysis with left leg weaker than right. He has a indwelling Merino in place and presented earlier today to the emergency department to try and have something to remove the Merino. He was noted to be tachycardic and plan was to observe him but he eloped during that stay. He admits to marijuana use and smoking something else and a pipe. He does have a history of methamphetamine abuse. Review of Systems Constitutional: denies: Fever Cardiac: denies: Chest pain / pressure Respiratory: denies: Dyspnea GI: denies: Abdominal Pain : reports: Other (Neurogenic bladder) Musculoskeletal: reports: Extremity pain Neurologic: denies: Headache, Head injury PD PAST MEDICAL HISTORY - Past Medical History Cardiovascular: None Respiratory: None Neuro: None Endocrine/Autoimmune: None GI: None : None HEENT: None Psych: Bipolar disorder, Post traumatic stress disorder Musculoskeletal: None Derm: None - Past Surgical History Past Surgical History: No Neuro: Other - Present Medications Home Medications: Ambulatory Orders Medication Instructions Recorded Confirmed OLANZapine [Zyprexa] 5 mg PO DAILY #30 tablet 02/24/22 Acetaminophen [Acetaminophen Extra 500 mg PO Q4HR PRN 06/27/22 06/27/22 Strength] methocarbamoL [Methocarbamol] 500 mg PO DAILY 06/27/22 06/27/22 polyethylene glycoL 3350 06/27/22 [Polyethylene Glycol 3350] - Allergies Allergies/Adverse Reactions: Allergies Allergy/AdvReac Type Severity Reaction Status Date / Time Penicillins Allergy Edema Verified 06/27/22 23:23 - Social History Does the pt smoke?: Yes Smoking Status: Current every day smoker Does the pt drink ETOH?: Yes Does the pt have substance abuse?: No - Immunizations Immunizations are current?: Yes Immunizations: TDAP >10years/unknown - POLST Patient has POLST: No POLST Status: Full Code PD ED PE NORMAL - General General: Alert and oriented X 3, No acute distress, Well developed/nourished - HEENT HEENT: Atraumatic - Neck Neck: Supple, no meningeal sign, No bony TTP, C-Spine cleared by NEXUS criteria - Cardiac Cardiac: Strong equal pulses, Other (Tachycardic, regular rhythm) - Respiratory Respiratory: No respiratory distress, Clear bilaterally - Abdomen Abdomen: Non tender, Non distended - Extremities Extremities: No deformity, No edema, No calf tenderness / cord, Other (Weakness to bilateral lower extremities, left greater than right, Pedal pulses intact,Patient is able to pull his right leg up to him with flexion at knee and hip, has Slight ability to do the same on his left leg but it is much weaker) - Neuro Neuro: Alert and oriented X 3, Normal speech, Other (Paraplegia) Results - Vitals Vitals: Vital Signs - 24 hr 06/27/22 06/28/22 06/28/22 23:15 00:18 01:44 Temperature 36.9 C Heart Rate 131 H 112 H 117 H Respiratory 25 H 24 17 Rate Blood Pressure 110/80 114/74 110/69 O2 Saturation 99 97 99 06/28/22 06/28/22 02:00 04:00 Temperature Heart Rate 104 H 116 H Respiratory 18 15 Rate Blood Pressure 110/80 111/74 O2 Saturation 96 100 Oxygen O2 Source Room air - Labs Labs: Laboratory Tests 06/27/22 23:54 Urine Opiates Screen NEGATIVE Ur Oxycodone Screen POSITIVE H Urine Methadone Screen NEGATIVE Ur Propoxyphene Screen NEGATIVE Ur Barbiturates Screen NEGATIVE Ur Tricyclics Screen NEGATIVE Ur Phencyclidine Scrn NEGATIVE Ur Amphetamine Screen POSITIVE H U Methamphetamines Scrn POSITIVE H U Benzodiazepines Scrn NEGATIVE Urine Cocaine Screen NEGATIVE U Cannabinoids Screen POSITIVE H PD MEDICAL DECISION MAKING - ED course Complexity details: reviewed results, re-evaluated patient, d/w patient ED course: Patient evaluated after fall from wheelchair. He had been discharged earlier in the day from [facility] after a 1 month stay from a spinal cord injury resulting in partial paralysis.There are no deformities noted to his left leg. X-rays were obtained and also negative for fracture or dislocation. Patient's motor function appears to be similar to when he was discharged this morning.He was noted to be tachycardic upon arrival and was in wet clothing. Admits to meth use. Patient allowed to sleep for several hours in the emergency department as the buses are not currently running and he has no proper dry pants (will be given paper scrubs) and is homeless. Patient states he has a place to stay in [place] and is able to go there when the buses are running.Tachycardia is improved. Do not suspect sepsis or dehydration as he was just discharged from a hospital setting this morning. Departure - Departure Disposition: 01 Home, Self Care Clinical Impression: History of paraplegia, Methamphetamine abuse Fall from wheelchair Qualifiers: Encounter type: initial encounter Qualified Code(s): W05.0XXA - Fall from non- moving wheelchair, initial encounter Condition: Stable Instructions: ED Strain Muscle Ext Comments: You were evaluated after falling out of your wheelchair. Multiple x-rays were taken of your left leg and no fractures or dislocations seen.Please continue with taking any medications that you were given upon discharge from [facility]. If you have any worsening pain or new symptoms please return to the emergency department.
[2022-06-28 00:02] LABS: MUDS CUTOFF CONCENTRATIONS CUTOFF CONC BELOW:
[2022-06-28 00:15] LABS: AMPHETAMINE SCREEN,URINE POSITIVE (NEGATIVE); BARBITURATE SCREEN,UR NEGATIVE (NEGATIVE); BENZODIAZEPINES SCREEN, URINE NEGATIVE (NEGATIVE); COCAINE SCREEN URINE NEGATIVE (NEGATIVE); METHADONE SCREEN, URINE NEGATIVE (NEGATIVE); METHAMPHETAMINES SCREEN, URINE POSITIVE (NEGATIVE); OPIATE SCREEN, URINE NEGATIVE (NEGATIVE); OXYCODONE SCREEN, URINE POSITIVE (NEGATIVE); PROPOXYPHENE SCREEN, URINE NEGATIVE (NEGATIVE); TRICYCLIC ANTIDEPRESSANT,URINE NEGATIVE (NEGATIVE)
[2022-06-28 00:23] LABS: THC CANNABINOID SCREEN, URINE POSITIVE (NEGATIVE)
--- NOTE | 2022-06-28 00:28 | XRAY Report ---
PROCEDURE: Hip w/Pelvis 2-3V LT INDICATIONS: fall TECHNIQUE: AP pelvis with lateral view of the left hip. COMPARISON: Concurrent study of the left femur. FINDINGS: Bones: No fractures or dislocations. Pelvic ring appears intact. No suspicious bony lesions. Soft tissues: The visualized bowel gas pattern is normal. No suspicious soft tissue calcifications. IMPRESSION: 1. No fracture or dislocation. Reviewed by: Rishabh Foreman MD on 06/28/2022 12:27 AM PDT Approved by: Rishabh Foreman MD on 06/28/2022 12:27 AM PDT Station ID: [id number]
--- NOTE | 2022-06-28 00:29 | XRAY Report ---
PROCEDURE: Ankle 3 View LT INDICATIONS: fall TECHNIQUE: 3 views of the ankle were acquired. COMPARISON: Concurrent study of the tibia and fibula. FINDINGS: Bones: No fractures or dislocations. Ankle mortise is normally aligned. No suspicious bony lesions . Soft tissues: No tibiotalar joint effusion. Achilles tendon appears normal. IMPRESSION: 1. No fracture or dislocation. Reviewed by: Rishabh Foreman MD on 06/28/2022 12:28 AM PDT Approved by: Rishabh Foreman MD on 06/28/2022 12:28 AM PDT Station ID: [id number]
--- NOTE | 2022-06-28 00:30 | XRAY Report ---
PROCEDURE: Femur 2V LT INDICATIONS: fall TECHNIQUE: 4 views of the femur were acquired. COMPARISON: Concurrent study of the left hip. FINDINGS: Bones: No fractures or dislocations. No suspicious bony lesions. Soft tissues: No suspicious soft tissue calcifications or masses. IMPRESSION: 1. No fracture or dislocation. Reviewed by: Rishabh Foreman MD on 06/28/2022 12:29 AM PDT Approved by: Rishabh Foreman MD on 06/28/2022 12:29 AM PDT Station ID: [id number]
--- NOTE | 2022-06-28 00:31 | XRAY Report ---
PROCEDURE: Tib/Fib LT INDICATIONS: history of T12 fx; paraplegia TECHNIQUE: 2 views of the tibia and fibula were acquired. COMPARISON: Concurrent studies of the femur and ankle. FINDINGS: Bones: No fractures or dislocations. No suspicious bony lesions. Soft tissues: No suspicious soft tissue calcifications or masses. IMPRESSION: 1. No fracture or dislocation. Reviewed by: Rishabh Foreman MD on 06/28/2022 12:29 AM PDT Approved by: Rishabh Foreman MD on 06/28/2022 12:29 AM PDT Station ID: [id number]
[2022-06-28] MEDS ORDERED: SOAP SUDS ENEMA 1 EACH RC ONE (04:29)
[2022-06-28 05:24] VITALS: BP 123/68
== END 2022-06-28 05:23 | disposition home or self-care (01) ==
LOC: EDUNIT# → ED 23:12
DX: G83.89 Other specified paralytic syndromes (principal); F15.10 Other stimulant abuse, uncomplicated; W05.0XXA Fall from non-moving wheelchair, initial encounter; F17.200 Nicotine dependence, unspecified, uncomplicated; Z76.89 Persons encountering health services in other specified circumstances; Z59.01 Sheltered homelessness
CPT/HCPCS: 36415; 80306; 99283; 99284

== ENCOUNTER 2022-06-28 07:08 | Emergency (ER) | payer MEDICAID ==
[2022-06-28] MEDS ORDERED: DROPERIDOL 5 MG/2 ML VIAL IVP STA (07:39)
[2022-06-28] MEDS ORDERED: SODIUM CHLORIDE 0.9% 1,000 ML IV STA (07:39)
[2022-06-28] MEDS ORDERED: KETOROLAC 15 MG/ML VIAL IVP STA (07:39)
--- NOTE | 2022-06-28 07:41 | ED Physician Documentation ---
PD HPI NVD - Stated complaint Stated Complaint: MHE/PAIN - History obtained from History obtained from: Patient - History of Present Illness Timing - onset: Last night, Yesterday (The patient's main complaint is having back pain as well as feeling anxious nauseous and has had vomiting overnight. Feeling of feverish. No cough or sore throat.), Other (patient is very agitated and aminated.) Timing - details: Gradual onset, Other (unknown onset) Associated symptoms: Abdominal pain (He complains of some pain in the abdomen diffuse and cramping. Also back pain.). No: Fever Contributing factors: Other (He states he is feeling anxious nauseous with some vomiting. Having ongoing back pain since a back injury recently.). No: Sick contact, Bad food Improved by: No: Vomiting Worsened by: Moving. No: Breathing Review of Systems Constitutional: denies: Fever Nose: denies: Rhinorrhea / runny nose, Congestion Throat: denies: Sore throat Respiratory: denies: Cough GI: reports: Abdominal Pain (cramping), Nausea, Vomiting. denies: Constipation Skin: denies: Rash, Lesions Psychiatric: reports: Anxiety. denies: Depressed, Suicidal PD PAST MEDICAL HISTORY - Past Medical History Cardiovascular: None Respiratory: None Neuro: None Endocrine/Autoimmune: None GI: None : None HEENT: None Psych: Bipolar disorder, Post traumatic stress disorder Musculoskeletal: None Derm: None - Past Surgical History Past Surgical History: No Neuro: Other - Present Medications Home Medications: Ambulatory Orders Medication Instructions Recorded Confirmed OLANZapine [Zyprexa] 5 mg PO DAILY #30 tablet 02/24/22 Acetaminophen [Acetaminophen Extra 500 mg PO Q4HR PRN 06/27/22 06/27/22 Strength] methocarbamoL [Methocarbamol] 500 mg PO DAILY 06/27/22 06/27/22 polyethylene glycoL 3350 06/27/22 [Polyethylene Glycol 3350] Acetaminophen [Acetaminophen Extra 500 mg PO QID PRN #50 tablet 06/28/22 Strength] Meloxicam [Mobic] 7.5 mg PO BID 10 Days #20 tablet 06/28/22 - Allergies Allergies/Adverse Reactions: Allergies Allergy/AdvReac Type Severity Reaction Status Date / Time Penicillins Allergy Edema Verified 06/28/22 07:36 - Living Situation Living Situation: reports: Alone Living Arrangement: reports: Homeless - Social History Does the pt smoke?: Yes Smoking Status: Current every day smoker Does the pt drink ETOH?: Yes Does the pt have substance abuse?: Yes Substance Use and Type: Marijuana, Meth - Immunizations Immunizations are current?: Yes Immunizations: TDAP >10years/unknown - POLST Patient has POLST: No POLST Status: Full Code PD ED PE NORMAL - Vitals Vital signs reviewed: Yes - General General: Well developed/nourished, Other (Is alert but agitated and somewhat animated and hyperactive. Tachycardic. Moving his legs moderately well and able to lift up off the cart more to the right upper extremity strength is good.) - HEENT HEENT: Atraumatic, PERRL, EOMI (no nystagmus), Pharynx benign. No: Moist mucous membranes - Neck Neck: Supple, no meningeal sign, No adenopathy - Cardiac Cardiac: No murmur. No: RRR (tachycardic but regular) - Respiratory Respiratory: Clear bilaterally - Abdomen Abdomen: Normal bowel sounds, Soft, Non distended, No organomegaly, Other (mild tender epigastric without guarding. ) - Derm Derm: Normal color, Warm and dry, No rash - Extremities Extremities: No edema, No calf tenderness / cord. No: Normal ROM s pain (moderate weakness in legs, more to the left. Upper extremities good movement and strength. ) - Neuro Neuro: Alert and oriented X 3, Normal speech Results - Vitals Vitals: Vital Signs - 24 hr 06/28/22 06/28/22 06/28/22 07:36 08:11 09:00 Temperature 36.9 C Heart Rate 108 H 93 96 Respiratory 24 18 16 Rate Blood Pressure 113/73 100/75 105/75 O2 Saturation 100 97 97 06/28/22 06/28/22 06/28/22 10:37 12:12 14:34 Temperature Heart Rate 93 100 94 Respiratory 16 16 18 Rate Blood Pressure 111/74 116/76 107/47 L O2 Saturation 99 98 99 Oxygen O2 Source Room air - Labs Labs: Laboratory Tests 06/28/22 06/28/22 06/28/22 07:50 07:50 08:00 WBC 12.8 H RBC 4.13 L Hgb 11.4 L Hct 33.9 L MCV 82.1 MCH 27.6 MCHC 33.6 RDW 14.1 Plt Count 295 MPV 8.9 Neut # (Auto) 9.6 H Lymph # (Auto) 1.5 [place] # (Auto) 1.4 H Eos # (Auto) 0.0 Baso # (Auto) 0.1 Absolute Nucleated RBC 0.00 Nucleated RBC % 0.0 Sodium 136 Potassium 3.5 Chloride 99 L Carbon Dioxide 21 Anion Gap 16.0 H BUN 19 Creatinine 0.7 Estimated GFR (MDRD) 131 Glucose 99 Calcium 10.5 H Magnesium 2.1 Total Bilirubin 1.4 H AST 51 H ALT 30 Alkaline Phosphatase 102 Total Creatine Kinase 1863 H* Total Protein 8.3 H Albumin 4.6 Globulin 3.7 Albumin/Globulin Ratio 1.2 Lipase 21 L Nasal Adenovirus (PCR) NOT DETECTED Nasal B. parapertussis DNA (PCR) NOT DETECTED Nasal Coronavir 229E PCR NOT DETECTED Nasal Coronavir HKU1 PCR NOT DETECTED Nasal Coronavir NL63 PCR NOT DETECTED Nasal Coronavir OC43 PCR NOT DETECTED Nasal Enterovir/Rhinovir PCR NOT DETECTED Nasal Influenza B PCR NOT DETECTED Nasal Influenza A PCR NOT DETECTED Nasal Parainfluen 1 PCR NOT DETECTED Nasal Parainfluen 2 PCR NOT DETECTED Nasal Parainfluen 3 PCR NOT DETECTED Nasal Parainfluen 4 PCR NOT DETECTED Nasal RSV (PCR) NOT DETECTED Nasal B.pertussis DNA PCR NOT DETECTED Nasal C.pneumoniae (PCR) NOT DETECTED Sin Human Metapneumo PCR NOT DETECTED Nasal M.pneumoniae (PCR) NOT DETECTED Nasal SARS-CoV-2 (PCR) NOT DETECTED Urine Opiates Screen Ur Oxycodone Screen Urine Methadone Screen Ur Propoxyphene Screen Ur Barbiturates Screen Ur Tricyclics Screen Ur Phencyclidine Scrn Ur Amphetamine Screen U Methamphetamines Scrn U Benzodiazepines Scrn Urine Cocaine Screen U Cannabinoids Screen 06/28/22 06/28/22 08:50 10:37 WBC RBC Hgb Hct MCV MCH MCHC RDW Plt Count MPV Neut # (Auto) Lymph # (Auto) [place] # (Auto) Eos # (Auto) Baso # (Auto) Absolute Nucleated RBC Nucleated RBC % Sodium 137 Potassium 3.8 Chloride 102 Carbon Dioxide 24 Anion Gap 11.0 BUN 17 Creatinine 0.6 Estimated GFR (MDRD) 156 Glucose 96 Calcium 9.3 Magnesium Total Bilirubin AST ALT Alkaline Phosphatase Total Creatine Kinase 1450 H* Total Protein Albumin Globulin Albumin/Globulin Ratio Lipase Nasal Adenovirus (PCR) Nasal B. parapertussis DNA (PCR) Nasal Coronavir 229E PCR Nasal Coronavir HKU1 PCR Nasal Coronavir NL63 PCR Nasal Coronavir OC43 PCR Nasal Enterovir/Rhinovir PCR Nasal Influenza B PCR Nasal Influenza A PCR Nasal Parainfluen 1 PCR Nasal Parainfluen 2 PCR Nasal Parainfluen 3 PCR Nasal Parainfluen 4 PCR Nasal RSV (PCR) Nasal B.pertussis DNA PCR Nasal C.pneumoniae (PCR) Sin Human Metapneumo PCR Nasal M.pneumoniae (PCR) Nasal SARS-CoV-2 (PCR) Urine Opiates Screen NEGATIVE Ur Oxycodone Screen POSITIVE H Urine Methadone Screen NEGATIVE Ur Propoxyphene Screen NEGATIVE Ur Barbiturates Screen NEGATIVE Ur Tricyclics Screen NEGATIVE Ur Phencyclidine Scrn NEGATIVE Ur Amphetamine Screen POSITIVE H U Methamphetamines Scrn POSITIVE H U Benzodiazepines Scrn NEGATIVE Urine Cocaine Screen NEGATIVE U Cannabinoids Screen POSITIVE H PD MEDICAL DECISION MAKING - ED course Complexity details: reviewed old records, re-evaluated patient (Complaining of back pain as well as some stomach pain and nausea. Also very anxious and agitated apparent recent meth use. Given fluids, Toradol, Inapsine with improvement in symptoms. Slept few hours. Will have SW see pt, ? detox/drug tx. ), considered differential (The patient complains of some back pain also nausea with some vomiting. He is rather agitated. He describes marijuana and meth use recently. He is given IV fluids with antiemetic and mild pain medicine amount. Improved rested and slept over the next few hours.), d/w patient, d/w consulta nt (Social work is evaluating the patient for possible drug treatment versus rehab. [facility] is considering the patient) ED course: The patient has calmed after time to rest. [facility] may be able to take patient later or tomorrow. Patient prefers to be discharged and go to [facility]. He is awake, alert, not confused, calm and interactive. He is able to make this decision. Departure - Departure Disposition: 01 Home, Self Care Clinical Impression: Nausea and vomiting, Methamphetamine abuse, Agitation, Back pain Condition: Stable Record reviewed to determine appropriate education?: Yes Prescriptions: Acetaminophen [Acetaminophen Extra Strength] 500 mg PO QID PRN #50 tablet PRN Reason: Pain Meloxicam [Mobic] 7.5 mg PO BID 10 Days #20 tablet Comments: Stay well-hydrated. Consider some basic anti-inflammatory type medications to help with your back and pain. Add Tylenol 4 times daily if needed for pain as well. Certainly avoid recreational drug use. Stay well-hydrated otherwise. I can prescribe some anti-inflammatory and acetaminophen medications for you. Discharge Date/Time: 06/28/22 17:06
[2022-06-28 07:58] LABS: BASOPHILS # (AUTO) 0.1 10^3/uL (0.0-0.1); BASOPHILS % (AUTO) 0.8 %; EOSINOPHILS % (AUTO) 0.3 %; HCT - HEMATOCRIT 33.9 % (42.0-52.0); HGB - HEMOGLOBIN 11.4 g/dL (14.0-18.0); LYMPHOCYTES # (AUTO) 1.5 10^3/uL (1.5-3.5); MEAN CORPUSCULAR HEMOGLOBIN 27.6 pg (27.0-31.0); MEAN CORPUSCULAR HGB CONC 33.6 g/dL (32.0-36.0); MEAN CORPUSCULAR VOLUME 82.1 fL (80.0-94.0); MEAN PLATELET VOLUME 8.9 fL (7.4-11.4); MONOCYTES # (AUTO) 1.4 10^3/uL (0.0-1.0); MONOCYTES % (AUTO) 10.8 %; NEUTROPHILS # (AUTO) 9.6 10^3/uL (1.5-6.6); NEUTROPHILS % (AUTO) 75.6 %; PLT - PLATELET COUNT 295 10^3/uL (130-450); RED BLOOD COUNT 4.13 10^6/uL (4.70-6.10); RED CELL DISTRIBUTION WIDTH 14.1 % (12.0-15.0); WHITE BLOOD COUNT 12.8 x10^3/uL (4.8-10.8)
[2022-06-28 08:28] LABS: ALBUMIN 4.6 g/dL (3.2-5.5); ALBUMIN/GLOBULIN RATIO 1.2 (1.0-2.2); BILIRUBIN,TOTAL 1.4 mg/dL (0.2-1.0); CALCIUM 10.5 mg/dL (8.5-10.3); CREATININE 0.7 mg/dL (0.6-1.2); MAGNESIUM 2.1 mg/dL (1.7-2.8); POTASSIUM 3.5 mmol/L (3.5-5.0); TOTAL PROTEIN 8.3 g/dL (6.7-8.2)
[2022-06-28 08:56] LABS: MUDS CUTOFF CONCENTRATIONS CUTOFF CONC BELOW:
[2022-06-28] MEDS ORDERED: LACTATED RINGERS 1,000 ML IV STA (08:59)
[2022-06-28 09:03] LABS: B. PARAPERTUSSIS- RESP PCR PAN NOT DETECTED; B. PERTUSSIS- RESP PCR PANEL NOT DETECTED; C. PNEUMONIAE- RESP PCR PANEL NOT DETECTED; CORONAVIRUS 229E-RESP PCR NOT DETECTED; CORONAVIRUS HKU1-RESP PCR NOT DETECTED; CORONAVIRUS NL63-RESP PCR NOT DETECTED; CORONAVIRUS OC43-RESP PCR NOT DETECTED; HUMAN METAPNEUMOVIRUS NOT DETECTED; INFLUENZA A- RESP PCR PANEL NOT DETECTED; INFLUENZA B - RESP PCR PANEL NOT DETECTED; M. PNEUMONIAE- RESP PCR PANEL NOT DETECTED; PARAINFLUENZA VIRUS 1 NOT DETECTED; PARAINFLUENZA VIRUS 2 NOT DETECTED; PARAINFLUENZA VIRUS 3 NOT DETECTED; PARAINFLUENZA VIRUS 4 NOT DETECTED; RHINOVIRUS/ENTEROVIRUS NOT DETECTED; RSV- RESP PCR PANEL NOT DETECTED; SARS-CoV-2 -RESP PCR PANEL NOT DETECTED
[2022-06-28 09:13] LABS: COCAINE SCREEN URINE NEGATIVE (NEGATIVE); METHAMPHETAMINES SCREEN, URINE POSITIVE (NEGATIVE); THC CANNABINOID SCREEN, URINE POSITIVE (NEGATIVE)
[2022-06-28 09:14] LABS: AMPHETAMINE SCREEN,URINE POSITIVE (NEGATIVE); BARBITURATE SCREEN,UR NEGATIVE (NEGATIVE); BENZODIAZEPINES SCREEN, URINE NEGATIVE (NEGATIVE); METHADONE SCREEN, URINE NEGATIVE (NEGATIVE); OPIATE SCREEN, URINE NEGATIVE (NEGATIVE); OXYCODONE SCREEN, URINE POSITIVE (NEGATIVE); PROPOXYPHENE SCREEN, URINE NEGATIVE (NEGATIVE); TRICYCLIC ANTIDEPRESSANT,URINE NEGATIVE (NEGATIVE)
[2022-06-28 11:46] LABS: CALCIUM 9.3 mg/dL (8.5-10.3); CREATININE 0.6 mg/dL (0.6-1.2); POTASSIUM 3.8 mmol/L (3.5-5.0)
[2022-06-28 14:35] VITALS: BP 107/47
== END 2022-06-28 17:06 | disposition home or self-care (01) ==
LOC: ED 07:08
DX: R11.2 Nausea with vomiting, unspecified (principal); F15.10 Other stimulant abuse, uncomplicated; R45.1 Restlessness and agitation; M54.9 Dorsalgia, unspecified; F17.200 Nicotine dependence, unspecified, uncomplicated; Z59.00 Homelessness unspecified; Z20.822 Contact with and (suspected) exposure to COVID-19
CPT/HCPCS: 36415; 73502; 73552; 73590; 73610; 80048; 80053; 80306; 82550; 83690; 83735; 85025; 87633; 96361; 96374; 96375; 99281; 99283; 99284; A9270; J7120

== ENCOUNTER 2022-07-02 03:11 | Outpatient (CLI) | payer MEDICAID | END 2022-07-02 03:12 | disposition critical access hospital (66) | LOC: EMS 03:11 → MERGE 03:11 → EMS 03:12 | DX: R10.2 Pelvic and perineal pain (principal); R60.0 Localized edema | CPT/HCPCS: A0425; A0429; A0999 ==

== ENCOUNTER 2022-07-02 03:28 | Emergency (ER) | payer MEDICAID ==
--- NOTE | 2022-07-02 05:31 | ED Physician Documentation ---
History of Present Illness - Stated complaint Stated Complaint: SAENZ PAIN - Chief complaint Chief Complaint: General - History obtained from History obtained from: Patient - Additonal information Additional information: 31-year-old man, recently discharged from [facility] on 06/26 (6 days ago) after extensive treatment for traumatic flare of lesion, Presents actively intoxicated with methamphetamine. Patient states that he felt an electric jolt in his pelvic area around his Saenz site and wanted to be examined. He is calm and cooperative and does endorse having used methamphetam ine.Able to move both feet and transfer from wheelchair to bed with some weakness. Endorses sensation of "jolts" in and out of eyeballs. patient otherwise not articulating other concerns. Review of Systems Ten Systems: 10 systems reviewed and negative : reports: Other ("jolt in pelvic area"). denies: Dysuria, Hematuria, Discharge PD PAST MEDICAL HISTORY - Allergies Allergies/Adverse Reactions: Allergies Allergy/AdvReac Type Severity Reaction Status Date / Time Penicillins Allergy Edema Verified 07/02/22 04:29 PD ED PE NORMAL - Vitals Vital signs reviewed: Yes - General General: Alert and oriented X 3, No acute distress, Well developed/nourished, Other (calm and cooperative) - HEENT HEENT: Atraumatic, PERRL, EOMI - Neck Neck: Supple, no meningeal sign - Cardiac Cardiac: RRR - Respiratory Respiratory: No respiratory distress, Clear bilaterally - Abdomen Abdomen: Non tender, Non distended - Male Male : Turn Down Worker present (JESSICA Iglesias), Other (BL cremaster intact. normal external male genitalia. saenz in place with straw color fluid actively draining) - Derm Derm: Normal color, Warm and dry - Neuro Neuro: Alert and oriented X 3, No motor deficit, No sensory deficit - Psych Psych: Other (elated appearing) Results - Vitals Vitals: Vital Signs - 24 hr 07/02/22 03:28 Temperature 36.5 C Heart Rate 96 Respiratory 19 Rate Blood Pressure 128/84 H O2 Saturation 100 Oxygen O2 Source Room air PD MEDICAL DECISION MAKING - ED course ED course: 31-year-old man presents, stating that he used methamphetamine tonight and would like to be examined due to a jolting feeling in his pelvic area. Also asked for advice on reducing swelling in his feet. Discussed symptomatic care. Reassurance was provided after unremarkable exam. Return precautions given. Patient to follow-up with her primary doctor Departure - Departure Disposition: 01 Home, Self Care Clinical Impression: Encounter for medical screening examination Condition: Good Instructions: ED Catheter Care Wil[place] Comments: You are seen in the emergency department for medical screening exam. Your physical exam showed no emergent problems. Please follow-up with a primary d octor. Return to the emergency department if you have any new or worsening symptoms or other concerns.
[2022-07-02 06:10] VITALS: BP 140/82
== END 2022-07-02 06:10 | disposition home or self-care (01) ==
LOC: MERGE 03:28 → ED 03:28
DX: F15.129 Other stimulant abuse with intoxication, unspecified (principal); R44.8 Other symptoms and signs involving general sensations and perceptions; R22.43 Localized swelling, mass and lump, lower limb, bilateral
CPT/HCPCS: 99281; 99283

== ENCOUNTER 2022-07-03 04:48 | Outpatient (CLI) | payer MEDICAID | END 2022-07-03 04:49 | disposition critical access hospital (66) | LOC: EMS 04:48 | DX: T83.84XA Pain due to genitourinary prosthetic devices, implants and grafts, initial encounter (principal) | CPT/HCPCS: A0425; A0429; A0999 ==

== ENCOUNTER 2022-07-03 05:06 | Emergency (ER) | payer MEDICAID ==
[2022-07-03 05:18] VITALS: BP 112/75
--- NOTE | 2022-07-03 05:34 | ED Physician Documentation ---
History of Present Illness - Stated complaint Stated Complaint: MALE - Chief complaint Chief Complaint: UTI - History obtained from History obtained from: Patient - Additonal information Additional information: 31-year-old man, paraplegic, with chronic indwelling Merino since his discharge from [facility] 06/29, presents with burning sensation at the tip of the penis all the way to the urinary bladder for the past couple days. Patient was seen here yesterday but was acutely intoxicated with methamphetamine. He now presents again and appears clinically sober. Denies fever, back pain, hematuri a. He states that if we provide him with an antibiotic prescription he will be able to fill and take the entire course. Review of Systems Constitutional: denies: Fever, Chills GI: reports: Abdominal Pain, Other (suprapubc pain). denies: Nausea, Vomiting : reports: Dysuria. denies: Hematuria, Discharge PD PAST MEDICAL HISTORY - Past Medical History Cardiovascular: None Respiratory: None Neuro: None Endocrine/Autoimmune: None GI: None : None HEENT: None Psych: Bipolar disorder, Post traumatic stress disorder Musculoskeletal: None Derm: None - Past Surgical History Past Surgical History: No Neuro: Other - Present Medications Home Medications: Ambulatory Orders Medication Instructions Recorded Confirmed OLANZapine [Zyprexa] 5 mg PO DAILY #30 tablet 02/24/22 Acetaminophen [Acetaminophen Extra 500 mg PO Q4HR PRN 06/27/22 06/27/22 Strength] methocarbamoL [Methocarbamol] 500 mg PO DAILY 06/27/22 06/27/22 polyethylene glycoL 3350 06/27/22 [Polyethylene Glycol 3350] Acetaminophen [Acetaminophen Extra 500 mg PO QID PRN #50 tablet 06/28/22 Strength] Meloxicam [Mobic] 7.5 mg PO BID 10 Days #20 tablet 06/28/22 Ciprofloxacin HCl [Cipro] 500 mg PO BID 14 Days #28 tablet 07/03/22 - Allergies Allergies/Adverse Reactions: Allergies Allergy/AdvReac Type Severity Reaction Status Date / Time Penicillins Allergy Edema Verified 07/03/22 05:18 - Social History Does the pt smoke?: Yes Smoking Status: Current every day smoker Does the pt drink ETOH?: Yes Does the pt have substance abuse?: Yes - Immunizations Immunizations are current?: Yes Immunizations: TDAP >10years/unknown - POLST Patient has POLST: No POLST Status: Full Code PD ED PE NORMAL - Vitals Vital signs reviewed: Yes - General General: Alert and oriented X 3, No acute distress, Well developed/nourished - HEENT HEENT: Atraumatic, PERRL, EOMI - Abdomen Abdomen: Non tender, Non distended, Other (Suprapubic discomfort to palpation) - Male Male : Other (Merino in place. Straw-colored fluid in the bag) - Back Back: No CVA TTP - Derm Derm: Normal color, Warm and dry - Extremities Extremities: No deformity - Neuro Neuro: No motor deficit, No sensory deficit - Psych Psych: Normal mood, Normal affect Results - Vitals Vitals: Vital Signs - 24 hr 07/03/22 05:06 Temperature 37.1 C Heart Rate 88 Respiratory 18 Rate Blood Pressure 112/75 O2 Saturation 98 Oxygen O2 Source Room air - Labs Labs: Laboratory Tests 07/03/22 07/03/22 05:10 05:10 Urine Color YELLOW Urine Clarity SL. CLOUDY Urine pH 7.0 Ur Specific [place] 1.015 Urine Protein 30 H Urine Glucose (UA) NEGATIVE Urine Ketones NEGATIVE Urine Occult Blood MODERATE H Urine Nitrite POSITIVE H Urine Bilirubin NEGATIVE Urine Urobilinogen 1 (NORMAL) Ur Leukocyte Esterase LARGE H Urine RBC 6-10 H Urine WBC 6-10 H Ur Squamous Epith Cells RARE Squamous Urine Bacteria Few Urine Opiates Screen NEGATIVE Ur Oxycodone Screen NEGATIVE Urine Methadone Screen NEGATIVE Ur Propoxyphene Screen NEGATIVE Ur Barbiturates Screen NEGATIVE Ur Tricyclics Screen NEGATIVE Ur Phencyclidine Scrn NEGATIVE Ur Amphetamine Screen POSITIVE H U Methamphetamines Scrn POSITIVE H U Benzodiazepines Scrn NEGATIVE Urine Cocaine Screen NEGATIVE U Cannabinoids Screen POSITIVE H PD MEDICAL DECISION MAKING - ED course ED course: 31-year-old man with history of methamphetamine abuse and paraplegia with indwelling Merino catheter presents requesting that we change his catheter. Also states that he has been having dysuria and suprapubic pain. Urinalysis shows infection. Antibiotic prescription provided and return precautions given. Patient will follow-up outpatient with primary care provider (Michelle Hernandez is our contract implementation analyst PCP). Departure - Departure Disposition: 01 Home, Self Care Clinical Impression: UTI (urinary tract infection) Condition: Stable Instructions: ED UTI Cystitis Male Follow-Up: Michelle Hernandez ARNP [Credentialed Staff Provider] - Prescriptions: Ciprofloxacin HCl [Cipro] 500 mg PO BID 14 Days #28 tablet Comments: You were seen in the emergency department for urinary tract infection. Please take your antibiotics as prescribed and follow-up with a primary doctor. Return to the emergency department if you have any new or worsening symptoms or other concerns.
[2022-07-03 05:39] LABS: MUDS CUTOFF CONCENTRATIONS CUTOFF CONC BELOW:
[2022-07-03 05:42] LABS: BILIRUBIN,URINE NEGATIVE (NEGATIVE); GLUCOSE, URINE (UA) NEGATIVE (NEGATIVE); KETONES,URINE (UA) NEGATIVE (NEGATIVE); LEUKOCYTE ESTERASE, URINE LARGE (NEGATIVE); NITRITE,URINE POSITIVE (NEGATIVE); OCCULT BLOOD,URINE MODERATE (NEGATIVE); PROTEIN,URINE 30 mg/dL (NEGATIVE); UROBILINOGEN,URINE 1 (NORMAL) E.U./dL (NORMAL)
[2022-07-03 05:51] LABS: AMPHETAMINE SCREEN,URINE POSITIVE (NEGATIVE); BACTERIA,URINE Few /HPF (None Seen); BARBITURATE SCREEN,UR NEGATIVE (NEGATIVE); BENZODIAZEPINES SCREEN, URINE NEGATIVE (NEGATIVE); CLARITY,URINE SL. CLOUDY (CLEAR); COCAINE SCREEN URINE NEGATIVE (NEGATIVE); METHADONE SCREEN, URINE NEGATIVE (NEGATIVE); METHAMPHETAMINES SCREEN, URINE POSITIVE (NEGATIVE); OPIATE SCREEN, URINE NEGATIVE (NEGATIVE); OXYCODONE SCREEN, URINE NEGATIVE (NEGATIVE); PROPOXYPHENE SCREEN, URINE NEGATIVE (NEGATIVE); SQUAMOUS EPITHELIAL CELL,UR RARE Squamous (<= Few); THC CANNABINOID SCREEN, URINE POSITIVE (NEGATIVE); TRICYCLIC ANTIDEPRESSANT,URINE NEGATIVE (NEGATIVE)
== END 2022-07-03 06:15 | disposition home or self-care (01) ==
LOC: EDUNIT# → ED 05:06
DX: N39.0 Urinary tract infection, site not specified (principal); F17.200 Nicotine dependence, unspecified, uncomplicated
CPT/HCPCS: 51702; 80306; 81001; 87086; 87181; 99282; 99283

== ENCOUNTER 2022-07-04 08:07 | Outpatient (CLI) | payer MEDICAID | END 2022-07-04 08:08 | disposition critical access hospital (66) | LOC: EMS 08:07 | DX: R41.0 Disorientation, unspecified (principal); R46.89 Other symptoms and signs involving appearance and behavior; R45.1 Restlessness and agitation; Z59.02 Unsheltered homelessness; Z72.89 Other problems related to lifestyle | CPT/HCPCS: A0425; A0429; A0999 ==

== ENCOUNTER 2022-07-04 08:25 | Emergency (ER) | payer MEDICAID ==
[2022-07-04 08:47] LABS: BASOPHILS # (AUTO) 0.1 10^3/uL (0.0-0.1); BASOPHILS % (AUTO) 0.9 %; EOSINOPHILS # (AUTO) 0.2 10^3/uL (0.0-0.7); EOSINOPHILS % (AUTO) 1.2 %; HCT - HEMATOCRIT 37.1 % (42.0-52.0); HGB - HEMOGLOBIN 11.6 g/dL (14.0-18.0); LYMPHOCYTES # (AUTO) 1.5 10^3/uL (1.5-3.5); LYMPHOCYTES % (AUTO) 12.1 %; MEAN CORPUSCULAR HGB CONC 31.3 g/dL (32.0-36.0); MEAN CORPUSCULAR VOLUME 86.3 fL (80.0-94.0); MEAN PLATELET VOLUME 8.9 fL (7.4-11.4); MONOCYTES # (AUTO) 1.4 10^3/uL (0.0-1.0); MONOCYTES % (AUTO) 11.2 %; NEUTROPHILS # (AUTO) 9.2 10^3/uL (1.5-6.6); NEUTROPHILS % (AUTO) 74.2 %; PLT - PLATELET COUNT 368 10^3/uL (130-450); RED CELL DISTRIBUTION WIDTH 13.9 % (12.0-15.0); WHITE BLOOD COUNT 12.4 x10^3/uL (4.8-10.8)
--- NOTE | 2022-07-04 08:50 | ED Physician Documentation ---
History of Present Illness - Stated complaint Stated Complaint: MHE - Chief complaint Chief Complaint: MHE - History obtained from History obtained from: Patient, EMS - Additonal information Additional information: Patient is a 31-year-old male with recent spinal cord injury and partial lower extremity paralysis Brought to ER by EMS after police placed patient on involuntary hold for bizarre behavior. Patient was found outside of [facility]. He was not able to answer their questions appropriately and they were concerned he was not able to care for himself.Patient admits to alcohol and marijuana use to day. He denies meth use last night. He denies suicidal or homicidal thoughts.He has been seen several times in our emergency department over the last week including the last 2 days for pain related to his Merino catheter which was changed and he was started on antibiotics. Review of Systems Constitutional: denies: Fever Cardiac: denies: Chest pain / pressure Respiratory: denies: Dyspnea GI: denies: Abdominal Pain : denies: Hematuria Musculoskeletal: denies: Neck pain Neurologic: denies: Headache Psychiatric: denies: Suicidal PD PAST MEDICAL HISTORY - Past Medical History Cardiovascular: None Respiratory: None Neuro: None Endocrine/Autoimmune: None GI: None : None HEENT: None Psych: Bipolar disorder, Post traumatic stress disorder Musculoskeletal: None Derm: None - Past Surgical History Past Surgical History: No Neuro: Other - Present Medications Home Medications: Ambulatory Orders Medication Instructions Recorded Confirmed OLANZapine [Zyprexa] 5 mg PO DAILY #30 tablet 02/24/22 Acetaminophen [Acetaminophen Extra 500 mg PO Q4HR PRN 06/27/22 06/27/22 Strength] methocarbamoL [Methocarbamol] 500 mg PO DAILY 06/27/22 06/27/22 polyethylene glycoL 3350 06/27/22 [Polyethylene Glycol 3350] Acetaminophen [Acetaminophen Extra 500 mg PO QID PRN #50 tablet 06/28/22 Strength] Meloxicam [Mobic] 7.5 mg PO BID 10 Days #20 tablet 06/28/22 Ciprofloxacin HCl [Cipro] 500 mg PO BID 14 Days #28 tablet 07/03/22 - Allergies Allergies/Adverse Reactions: Allergies Allergy/AdvReac Type Severity Reaction Status Date / Time Penicillins Allergy Edema Verified 07/04/22 08:42 - Social History Does the pt smoke?: Yes Smoking Status: Current every day smoker Does the pt drink ETOH?: Yes Does the pt have substance abuse?: Yes - Immunizations Immunizations are current?: Yes Immunizations: TDAP >10years/unknown - POLST Patient has POLST: No POLST Status: Full Code PD ED PE NORMAL - General General: Alert and oriented X 3, No acute distress, Well developed/nourished - HEENT HEENT: Atraumatic, PERRL, EOMI, Moist mucous membranes, Pharynx benign - Neck Neck: Supple, no meningeal sign - Cardiac Cardiac: Strong equal pulses, Other (Tachycardic, regular rhythm) - Respiratory Respiratory: No respiratory distress, Clear bilaterally - Abdomen Abdomen: Non tender, Non distended - Male Male : Other (Merino catheter in place, straw-colored urine) - Extremities Extremities: No edema - Neuro Neuro: Alert and oriented X 3, Other (Lower extremity weakness, left leg greater than right) Eye Opening: Spontaneous Motor: Obeys Commands Verbal: Oriented GCS Score: 15 Results - Vitals Vitals: Vital Signs - 24 hr 07/04/22 07/04/22 07/04/22 08:30 10:01 12:00 Temperature 37.6 C 36.5 C Heart Rate 117 H 105 H 106 H Respiratory 18 18 18 Rate Blood Pressure 114/73 131/95 H 127/91 H O2 Saturation 100 99 99 07/04/22 13:53 Temperature Heart Rate 101 H Respiratory 18 Rate Blood Pressure 118/77 O2 Saturation 96 Oxygen O2 Source Room air - EKG (time done) 0846 Rate: Rate (enter#) (113) Rhythm: Sinus tachycardia Intervals: No: Prolonged QT Ischemia: No: ST elevation c/w ischemia (QTC 429) - Labs Labs: Laboratory Tests 07/04/22 07/04/22 07/04/22 08:40 08:40 08:40 WBC 12.4 H RBC 4.30 L Hgb 11.6 L Hct 37.1 L MCV 86.3 MCH 27.0 MCHC 31.3 L RDW 13.9 Plt Count 368 MPV 8.9 Neut # (Auto) 9.2 H Lymph # (Auto) 1.5 Humphreys # (Auto) 1.4 H Eos # (Auto) 0.2 Baso # (Auto) 0.1 Absolute Nucleated RBC 0.00 Nucleated RBC % 0.0 Sodium 140 Potassium 3.5 Chloride 101 Carbon Dioxide 24 Anion Gap 15.0 H BUN 15 Creatinine 0.7 Estimated GFR (MDRD) 131 Glucose 99 Calcium 9.9 Total Bilirubin 0.7 AST 25 ALT 26 Alkaline Phosphatase 109 Total Protein 8.4 H Albumin 4.7 Globulin 3.7 Albumin/Globulin Ratio 1.3 Lipase 24 TSH 0.88 Urine Color Urine Clarity Urine pH Ur Specific [place] Urine Protein Urine Glucose (UA) Urine Ketones Urine Occult Blood Urine Nitrite Urine Bilirubin Urine Urobilinogen Ur Leukocyte Esterase Urine RBC Urine WBC Ur Squamous Epith Cells Urine Bacteria Urine Mucus Ur Microscopic Review Urine Culture Comments Salicylates < 6.0 Urine Opiates Screen Ur Oxycodone Screen Urine Methadone Screen Ur Propoxyphene Screen Acetaminophen < 10 L Ur Barbiturates Screen Ur Tricyclics Screen Ur Phencyclidine Scrn Ur Amphetamine Screen U Methamphetamines Scrn U Benzodiazepines Scrn Urine Cocaine Screen U Cannabinoids Screen Ethyl Alcohol 41.0 07/04/22 09:58 WBC RBC Hgb Hct MCV MCH MCHC RDW Plt Count MPV Neut # (Auto) Lymph # (Auto) Humphreys # (Auto) Eos # (Auto) Baso # (Auto) Absolute Nucleated RBC Nucleated RBC % Sodium Potassium Chloride Carbon Dioxide Anion Gap BUN Creatinine Estimated GFR (MDRD) Glucose Calcium Total Bilirubin AST ALT Alkaline Phosphatase Total Protein Albumin Globulin Albumin/Globulin Ratio Lipase TSH Urine Color YELLOW Urine Clarity SL. CLOUDY Urine pH 6.0 Ur Specific [place] >=1.030 H Urine Protein 30 H Urine Glucose (UA) NEGATIVE Urine Ketones NEGATIVE Urine Occult Blood LARGE H Urine Nitrite POSITIVE H Urine Bilirubin NEGATIVE Urine Urobilinogen 0.2 (NORMAL) Ur Leukocyte Esterase MODERATE H Urine RBC 11-25 H Urine WBC 11-25 H Ur Squamous Epith Cells FEW Squamous Urine Bacteria Moderate H Urine Mucus Few Strands Ur Microscopic Review INDICATED Urine Culture Comments INDICATED Salicylates Urine Opiates Screen NEGATIVE Ur Oxycodone Screen NEGATIVE Urine Methadone Screen NEGATIVE Ur Propoxyphene Screen NEGATIVE Acetaminophen Ur Barbiturates Screen NEGATIVE Ur Tricyclics Screen NEGATIVE Ur Phencyclidine Scrn NEGATIVE Ur Amphetamine Screen POSITIVE H U Methamphetamines Scrn POSITIVE H U Benzodiazepines Scrn NEGATIVE Urine Cocaine Screen NEGATIVE U Cannabinoids Screen POSITIVE H Ethyl Alcohol PD MEDICAL DECISION MAKING - ED course Complexity details: re-evaluated patient, d/w patient ED course: Pt brought in as JONES. According to police report it does not appear that patient was doing anything that would put himself in danger but he appeared confused. Pt's presentation on arrival consistent with substance abuse. Seen several times here in ED with same presentations, always improved after few hours. Pt continues to deny SI/HI and was allowed to sober. Pt able to tell me about his recent spinal cord injury and his plans for the day to continue to work on increasing his mobility. Appears appropriate for discharge. 1140 - Pt states he was Brought here because people in the community are not used to seeing him in a wheelchair more worried about him. He denies concerns for substance abuse and does not want help today. He would like to leave. He denies suicidal or homicidal thoughts. He is alert and oriented x3. He wants a ride to a park where he hangs out during the day And plans to work on leg exercises. Departure - Departure Disposition: 01 Home, Self Care Clinical Impression: Substance abuse, Methamphetamine intoxication Condition: Stable Instructions: ED Drug Abuse General Comments: You were brought to the emergency department because the police were concerned about your safety. I am concerned that your use of substances including alcohol and methamphetamine is impairing your Judgment. You were not able to answer the police's questions clearly which is why they brought you to the hospital. Your symptoms have improved here and at this time you do not appear to be a danger to yourself or anyone else. If you change your mind and would like help with your substance abuse or have concerns about your safety please return to the emergency department. Discharge Date/Time: 07/04/22 14:33
[2022-07-04 09:06] LABS: ACETAMINOPHEN < 10 ug/mL (10-30); ALBUMIN 4.7 g/dL (3.2-5.5); ALBUMIN/GLOBULIN RATIO 1.3 (1.0-2.2); ALKALINE PHOSPHATASE 109 IU/L (42-121); ALT ALANINE AMINOTRANSFERASE 26 IU/L (10-60); AST ASPARTATE AMINOTRANSFERASE 25 IU/L (10-42); BILIRUBIN,TOTAL 0.7 mg/dL (0.2-1.0); BUN - BLOOD UREA NITROGEN 15 mg/dL (6-20); CALCIUM 9.9 mg/dL (8.5-10.3); CARBON DIOXIDE - CO2 24 mmol/L (21-32); CHLORIDE 101 mmol/L (101-111); CREATININE 0.7 mg/dL (0.6-1.2); GFR - MDRD 131 (>89); GLUCOSE 99 mg/dL (70-100); LIPASE 24 U/L (22-51); POTASSIUM 3.5 mmol/L (3.5-5.0); SALICYLATE < 6.0 mg/dL; SODIUM 140 mmol/L (135-145); TOTAL PROTEIN 8.4 g/dL (6.7-8.2)
[2022-07-04] MEDS ORDERED: OLANZapine ODT 5 MG TABLET TL ONE (09:43)
[2022-07-04 10:11] LABS: MUDS CUTOFF CONCENTRATIONS CUTOFF CONC BELOW:
[2022-07-04 10:12] LABS: BILIRUBIN,URINE NEGATIVE (NEGATIVE); GLUCOSE, URINE (UA) NEGATIVE (NEGATIVE); KETONES,URINE (UA) NEGATIVE (NEGATIVE); LEUKOCYTE ESTERASE, URINE MODERATE (NEGATIVE); NITRITE,URINE POSITIVE (NEGATIVE); OCCULT BLOOD,URINE LARGE (NEGATIVE); PROTEIN,URINE 30 mg/dL (NEGATIVE); UROBILINOGEN,URINE 0.2 (NORMAL) E.U./dL (NORMAL)
[2022-07-04 10:22] LABS: AMPHETAMINE SCREEN,URINE POSITIVE (NEGATIVE); BARBITURATE SCREEN,UR NEGATIVE (NEGATIVE); BENZODIAZEPINES SCREEN, URINE NEGATIVE (NEGATIVE); CLARITY,URINE SL. CLOUDY (CLEAR); COCAINE SCREEN URINE NEGATIVE (NEGATIVE); METHADONE SCREEN, URINE NEGATIVE (NEGATIVE); METHAMPHETAMINES SCREEN, URINE POSITIVE (NEGATIVE); OPIATE SCREEN, URINE NEGATIVE (NEGATIVE); OXYCODONE SCREEN, URINE NEGATIVE (NEGATIVE); PROPOXYPHENE SCREEN, URINE NEGATIVE (NEGATIVE); THC CANNABINOID SCREEN, URINE POSITIVE (NEGATIVE); TRICYCLIC ANTIDEPRESSANT,URINE NEGATIVE (NEGATIVE)
[2022-07-04 10:32] LABS: BACTERIA,URINE Moderate /HPF (None Seen); MUCUS,URINE Few Strands; SQUAMOUS EPITHELIAL CELL,UR FEW Squamous (<= Few)
[2022-07-04] MEDS ORDERED: CIPROFLOXACIN 250 MG TABLET PO STA ×2 (12:23→12:24)
[2022-07-04 13:53] VITALS: BP 118/77
--- NOTE | 2022-07-07 12:54 | ED Physician Documentation ---
ED Addendum - Addendum Addendum: 07/07/22 12:51 The patient's urine culture came back showing staph epidermidis. It is sensitive to doxycycline. He is allergic to penicillin. He had not been prescribed any medication for infection in the ER. I will prescribe doxycycline 100 mg twice a day. I will transmit this to the [facility] pharmacy and have nursing staff notify the patient. 07/07/22 12:53
== END 2022-07-04 14:33 | disposition home or self-care (01) ==
LOC: ED 08:25
DX: F15.129 Other stimulant abuse with intoxication, unspecified (principal); F17.200 Nicotine dependence, unspecified, uncomplicated
CPT/HCPCS: 36415; 80053; 80306; 80307; 80320; 80329; 81001; 83690; 84443; 85025; 87077; 87086; 87181; 93005; 99283; A9270; 81003

== ENCOUNTER 2022-07-11 13:21 | Outpatient (CLI) | payer MEDICAID | END 2022-07-11 13:22 | disposition left against medical advice (07) | LOC: EMS 13:21 | DX: Z03.89 Encounter for observation for other suspected diseases and conditions ruled out (principal) ==

== ENCOUNTER 2022-07-14 10:15 | Outpatient (CLI) | payer MEDICAID | END 2022-07-14 10:16 | disposition critical access hospital (66) | LOC: EMS 10:15 | DX: T83.84XA Pain due to genitourinary prosthetic devices, implants and grafts, initial encounter (principal) | CPT/HCPCS: A0425; A0429 ==

== ENCOUNTER 2022-07-17 22:29 | Outpatient (CLI) | payer MEDICAID | END 2022-07-17 22:30 | disposition critical access hospital (66) | LOC: EMS 22:29 | DX: R10.84 Generalized abdominal pain (principal); R39.89 Other symptoms and signs involving the genitourinary system; R45.1 Restlessness and agitation | CPT/HCPCS: A0425; A0429; A0999 ==

== ENCOUNTER 2022-07-17 22:47 | Emergency (ER) | payer MEDICAID ==
[2022-07-17] MEDS ORDERED: LORazepam 2 MG/ML VIAL IM STA (23:09)
--- NOTE | 2022-07-18 00:02 | ED Physician Documentation ---
PD HPI MALE - Stated complaint Stated Complaint: MALE - Chief complaint Chief Complaint: Abd Pain - History obtained from History obtained from: EMS - History of Present Illness Timing - onset: Unknown PD HPI MALE CONTRIB FACTORS: Indwelling catheter Recently seen: Emergency Dept - Additional information Additional information: BIBA. Patient has indwelling saenz catheter in place due to complications of recent vertebral fractures and spinal cord injury. 911 was called by passerby due to patient yelling in pain. ED railway station manager note indicates patient said his catheter wasn't draining and that he took methamphetamines today as well. By the time I was able to evaluate patient, he is yelling loudly, hyperkinetic, and incomprehensible. Since being discharged from [facility] three weeks ago, he has had eight [facility] ED visits (including this current ED visit). Review of Systems Unable to obtain: AMS, Uncooperative PD PAST MEDICAL HISTORY - Past Medical History Past Medical History: Yes Cardiovascular: None Respiratory: None Neuro: None Endocrine/Autoimmune: None GI: None : None HEENT: None Psych: Bipolar disorder, Post traumatic stress disorder Musculoskeletal: None Derm: None - Past Surgical History Past Surgical History: No Neuro: Other - Present Medications Home Medications: Ambulatory Orders Medication Instructions Recorded Confirmed OLANZapine [Zyprexa] 5 mg PO DAILY #30 tablet 02/24/22 Acetaminophen [Acetaminophen Extra 500 mg PO Q4HR PRN 06/27/22 06/27/22 Strength] methocarbamoL [Methocarbamol] 500 mg PO DAILY 06/27/22 06/27/22 polyethylene glycoL 3350 06/27/22 [Polyethylene Glycol 3350] Acetaminophen [Acetaminophen Extra 500 mg PO QID PRN #50 tablet 06/28/22 Strength] Meloxicam [Mobic] 7.5 mg PO BID 10 Days #20 tablet 06/28/22 Ciprofloxacin HCl [Cipro] 500 mg PO BID 14 Days #28 tablet 07/03/22 Doxycycline Hyclate 100 mg PO BID 7 Days #14 cap 07/07/22 - Allergies Allergies/Adverse Reactions: Allergies Allergy/AdvReac Type Severity Reaction Status Date / Time Penicillins Allergy Edema Verified 07/17/22 22:55 - Social History Does the pt smoke?: Yes Smoking Status: Current every day smoker Does the pt drink ETOH?: Yes Does the pt have substance abuse?: Yes - Immunizations Immunizations are current?: Yes Immunizations: TDAP >10years/unknown - POLST Patient has POLST: No POLST Status: Full Code PD ED PE NORMAL - Vitals Vital signs reviewed: Yes - General General: Well developed/nourished, Other (hyperkinetic, yelling at times but gibberish/incomprehensible) - HEENT HEENT: Atraumatic - Cardiac Cardiac: RRR - Respiratory Respiratory: No respiratory distress, Clear bilaterally - Abdomen Abdomen: Soft, Non tender Results - Vitals Vitals: Vital Signs - 24 hr 07/17/22 07/18/22 07/18/22 22:52 00:13 01:02 Temperature 36.5 C 36.8 C Heart Rate 94 104 H 110 H Respiratory 17 16 Rate Blood Pressure 117/94 H 120/70 147/91 H O2 Saturation 96 100 100 If not protocol : Oxygen Flow, liters/minute 07/18/22 07/18/22 07/18/22 01:39 01:55 02:10 Temperature 36.8 C Heart Rate 106 H 103 H 80 Respiratory 16 14 14 Rate Blood Pressure 116/77 116/77 125/109 H O2 Saturation 100 100 100 If not protocol : Oxygen Flow, liters/minute 07/18/22 07/18/22 07/18/22 02:15 02:25 02:40 Temperature 35.6 C L Heart Rate 93 99 82 Respiratory 16 16 14 Rate Blood Pressure 125/109 H 128/83 H O2 Saturation 100 100 100 If not protocol : Oxygen Flow, liters/minute 07/18/22 07/18/22 07/18/22 02:55 03:15 03:30 Temperature 36.9 C Heart Rate 86 71 97 Respiratory 14 16 16 Rate Blood Pressure 128/83 H 149/83 H 147/91 H O2 Saturation 100 100 99 If not protocol : Oxygen Flow, liters/minute 07/18/22 07/18/22 07/18/22 03:45 04:00 04:10 Temperature Heart Rate 89 75 87 Respiratory 14 14 16 Rate Blood Pressure 136/87 H 136/87 H O2 Saturation 98 100 99 If not protocol : Oxygen Flow, liters/minute 07/18/22 07/18/22 07/18/22 04:15 04:45 05:15 Temperature 37.0 C Heart Rate 71 109 H 81 Respiratory 18 16 14 Rate Blood Pressure 136/87 H 125/82 H 121/65 O2 Saturation 99 100 99 If not protocol : Oxygen Flow, liters/minute 07/18/22 07/18/22 07/18/22 05:45 06:15 07:15 Temperature 37.0 C Heart Rate 76 79 85 Respiratory 16 14 14 Rate Blood Pressure 127/65 110/72 114/81 H O2 Saturation 98 100 100 If not protocol : Oxygen Flow, liters/minute 07/18/22 07:30 Temperature Heart Rate 90 Respiratory 14 Rate Blood Pressure 104/55 L O2 Saturation 100 If not protocol 100 : Oxygen Flow, liters/minute Oxygen O2 Source Room air - Labs Labs: Laboratory Tests 07/17/22 07/17/22 07/18/22 23:50 23:50 07:18 WBC 11.0 H RBC 4.31 L Hgb 11.2 L Hct 35.8 L MCV 83.1 MCH 26.0 L MCHC 31.3 L RDW 13.6 Plt Count 379 MPV 9.1 Neut # (Auto) 7.5 H Lymph # (Auto) 2.0 Bonner # (Auto) 1.3 H Eos # (Auto) 0.1 Baso # (Auto) 0.1 Absolute Nucleated RBC 0.00 Nucleated RBC % 0.0 Sodium Potassium Chloride Carbon Dioxide Anion Gap BUN Creatinine Estimated GFR (MDRD) Glucose Lactic Acid Calcium Total Bilirubin AST ALT Alkaline Phosphatase Total Protein Albumin Globulin Albumin/Globulin Ratio Lipase Urine Color YELLOW Urine Clarity HAZY Urine pH 6.5 Ur Specific [place] 1.010 Urine Protein NEGATIVE Urine Glucose (UA) NEGATIVE Urine Ketones TRACE Urine Occult Blood MODERATE H Urine Nitrite POSITIVE H Urine Bilirubin NEGATIVE Urine Urobilinogen 0.2 (NORMAL) Ur Leukocyte Esterase LARGE H Urine RBC 6-10 H Urine WBC >25 H Ur Squamous Epith Cells NONE SEEN Urine Bacteria Few Ur Microscopic Review INDICATED Urine Culture Comments INDICATED Urine Opiates Screen NEGATIVE Ur Oxycodone Screen NEGATIVE Urine Methadone Screen NEGATIVE Ur Propoxyphene Screen NEGATIVE Ur Barbiturates Screen NEGATIVE Ur Tricyclics Screen NEGATIVE Ur Phencyclidine Scrn NEGATIVE Ur Amphetamine Screen POSITIVE H U Methamphetamines Scrn POSITIVE H U Benzodiazepines Scrn NEGATIVE Urine Cocaine Screen NEGATIVE U Cannabinoids Screen POSITIVE H Ethyl Alcohol 07/18/22 07/18/22 07/18/22 07:18 07:18 07:22 WBC RBC Hgb Hct MCV MCH MCHC RDW Plt Count MPV Neut # (Auto) Lymph # (Auto) Bonner # (Auto) Eos # (Auto) Baso # (Auto) Absolute Nucleated RBC Nucleated RBC % Sodium 141 Potassium 3.5 Chloride 103 Carbon Dioxide 27 Anion Gap 11.0 BUN 13 Creatinine 0.7 Estimated GFR (MDRD) 131 Glucose 100 Lactic Acid 0.8 Calcium 10.0 Total Bilirubin 0.5 AST 35 ALT 18 Alkaline Phosphatase 90 Total Protein 7.5 Albumin 4.3 Globulin 3.2 Albumin/Globulin Ratio 1.3 Lipase 24 Urine Color Urine Clarity Urine pH Ur Specific [place] Urine Protein Urine Glucose (UA) Urine Ketones Urine Occult Blood Urine Nitrite Urine Bilirubin Urine Urobilinogen Ur Leukocyte Esterase Urine RBC Urine WBC Ur Squamous Epith Cells Urine Bacteria Ur Microscopic Review Urine Culture Comments Urine Opiates Screen Ur Oxycodone Screen Urine Methadone Screen Ur Propoxyphene Screen Ur Barbiturates Screen Ur Tricyclics Screen Ur Phencyclidine Scrn Ur Amphetamine Screen U Methamphetamines Scrn U Benzodiazepines Scrn Urine Cocaine Screen U Cannabinoids Screen Ethyl Alcohol < 5.0 PD MEDICAL DECISION MAKING - ED course Complexity details: reviewed old records, reviewed results, re-evaluated patient, considered differential ED course: Due to rapidly increasing hyperkinetic behaviors and rapid transition from being able to communicate to the ED RN on triage process that he feels that his catheter is not draining and that he has used methamphetamines today to being yelling at times and not able to provide any appropriate/intelligible answers to any of my questions, he is given ativan 2mg IM so as to facilitate change of his saenz catheter. Unfortunately, his behaviors escalated and he required physical and chemical restraints due to trying to remove his catheter and trying to get out of the bed without assistance. He required several doses of different medications before adequate and lasting sedation could be achieved. Saenz catheter was changed out and over 500 cc urine output Care of patient turned over to Dr. Weston at end of my shift pending improvement in mental status such that he can be dispositioned appropriately
[2022-07-18 00:05] LABS: BILIRUBIN,URINE NEGATIVE (NEGATIVE); GLUCOSE, URINE (UA) NEGATIVE (NEGATIVE); KETONES,URINE (UA) TRACE mg/dL (NEGATIVE); LEUKOCYTE ESTERASE, URINE LARGE (NEGATIVE); NITRITE,URINE POSITIVE (NEGATIVE); OCCULT BLOOD,URINE MODERATE (NEGATIVE); PH,URINE 6.5 PH (5.0-7.5); PROTEIN,URINE NEGATIVE (NEGATIVE); UROBILINOGEN,URINE 0.2 (NORMAL) E.U./dL (NORMAL)
[2022-07-18 00:08] LABS: CLARITY,URINE HAZY (CLEAR)
[2022-07-18 00:14] LABS: BACTERIA,URINE Few /HPF (None Seen); SQUAMOUS EPITHELIAL CELL,UR NONE SEEN (<= Few); WBC,URINE >25 /HPF (0-3)
[2022-07-18] MEDS ORDERED: LORazepam 2 MG/ML VIAL IM STA ×2 (00:42→03:09)
[2022-07-18] MEDS ORDERED: LORazepam 2 MG/ML VIAL ONE (01:00)
--- NOTE | 2022-07-18 01:06 | ED Physician Documentation ---
Restraint [id number] - Immediate Situation Face to Face Evaluation Date: 07/18/22 Face to Face Evaluation Time: 01:04 Restraint Classification: Violent, physical, chemical Restraint Type: Soft extremity - Patient's Reaction & Behaviors Safety: Unable to Follow Commands Harm: Potential harm to self Other: Attempting removal of medically necessary device(s) - Behavioral Condition Attitude: Indifferent Behavior: Agitated Orientation: Disoriented to all (does not provide appropriate/comprehensible answers to any of my questions) Mood: Labile Behavioral Condition Comments: repeatedly trying to remove saenz catheter, turning and shifting in bed to the point of nearly falling off stretcher even with siderails up. - Evaluation Review of Systems: unobtainable due to not cooperative and incomprehensible answers Pertinent History/Illicit Drugs/Medications/Results: h/o methamphetamine use; ED scrummaster note indicates that patient told ED RN he (patient) used methamphetamines today. By the time of my evaluation of patient, he is not providing comprehensible answers and is hyperkinetic, occasionally yelling out incomprehensible words - Plan Need to Continue or Terminate Violent or Chemical Restraint: calm, cooperative, able to follow commands; behavior needs to be consistent with no longer likely to try to remove saenz catheter or else awake, alert, and oriented x 3 such that he can consent to or deny treatment including the catheter
[2022-07-18] MEDS ORDERED: OLANZapine 10 MG VIAL IM STA (01:17)
[2022-07-18] MEDS ORDERED: OLANZapine 10 MG VIAL IM ONE (01:18)
--- NOTE | 2022-07-18 01:50 | ED Physician Documentation ---
Restraint [id number] - Immediate Situation Face to Face Evaluation Date: 07/18/22 Face to Face Evaluation Time: 01:48 Restraint Classification: Violent, chemical Restraint Type: Soft extremity, Side rails X 4 - Patient's Reaction & Behaviors Safety: Non-compliant, Unable to Follow Commands Other: Resting quietly - Behavioral Condition Attitude: Indifferent Behavior: Other (asleep) Orientation: Person Mood: Other (asleep) - Evaluation Review of Systems: unobtainable due to not cooperative and incomprehensible answers Pertinent History/Illicit Drugs/Medications/Results: h/o methamphetamine use; ED budget assistant note indicates that patient told ED RN he (patient) used methamphetamines today. By the time of my evaluation of patient, he is not providing comprehensible answers and is hyperkinetic, occasionally yelling out incomprehensible words - Plan Need to Continue or Terminate Violent or Chemical Restraint: will remove restraints within an hour if patient does not have recurrence of impulsive behaviors such as trying to remove catheter or trying to get out of the bed
--- NOTE | 2022-07-18 03:34 | ED Physician Documentation ---
Restraint [id number] - Immediate Situation Face to Face Evaluation Date: 07/18/22 Face to Face Evaluation Time: 03:25 Restraint Classification: Violent, physical, chemical Restraint Type: Soft extremity, Side rails X 4 - Patient's Reaction & Behaviors Safety: Unable to Follow Commands Other: Resting quietly - Behavioral Condition Attitude: Indifferent Behavior: Withdrawn Orientation: Person Mood: Labile - Evaluation Review of Systems: unobtainable due to not cooperative and incomprehensible answers Pertinent History/Illicit Drugs/Medications/Results: h/o methamphetamine use; ED whiteprinting machine operator note indicates that patient told ED RN he (patient) used methamphetamines today. By the time of my evaluation of patient, he is not providing comprehensible answers and is hyperkinetic, occasionally yelling out incomprehensible words - Plan Need to Continue or Terminate Violent or Chemical Restraint: adequate period of calm and cooperative behavior so as to demonstrate ability to follow simple commands and not try to remove saenz catheter or get out of the bed without assistance
[2022-07-18 07:24] LABS: BASOPHILS # (AUTO) 0.1 10^3/uL (0.0-0.1); EOSINOPHILS # (AUTO) 0.1 10^3/uL (0.0-0.7); EOSINOPHILS % (AUTO) 1.2 %; HCT - HEMATOCRIT 35.8 % (42.0-52.0); HGB - HEMOGLOBIN 11.2 g/dL (14.0-18.0); LYMPHOCYTES % (AUTO) 17.9 %; MEAN CORPUSCULAR HGB CONC 31.3 g/dL (32.0-36.0); MEAN CORPUSCULAR VOLUME 83.1 fL (80.0-94.0); MEAN PLATELET VOLUME 9.1 fL (7.4-11.4); MONOCYTES # (AUTO) 1.3 10^3/uL (0.0-1.0); MONOCYTES % (AUTO) 11.6 %; NEUTROPHILS # (AUTO) 7.5 10^3/uL (1.5-6.6); PLT - PLATELET COUNT 379 10^3/uL (130-450); RED BLOOD COUNT 4.31 10^6/uL (4.70-6.10); RED CELL DISTRIBUTION WIDTH 13.6 % (12.0-15.0)
[2022-07-18 07:28] LABS: MUDS CUTOFF CONCENTRATIONS CUTOFF CONC BELOW:
[2022-07-18 07:39] LABS: ALBUMIN 4.3 g/dL (3.2-5.5); ALBUMIN/GLOBULIN RATIO 1.3 (1.0-2.2); BILIRUBIN,TOTAL 0.5 mg/dL (0.2-1.0); CREATININE 0.7 mg/dL (0.6-1.2); POTASSIUM 3.5 mmol/L (3.5-5.0); TOTAL PROTEIN 7.5 g/dL (6.7-8.2)
[2022-07-18 07:49] LABS: AMPHETAMINE SCREEN,URINE POSITIVE (NEGATIVE); COCAINE SCREEN URINE NEGATIVE (NEGATIVE); METHAMPHETAMINES SCREEN, URINE POSITIVE (NEGATIVE); OPIATE SCREEN, URINE NEGATIVE (NEGATIVE); THC CANNABINOID SCREEN, URINE POSITIVE (NEGATIVE)
[2022-07-18 07:50] LABS: BARBITURATE SCREEN,UR NEGATIVE (NEGATIVE); BENZODIAZEPINES SCREEN, URINE NEGATIVE (NEGATIVE); METHADONE SCREEN, URINE NEGATIVE (NEGATIVE); OXYCODONE SCREEN, URINE NEGATIVE (NEGATIVE); PROPOXYPHENE SCREEN, URINE NEGATIVE (NEGATIVE); TRICYCLIC ANTIDEPRESSANT,URINE NEGATIVE (NEGATIVE)
[2022-07-18 11:17] VITALS: BP 104/78
== END 2022-07-18 11:57 | disposition home or self-care (01) ==
LOC: ED 22:47
DX: T83.098A Other mechanical complication of other urinary catheter, initial encounter (principal); Y84.9 Medical procedure, unspecified as the cause of abnormal reaction of the patient, or of later complication, without mention of misadventure at the time of the procedure; Z78.1 Physical restraint status; R45.6 Violent behavior; F17.200 Nicotine dependence, unspecified, uncomplicated
CPT/HCPCS: 36415; 51702; 51798; 80053; 80306; 80320; 81001; 83605; 83690; 85025; 87077; 87086; 87181; 96372; 99281; 99285; J2060; 81003

== ENCOUNTER 2022-07-22 09:15 | Outpatient (CLI) | payer MEDICAID | END 2022-07-22 09:16 | disposition critical access hospital (66) | LOC: EMS 09:15 | DX: T83.84XA Pain due to genitourinary prosthetic devices, implants and grafts, initial encounter (principal); R10.30 Lower abdominal pain, unspecified | CPT/HCPCS: A0425; A0429; A0999 ==

== ENCOUNTER 2022-07-22 09:34 | Emergency (ER) | payer MEDICAID ==
--- NOTE | 2022-07-22 09:47 | ED Physician Documentation ---
PD HPI MALE - Stated complaint Stated Complaint: MALE - Chief complaint Chief Complaint: Abd Pain - History obtained from History obtained from: Patient - History of Present Illness Timing - onset: Last night, Yesterday Timing - details: Gradual onset, Still present (worse output today and feeling lower abd/bladder cramping.) Associated symptoms: Unable to urinate, Saenz problem (not draining) PD HPI MALE CONTRIB FACTORS: Other (paraplegic.) Recently seen: Emergency Dept (for similar troubles with saenz drainage. Dx with UTI and Rx antibiotics.) Review of Systems Constitutional: denies: Fever, Chills GI: reports: Abdominal Pain, Nausea. denies: Vomiting, Diarrhea : reports: Unable to Void (saenz not draining) PD PAST MEDICAL HISTORY - Past Medical History Cardiovascular: None Respiratory: None Neuro: Other (partial paraplegia. ) Endocrine/Autoimmune: None GI: None : None HEENT: None Psych: Bipolar disorder, Post traumatic stress disorder Musculoskeletal: None Derm: None - Past Surgical History Past Surgical History: No Neuro: Other - Present Medications Home Medications: Ambulatory Orders Medication Instructions Recorded Confirmed OLANZapine [Zyprexa] 5 mg PO DAILY #30 tablet 02/24/22 Acetaminophen [Acetaminophen Extra 500 mg PO Q4HR PRN 06/27/22 06/27/22 Strength] methocarbamoL [Methocarbamol] 500 mg PO DAILY 06/27/22 06/27/22 polyethylene glycoL 3350 06/27/22 [Polyethylene Glycol 3350] Acetaminophen [Acetaminophen Extra 500 mg PO QID PRN #50 tablet 06/28/22 Strength] Meloxicam [Mobic] 7.5 mg PO BID 10 Days #20 tablet 06/28/22 Ciprofloxacin HCl [Cipro] 500 mg PO BID 14 Days #28 tablet 07/03/22 Doxycycline Hyclate 100 mg PO BID 7 Days #14 cap 07/07/22 Sulfamethox/Trimeth 800/160 1 each PO BID #14 tablet 07/18/22 [Bactrim Ds 800/160] - Allergies Allergies/Adverse Reactions: Allergies Allergy/AdvReac Type Severity Reaction Status Date / Time Penicillins Allergy Edema Verified 07/22/22 09:42 - Social History Does the pt smoke?: Yes Smoking Status: Current every day smoker Does the pt drink ETOH?: Yes Does the pt have substance abuse?: Yes - Immunizations Immunizations are current?: Yes Immunizations: TDAP >10years/unknown - POLST Patient has POLST: No POLST Status: Full Code PD ED PE NORMAL - Vitals Vital signs reviewed: Yes - General General: Well developed/nourished, Other (appears anxious and uncomfortable due to full bladder/lower abd pain. ) - Abdomen Abdomen: Normal bowel sounds, Soft, Other (fullness and tenderness of bladder area. Saenz in place and minimal urine in leg bag, and what is there is cloudy/sedimented. ) Results - Vitals Vitals: Oxygen O2 Source Room air PD MEDICAL DECISION MAKING - ED course Complexity details: reviewed old records, considered differential (nursing changed out saenz, removing clogged one and replacing with new, with good urine output over 500 ml. Patient feels much better. ), d/w patient Departure - Departure Disposition: 01 Home, Self Care Clinical Impression: Saenz catheter problem Qualifiers: Encounter type: initial encounter Qualified Code(s): T83.9XXA - Unspecified complication of genitourinary prosthetic device, implant and graft, initial encounter Condition: Stable Record reviewed to determine appropriate education?: Yes Comments: The new catheter appears to be draining appropriately. Continue with normal catheter care. Stay well-hydrated. Return as needed. Discharge Date/Time: 07/22/22 10:38
[2022-07-22] MEDS ORDERED: LORazepam 1 MG TABLET PO STA (09:51)
[2022-07-22] MEDS ORDERED: LIDOCAINE 2% URO-JET 5 ML SYRINGE UR STA (09:51)
[2022-07-22 10:03] VITALS: BP 122/75
== END 2022-07-22 10:38 | disposition home or self-care (01) ==
LOC: EDUNIT# → ED 09:34
DX: T83.9XXA Unspecified complication of genitourinary prosthetic device, implant and graft, initial encounter (principal); G82.20 Paraplegia, unspecified; F17.200 Nicotine dependence, unspecified, uncomplicated
CPT/HCPCS: 51702; 99282; 99283; J8499

== ENCOUNTER 2022-07-30 02:11 | Emergency (ER) | payer MEDICAID ==
--- NOTE | 2022-07-30 02:24 | ED Physician Documentation ---
History of Present Illness - Stated complaint Stated Complaint: MALE /SWOLLEN FEET - Chief complaint Chief Complaint: General - History obtained from History obtained from: Patient, EMS - History of Present Illness Timing: Unknown - Additonal information Additional information: MARS. Patient c/o BLE numbness. When I ask him why he appears to be in pain, he says he has pain BLE. He tells me these symptoms have been ongoing since back injury few months ago. He is scattered in providing any information regarding HPI/ROS, mostly talking in terms of symptoms he has had for weeks/months and unable to explain (despite my prompting) what is different tonight that resulted in this ED visit. Patient is wheelchair-bound since 05/27/22 when he was found to have low verterbral fractures that requires surgical intervention; he was evaluated in this ED 05/27/22, transferred to [facility]. He returned to this ED ([facility]) 06/27/22 the day he was discharged from [facility], and tonight is his tenth [facility] ED visit since being discharged from [facility]. His most recent T+R from [facility] ED was 07/22/22 when he had symptoms related to saenz catheter blockage which resolved when catheter was changed in ED. Review of Systems Unable to obtain: Other (most answers to my HPI/ROS questions are unrelated to the questions asked; ROS limited and of questionable reliability) Constitutional: denies: Chills, Sweats Musculoskeletal: reports: Extremity pain Neurologic: reports: Numbness (BLE) PD PAST MEDICAL HISTORY - Past Medical History Past Medical History: Yes Cardiovascular: None Respiratory: None Neuro: Other Endocrine/Autoimmune: None GI: None : None HEENT: None Psych: Bipolar disorder, Post traumatic stress disorder Musculoskeletal: None Derm: None - Past Surgical History Past Surgical History: No Ortho: Spine surgery Neuro: Other - Present Medications Home Medications: Ambulatory Orders Medication Instructions Recorded Confirmed OLANZapine [Zyprexa] 5 mg PO DAILY #30 tablet 02/24/22 Acetaminophen [Acetaminophen Extra 500 mg PO Q4HR PRN 06/27/22 06/27/22 Strength] methocarbamoL [Methocarbamol] 500 mg PO DAILY 06/27/22 06/27/22 polyethylene glycoL 3350 06/27/22 [Polyethylene Glycol 3350] Acetaminophen [Acetaminophen Extra 500 mg PO QID PRN #50 tablet 06/28/22 Strength] Meloxicam [Mobic] 7.5 mg PO BID 10 Days #20 tablet 06/28/22 Ciprofloxacin HCl [Cipro] 500 mg PO BID 14 Days #28 tablet 07/03/22 Doxycycline Hyclate 100 mg PO BID 7 Days #14 cap 07/07/22 Sulfamethox/Trimeth 800/160 1 each PO BID #14 tablet 07/18/22 [Bactrim Ds 800/160] Sulfamethox/Trimeth 800/160 1 each PO BID #14 tablet 07/30/22 [Bactrim Ds 800/160] - Allergies Allergies/Adverse Reactions: Allergies Allergy/AdvReac Type Severity Reaction Status Date / Time Penicillins Allergy Edema Verified 07/30/22 02:22 - Social History Does the pt smoke?: Yes Smoking Status: Current every day smoker Does the pt drink ETOH?: Yes Does the pt have substance abuse?: Yes - Immunizations Immunizations are current?: Yes Immunizations: TDAP >10years/unknown - POLST Patient has POLST: No POLST Status: Full Code PD ED PE NORMAL - Vitals Vital signs reviewed: Yes - General General: Alert and oriented X 3 - Cardiac Cardiac: RRR, No murmur - Respiratory Respiratory: No respiratory distress, Clear bilaterally - Abdomen Abdomen: Soft, Non tender Results - Vitals Vitals: Oxygen O2 Source Room air - Labs Labs: Microbiology 07/30/22 03:45 Urine Culture - Preliminary Urine,Catheterized Laboratory Tests 07/30/22 03:45 Urine Color YELLOW Urine Clarity SL. CLOUDY Urine pH 6.5 Ur Specific [place] 1.015 Urine Protein NEGATIVE Urine Glucose (UA) NEGATIVE Urine Ketones NEGATIVE Urine Occult Blood SMALL H Urine Nitrite POSITIVE H Urine Bilirubin NEGATIVE Urine Urobilinogen 0.2 (NORMAL) Ur Leukocyte Esterase LARGE H Urine RBC 0-5 Urine WBC >25 H Ur Squamous Epith Cells RARE Squamous Urine Bacteria Moderate H Ur Microscopic Review INDICATED Urine Culture Comments INDICATED PD MEDICAL DECISION MAKING - ED course Complexity details: reviewed old records, reviewed results, re-evaluated patient, considered differential, d/w patient ED course: Patient appears to be in waxing and waning discomfort which resolved after his indwelling saenz cather was changed and he was in NAD for remainder of ED observation. Departure - Departure Disposition: 01 Home, Self Care Clinical Impression: Encounter for Saenz catheter replacement Condition: Good Instructions: ED Catheter Care Saenz Prescriptions: Sulfamethox/Trimeth 800/160 [Bactrim Ds 800/160] 1 each PO BID #14 tablet Comments: Your catheter was replaced in the ER and this seems to have resulted in improvement in your symptoms. You are being provided a prescription for an antibiotic , as your urine test suggests an infection. Discharge Date/Time: 07/30/22 06:51
[2022-07-30 03:55] LABS: BILIRUBIN,URINE NEGATIVE (NEGATIVE); GLUCOSE, URINE (UA) NEGATIVE (NEGATIVE); KETONES,URINE (UA) NEGATIVE (NEGATIVE); LEUKOCYTE ESTERASE, URINE LARGE (NEGATIVE); NITRITE,URINE POSITIVE (NEGATIVE); OCCULT BLOOD,URINE SMALL (NEGATIVE); PH,URINE 6.5 PH (5.0-7.5); PROTEIN,URINE NEGATIVE (NEGATIVE); UROBILINOGEN,URINE 0.2 (NORMAL) E.U./dL (NORMAL)
[2022-07-30 03:59] LABS: CLARITY,URINE SL. CLOUDY (CLEAR)
[2022-07-30 04:04] LABS: BACTERIA,URINE Moderate /HPF (None Seen); RBC,URINE 0-5 /HPF (0-5); SQUAMOUS EPITHELIAL CELL,UR RARE Squamous (<= Few); WBC,URINE >25 /HPF (0-3)
[2022-07-30] MEDS ORDERED: SULFAMETH/TRIMETH DS 800/160 MG TABLET PO STA (05:42)
[2022-07-30 06:52] VITALS: BP 109/65
== END 2022-07-30 06:51 | disposition home or self-care (01) ==
LOC: EDUNIT# → ED 02:11
DX: Z46.6 Encounter for fitting and adjustment of urinary device (principal); F17.200 Nicotine dependence, unspecified, uncomplicated
CPT/HCPCS: 51702; 51798; 81001; 87077; 87086; 87181; 99282; 99283; A9270; 81003

== ENCOUNTER → 2022-07-30 | Outpatient (CLI) | payer MEDICAID | END | disposition critical access hospital (66) | LOC: EMS 01:53 | DX: R20.0 Anesthesia of skin (principal); R20.2 Paresthesia of skin; M79.672 Pain in left foot; M79.671 Pain in right foot; M79.642 Pain in left hand; M79.641 Pain in right hand; Z99.3 Dependence on wheelchair | CPT/HCPCS: A0425; A0429; A0999 ==

== ENCOUNTER 2022-08-04 04:52 | Emergency (ER) | payer MEDICAID ==
[2022-08-04 05:04] VITALS: BP 137/93
--- NOTE | 2022-08-04 05:13 | ED Physician Documentation ---
History of Present Illness - Stated complaint Stated Complaint: MALE - Chief complaint Chief Complaint: UTI - History obtained from History obtained from: Patient - Additonal information Additional information: Patient presents to the emergency department chief complaint of "my catheter is hurting me". He complains of lower abdominal pain and states that he is urinating around his catheter. He states he is tired of having the catheter in and he wants it out. He is quite sure that he can urinate by himself without the catheter in. No fevers or chills. No nausea or vomiting. No shakes. No other complaints at this time. 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 Review of Systems Ten Systems: 10 systems reviewed and negative Constitutional: reports: Reviewed and negative Eyes: reports: Reviewed and negative Ears: reports: Reviewed and negative Nose: reports: Reviewed and negative Throat: reports: Reviewed and negative Cardiac: reports: Reviewed and negative Respiratory: reports: Reviewed and negative GI: reports: Abdominal Pain : reports: Reviewed and negative Skin: reports: Reviewed and negative Musculoskeletal: reports: Reviewed and negative Neurologic: reports: Reviewed and negative Psychiatric: reports: Reviewed and negative Endocrine: reports: Reviewed and negative Immunocompromised: reports: Reviewed and negative PD PAST MEDICAL HISTORY - Past Medical History Cardiovascular: None Respiratory: None Neuro: Other Endocrine/Autoimmune: None GI: None : None HEENT: None Psych: Bipolar disorder, Post traumatic stress disorder Musculoskeletal: None Derm: None - Past Surgical History Past Surgical History: No Ortho: Spine surgery Neuro: Other - Present Medications Home Medications: Ambulatory Orders Medication Instructions Recorded Confirmed OLANZapine [Zyprexa] 5 mg PO DAILY #30 tablet 02/24/22 Acetaminophen [Acetaminophen Extra 500 mg PO Q4HR PRN 06/27/22 06/27/22 Strength] methocarbamoL [Methocarbamol] 500 mg PO DAILY 06/27/22 06/27/22 polyethylene glycoL 3350 06/27/22 [Polyethylene Glycol 3350] Acetaminophen [Acetaminophen Extra 500 mg PO QID PRN #50 tablet 06/28/22 Strength] Meloxicam [Mobic] 7.5 mg PO BID 10 Days #20 tablet 06/28/22 Ciprofloxacin HCl [Cipro] 500 mg PO BID 14 Days #28 tablet 07/03/22 Doxycycline Hyclate 100 mg PO BID 7 Days #14 cap 07/07/22 Sulfamethox/Trimeth 800/160 1 each PO BID #14 tablet 07/18/22 [Bactrim Ds 800/160] Sulfamethox/Trimeth 800/160 1 each PO BID #14 tablet 07/30/22 [Bactrim Ds 800/160] - Allergies Allergies/Adverse Reactions: Allergies Allergy/AdvReac Type Severity Reaction Status Date / Time Penicillins Allergy Edema Verified 08/04/22 05:05 - Social History Does the pt smoke?: Yes Smoking Status: Current every day smoker Does the pt drink ETOH?: Yes Does the pt have substance abuse?: Yes - Immunizations Immunizations are current?: Yes Immunizations: TDAP >10years/unknown - POLST Patient has POLST: No POLST Status: Full Code PD ED PE NORMAL - Vitals Vital signs reviewed: Yes - General General: Other (The patient is intermittently sleeping and awake, yelling in pain.) - HEENT HEENT: Atraumatic, PERRL, EOMI, Moist mucous membranes - Neck Neck: Supple, no meningeal sign - Cardiac Cardiac: RRR, No murmur - Respiratory Respiratory: No respiratory distress - Abdomen Abdomen: Soft, Non distended, Other (Suprapubic tenderness, no rebound or guarding. Palpable bladder distention.) - Derm Derm: Normal color, Warm and dry, No rash - Extremities Extremities: No deformity, No edema - Neuro Neuro: Alert and oriented X 3 - Psych Psych: Normal mood, Normal affect Results - Vitals Vitals: Vital Signs - 24 hr 08/04/22 05:00 Temperature 36.4 C L Heart Rate 98 Respiratory 18 Rate Blood Pressure 137/93 H O2 Saturation 100 Oxygen O2 Source Room air PD MEDICAL DECISION MAKING - ED course Complexity details: considered differential, d/w patient ED course: The patient demanded that the Merino catheter be taken out, even after it was explained to him that he may not be able to fully evacuate his bladder, which may results in urinary retention and increasingly severe discomfort, and may also results in a urinary tract infection. The patient stated he wanted the catheter removed and he. This was done and the patient promptly urinated over 1000 cc spontaneously through his penis/urethra. The patient was deemed stable for discharge. I have advised him that should he develop symptoms of urinary retention or infection, he will need to be medically reevaluated. Departure - Departure Disposition: 01 Home, Self Care Clinical Impression: Urinary retention, Paraplegia Condition: Stable Instructions: ED Retention Urinary Male Comments: Your catheter has been removed today at your request. Although you state you can urinate without the catheter, given the paralysis of your legs, you may not be able to completely get the urine out of your bladder. If the urine begins to progressively build up, this may become quite uncomfortable for you, And will necessitate having a catheter put back in again. If you develop pain and burning when you urinate, along with fevers, you may have a urinary tract infection and should be seen medically again. Otherwise, please follow-up with your doctor. Discharge Date/Time: 08/04/22 05:17
== END 2022-08-04 05:17 | disposition home or self-care (01) ==
LOC: ED 04:52
DX: T83.84XA Pain due to genitourinary prosthetic devices, implants and grafts, initial encounter (principal); G82.20 Paraplegia, unspecified; Y84.9 Medical procedure, unspecified as the cause of abnormal reaction of the patient, or of later complication, without mention of misadventure at the time of the procedure; F17.200 Nicotine dependence, unspecified, uncomplicated
CPT/HCPCS: 99281; 99282

== ENCOUNTER 2022-08-08 14:23 | Outpatient (CLI) | payer MEDICAID | END 2022-08-08 23:59 | disposition home or self-care (01) | LOC: LAB.N 14:23 | PROVIDERS: ATTEND Registered Nurse | DX: R33.9 Retention of urine, unspecified (principal) | CPT/HCPCS: 87077; 87086; 87181 ==

== ENCOUNTER 2022-08-23 10:52 | Emergency (ER) | payer MEDICAID ==
[2022-08-23 11:15] VITALS: BP 115/74
== END 2022-08-23 11:45 | disposition left against medical advice (07) ==
LOC: ED 10:52
DX: Z53.21 Procedure and treatment not carried out due to patient leaving prior to being seen by health care provider (principal)

== ENCOUNTER 2022-08-31 10:13 | Emergency (ER) | payer MEDICAID ==
--- NOTE | 2022-08-31 10:58 | ED Physician Documentation ---
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 He states he does not seem to be draining has was normal. He does not have any fever, chills, abdominal pain, nausea or vomiting, or pelvic pain. He is requesting that the Merino catheter be removed and that he straight caths himself. He states he Has done this in the past for period of time and does void sometimes on his own and has to straight cath sometimes but he will only managed about a week without a catheter last time. He does want to try again however and declines reinsertion of the urinary catheter. Review of Systems Ten Systems: 10 systems reviewed and negative (Except as noted in HPI) PD PAST MEDICAL HISTORY - Past Medical History Cardiovascular: None Respiratory: None Neuro: Other Endocrine/Autoimmune: None GI: None : Retention (With indwelling catheter) HEENT: None Psych: Bipolar disorder, Post traumatic stress disorder Musculoskeletal: None Derm: None - Past Surgical History Past Surgical History: No Ortho: Spine surgery Neuro: Other - Present Medications Home Medications: Ambulatory Orders Medication Instructions Recorded Confirmed OLANZapine [Zyprexa] 5 mg PO DAILY #30 tablet 02/24/22 Acetaminophen [Acetaminophen Extra 500 mg PO Q4HR PRN 06/27/22 06/27/22 Strength] methocarbamoL [Methocarbamol] 500 mg PO DAILY 06/27/22 06/27/22 polyethylene glycoL 3350 06/27/22 [Polyethylene Glycol 3350] Acetaminophen [Acetaminophen Extra 500 mg PO QID PRN #50 tablet 06/28/22 Strength] Meloxicam [Mobic] 7.5 mg PO BID 10 Days #20 tablet 06/28/22 Ciprofloxacin HCl [Cipro] 500 mg PO BID 14 Days #28 tablet 07/03/22 Doxycycline Hyclate 100 mg PO BID 7 Days #14 cap 07/07/22 Sulfamethox/Trimeth 800/160 1 each PO BID #14 tablet 07/18/22 [Bactrim Ds 800/160] Sulfamethox/Trimeth 800/160 1 each PO BID #14 tablet 07/30/22 [Bactrim Ds 800/160] Clindamycin [Cleocin] 300 mg ORAL TID 7 Days #42 cap 08/18/22 - Allergies Allergies/Adverse Reactions: Allergies Allergy/AdvReac Type Severity Reaction Status Date / Time Penicillins Allergy Edema Verified 08/31/22 10:25 - Social History Does the pt smoke?: Yes Smoking Status: Current every day smoker Does the pt drink ETOH?: Yes Does the pt have substance abuse?: Yes - Immunizations Immunizations are current?: Yes Immunizations: TDAP >10years/unknown - POLST Patient has POLST: No POLST Status: Full Code PD ED PE NORMAL - Vitals Vital signs reviewed: Yes - General General: Alert and oriented X 3, No acute distress, Well developed/nourished - HEENT HEENT: Atraumatic, Moist mucous membranes, Pharynx benign - Cardiac Cardiac: RRR, No murmur, Strong equal pulses - Respiratory Respiratory: No respiratory distress, Clear bilaterally - Abdomen Abdomen: Normal bowel sounds, Soft, Non tender, Non distended - Derm Derm: Normal color, Warm and dry, No rash - Extremities Extremities: No deformity, No edema - Neuro Neuro: Alert and oriented X 3 Eye Opening: Spontaneous Motor: Obeys Commands Verbal: Oriented GCS Score: 15 - Psych Psych: Normal mood, Normal affect Results - Vitals Vitals: Vital Signs - 24 hr 08/31/22 10:24 Temperature 36.8 C Heart Rate 115 H Respiratory 20 Rate Blood Pressure 145/84 H O2 Saturation 100 Oxygen O2 Source Room air PD MEDICAL DECISION MAKING - ED course Complexity details: reviewed old records, re-evaluated patient, considered differential, d/w patient ED course: Patient presented with concerns for occlusion of the urinary catheter. The catheter was removed and plan to reinsert however patient requested that it not be reinserted. He was able to void after the removal of the urinary catheter with a PVR of about 50. He has no clinical signs of infection and is otherwise feeling well therefore we will not remove the catheter at his request and he was provided with some supplies for straight cathing. He was instructed on appropriate history casting procedures including sanitation and catheter management. He was advised that if he was not able to void or he was having difficulty straight cathing that he would need to return to the hospital for Replacement of indwelling urinary catheter. I also reviewed return precautions if he had signs or symptoms of a urinary tract infection. Departure - Departure Disposition: 01 Home, Self Care Clinical Impression: Urinary retention Condition: Good Comments: At your request, we did remove the indwelling urinary catheter and we discussed appropriate straight cathing in between voiding to ensure that you are emptying your bladder completely. If you are unable to straight cath or unable to void or are having any signs of urinary tract infection, please return to the ER
[2022-08-31 11:42] VITALS: BP 126/80
== END 2022-08-31 12:58 | disposition home or self-care (01) ==
LOC: ED 10:13
DX: R33.9 Retention of urine, unspecified (principal); T83.091A Other mechanical complication of indwelling urethral catheter, initial encounter; G82.20 Paraplegia, unspecified; F17.200 Nicotine dependence, unspecified, uncomplicated
CPT/HCPCS: 51702; 99282; 99283

== ENCOUNTER 2022-09-07 08:59 | Emergency (ER) | payer MEDICAID ==
[2022-09-07 09:08] VITALS: BP 119/85
--- NOTE | 2022-09-07 09:27 | ED Physician Documentation ---
PD HPI ABD PAIN - Stated complaint Stated Complaint: ABD PX - Chief complaint Chief Complaint: Abd Pain - History obtained from History obtained from: Patient - Additional information Additional information: 31-year-old with paraplegia presents with severe penile pain starting this morning. He does not recall when his Merino catheter was last replaced. He does have a neurogenic bladder related to same. Review of Systems Constitutional: denies: Fever, Chills Musculoskeletal: denies: Neck pain, Back pain PD PAST MEDICAL HISTORY - Past Medical History Cardiovascular: None Respiratory: None Neuro: Other Endocrine/Autoimmune: None GI: None : Retention (With indwelling catheter) HEENT: None Psych: Bipolar disorder, Post traumatic stress disorder Musculoskeletal: None Derm: None - Past Surgical History Past Surgical History: No Ortho: Spine surgery Neuro: Other - Present Medications Home Medications: Ambulatory Orders Medication Instructions Recorded Confirmed OLANZapine [Zyprexa] 5 mg PO DAILY #30 tablet 02/24/22 Acetaminophen [Acetaminophen Extra 500 mg PO Q4HR PRN 06/27/22 06/27/22 Strength] methocarbamoL [Methocarbamol] 500 mg PO DAILY 06/27/22 06/27/22 polyethylene glycoL 3350 06/27/22 [Polyethylene Glycol 3350] Acetaminophen [Acetaminophen Extra 500 mg PO QID PRN #50 tablet 06/28/22 Strength] Meloxicam [Mobic] 7.5 mg PO BID 10 Days #20 tablet 06/28/22 Ciprofloxacin HCl [Cipro] 500 mg PO BID 14 Days #28 tablet 07/03/22 Doxycycline Hyclate 100 mg PO BID 7 Days #14 cap 07/07/22 Sulfamethox/Trimeth 800/160 1 each PO BID #14 tablet 07/18/22 [Bactrim Ds 800/160] Sulfamethox/Trimeth 800/160 1 each PO BID #14 tablet 07/30/22 [Bactrim Ds 800/160] Clindamycin [Cleocin] 300 mg ORAL TID 7 Days #42 cap 08/18/22 - Allergies Allergies/Adverse Reactions: Allergies Allergy/AdvReac Type Severity Reaction Status Date / Time Penicillins Allergy Edema Verified 09/07/22 09:08 - Social History Does the pt smoke?: Yes Smoking Status: Current every day smoker Does the pt drink ETOH?: Yes Does the pt have substance abuse?: Yes - Immunizations Immunizations are current?: Yes Immunizations: TDAP >10years/unknown - POLST Patient has POLST: No POLST Status: Full Code PD ED PE NORMAL - Vitals Vital signs reviewed: Yes - General General: Alert and oriented X 3, No acute distress - Abdomen Abdomen: Other (Distended lower abdomen with bedside ultrasound showing a dilated bladder despite Merino being in place.) - Neuro Neuro: Alert and oriented X 3, Normal speech Results - Vitals Vitals: Vital Signs - 24 hr 09/07/ 09:04 Temperature 36.4 C L Heart Rate 105 H Respiratory 16 Rate Blood Pressure 119/85 H O2 Saturation 97 Oxygen O2 Source Room air PD MEDICAL DECISION MAKING - ED course ED course: He presents with a clogged Merino catheter that is not draining. Initially I tried to flush it, but it was too clogged to even flush so it was replaced with resolution of his symptoms. Departure - Departure Disposition: 01 Home, Self Care Clinical Impression: Merino catheter problem Condition: Good Record reviewed to determine appropriate education?: Yes Instructions: ED Catheter Care Merino
== END 2022-09-07 09:32 | disposition home or self-care (01) ==
LOC: ED 08:59
DX: N48.89 Other specified disorders of penis (principal); T83.098A Other mechanical complication of other urinary catheter, initial encounter; Y73.8 Miscellaneous gastroenterology and urology devices associated with adverse incidents, not elsewhere classified; F17.200 Nicotine dependence, unspecified, uncomplicated
CPT/HCPCS: 99281; 99282

== ENCOUNTER 2022-09-08 09:38 | Emergency (ER) | payer MEDICAID ==
[2022-09-08 09:45] VITALS: BP 131/79
--- NOTE | 2022-09-08 09:58 | ED Physician Documentation ---
PD HPI MALE - Stated complaint Stated Complaint: CATH ISSUE - Chief complaint Chief Complaint: Abd Pain - History obtained from History obtained from: Patient - History of Present Illness Timing - onset: Today (he has had troubles with urinary retention for awhile (like 6 months) with intermittent catheterization need and indwelling saenz for short times. He had saenz replaced yesterday and states there is some blood in output and poor drainage today. he is adamantly requesting saenz removal/ not replaced.) Timing - duration: Months (6) Timing - details: Intermittant Associated symptoms: Unable to urinate, Saenz problem (some blood and less drainage from the saenz this morning, with feeling of bladder fullness despite catheter. Pain in urethra/penis significantly, which has dulce symptoms with the duration of it.). No: Genital sore / lesion, Testiclar pain, Scrotal swelling Similar symptoms before: Diagnosis (urinary retention for past 6 months intermittently. Has been to ER multiple times for saenz placement, removal, etc. Has not been back to urologist for this for months.) Recently seen: Emergency Dept Review of Systems Constitutional: denies: Fever, Chills, Myalgias Cardiac: denies: Chest pain / pressure, Palpitations Respiratory: denies: Dyspnea, Cough GI: denies: Abdominal Pain, Nausea, Vomiting Skin: denies: Rash PD PAST MEDICAL HISTORY - Past Medical History Cardiovascular: None Respiratory: None Neuro: Other Endocrine/Autoimmune: None GI: None : Retention (With indwelling catheter) HEENT: None Psych: Bipolar disorder, Post traumatic stress disorder Musculoskeletal: None Derm: None - Past Surgical History Past Surgical History: No Ortho: Spine surgery Neuro: Other - Present Medications Home Medications: Ambulatory Orders Medication Instructions Recorded Confirmed OLANZapine [Zyprexa] 5 mg PO DAILY #30 tablet 02/24/22 Acetaminophen [Acetaminophen Extra 500 mg PO Q4HR PRN 06/27/22 06/27/22 Strength] methocarbamoL [Methocarbamol] 500 mg PO DAILY 06/27/22 06/27/22 polyethylene glycoL 3350 06/27/22 [Polyethylene Glycol 3350] Acetaminophen [Acetaminophen Extra 500 mg PO QID PRN #50 tablet 06/28/22 Strength] Meloxicam [Mobic] 7.5 mg PO BID 10 Days #20 tablet 06/28/22 Ciprofloxacin HCl [Cipro] 500 mg PO BID 14 Days #28 tablet 07/03/22 Doxycycline Hyclate 100 mg PO BID 7 Days #14 cap 07/07/22 Sulfamethox/Trimeth 800/160 1 each PO BID #14 tablet 07/18/22 [Bactrim Ds 800/160] Sulfamethox/Trimeth 800/160 1 each PO BID #14 tablet 07/30/22 [Bactrim Ds 800/160] Clindamycin [Cleocin] 300 mg ORAL TID 7 Days #42 cap 08/18/22 Naproxen 250 mg PO BID 10 Days #20 tablet 09/08/22 Phenazopyridine HCl [Pyridium] 100 mg PO TID PRN #30 tablet 09/08/22 - Allergies Allergies/Adverse Reactions: Allergies Allergy/AdvReac Type Severity Reaction Status Date / Time Penicillins Allergy Edema Verified 09/08/22 09:45 - Social History Does the pt smoke?: Yes Smoking Status: Current every day smoker Does the pt drink ETOH?: Yes Does the pt have substance abuse?: Yes - Immunizations Immunizations are current?: Yes Immunizations: TDAP >10years/unknown - POLST Patient has POLST: No POLST Status: Full Code PD ED PE NORMAL - Vitals Vital signs reviewed: Yes - General General: Alert and oriented X 3, Well developed/nourished, Other - Abdomen Abdomen: Soft, Non tender - Male Male : Other (saenz from meatus. No skin redness nor discharge seen. scrotum has normal lie and size without tenderness nor swlling. ) - Back Back: No CVA TTP - Derm Derm: Normal color, Warm and dry Results - Vitals Vitals: Vital Signs - 24 hr 09/08/22 09:41 Temperature 36.0 C L Heart Rate 92 Respiratory 20 Rate Blood Pressure 131/79 H O2 Saturation 100 Oxygen O2 Source Room air PD MEDICAL DECISION MAKING - ED course Complexity details: reviewed old records, re-evaluated patient (nursing removed the saenz and he got up and left promptly after. He asked for supplies for self cath at home, and i told him we did not have supplies like that and i am reluctant to Rx them without urology eval and some teaching on it. Urge him to call/make appt with his prior Urologist. ) Departure - Departure Disposition: Home, Self Care Clinical Impression: Urinary retention with incomplete bladder emptying, Urethral irritation Condition: Stable Record reviewed to determine appropriate education?: Yes Prescriptions: Naproxen 250 mg PO BID 10 Days #20 tablet Phenazopyridine HCl [Pyridium] 100 mg PO TID PRN #30 tablet PRN Reason: Abdominal Pain Comments: You have had ongoing problems with urinary retention and have not been able to really get by without catheter drainage. We have remove the catheter at your direction and not replaced it at your direction. We we will continue to see you here in the ER when you have if you have problems. Return when you have inability to urinate. We can try to help the discomfort and promote urinary passage with anti- inflammatories and medication to numb the inside of the bladder and urethra in hopes of reducing urethral spasming. Hopefully this will allow better urine output on your own. I understand it is frustrating to have the discomfort of the catheter versus inability to urinate. I believe you have been told on several occasions that ultimately you need to get back to your urologist for further care and if they feel intermittent self cathing is appropriate then to prescribe you the supplies etc. This might be able to be ordered through your primary care as well. I prescribed the phenazopyridine and naproxen to help with urethral symptoms. I transmitted them to [facility] pharmacy. Return to the ER as needed. Please follow-up with the urology you have seen, call for an appointment. Discharge Date/Time: 09/08/22 10:00
[2022-09-08] MEDS ORDERED: NAPROXEN 250 MG TABLET PO STA (10:02)
[2022-09-08] MEDS ORDERED: PHENAZOPYRIDINE 100 MG TABLET PO STA (10:02)
== END 2022-09-08 10:00 | disposition home or self-care (01) ==
LOC: ED 09:38
DX: T83.098A Other mechanical complication of other urinary catheter, initial encounter (principal); R33.9 Retention of urine, unspecified; Y73.8 Miscellaneous gastroenterology and urology devices associated with adverse incidents, not elsewhere classified; F17.200 Nicotine dependence, unspecified, uncomplicated
CPT/HCPCS: 99282

== ENCOUNTER 2022-09-26 20:24 | Outpatient (CLI) | payer MEDICAID | END 2022-09-26 20:25 | disposition short-term general hospital (02) | LOC: EMS 20:24 | DX: R10.31 Right lower quadrant pain (principal); R10.32 Left lower quadrant pain; R10.13 Epigastric pain; R10.33 Periumbilical pain; R14.0 Abdominal distension (gaseous); N48.89 Other specified disorders of penis; R39.89 Other symptoms and signs involving the genitourinary system | CPT/HCPCS: A0425; A0429; A0999 ==

== ENCOUNTER 2022-09-30 19:00 | Outpatient (CLI) | payer MEDICAID | END 2022-09-30 19:01 | disposition critical access hospital (66) | LOC: EMS 19:00 | DX: R51.9 Headache, unspecified (principal); H53.8 Other visual disturbances; W05.0XXA Fall from non-moving wheelchair, initial encounter | CPT/HCPCS: A0425; A0429; A0999 ==

== ENCOUNTER 2022-09-30 19:19 | Emergency (ER) | payer MEDICAID ==
[2022-09-30] MEDS ORDERED: MELOXICAM 7.5 MG TABLET PO STA (19:30)
--- NOTE | 2022-09-30 19:31 | ED Physician Documentation ---
History of Present Illness - Stated complaint Stated Complaint: GLF - History obtained from History obtained from: Patient, EMS - History of Present Illness Timing: Today, How many hours ago (3) Pain level max: 7 Pain level now: 3 - Additonal information Additional information: 31-year-old male states that he was in his wheelchair today when he fell backwards in the mud striking his head. No loss of consciousness. No neck or back pain. He also has a chronic Merino catheter that he states he is unsure if it is draining correctly or not. No fevers. No chills. No seizure activity. No vomiting. No vision changes. Not on blood thinners. No other injuries. Review of Systems Ten Systems: 10 systems reviewed and negative Constitutional: denies: Fever, Chills Ears: denies: Ear pain Nose: denies: Rhinorrhea / runny nose, Congestion Respiratory: denies: Cough GI: denies: Nausea, Vomiting, Diarrhea Skin: denies: Rash Musculoskeletal: denies: Neck pain, Back pain Neurologic: denies: Focal weakness, Numbness, Head injury, LOC PD PAST MEDICAL HISTORY - Past Medical History Past Medical History: Yes Cardiovascular: None Respiratory: None Neuro: Other Endocrine/Autoimmune: None GI: None : Retention (With indwelling catheter) HEENT: None Psych: Bipolar disorder, Post traumatic stress disorder Musculoskeletal: None Derm: None - Past Surgical History Past Surgical History: No Ortho: Spine surgery Neuro: Other - Present Medications Home Medications: Ambulatory Orders Medication Instructions Recorded Confirmed OLANZapine [Zyprexa] 5 mg PO DAILY #30 tablet 02/24/22 Acetaminophen [Acetaminophen Extra 500 mg PO Q4HR PRN 06/27/22 06/27/22 Strength] methocarbamoL [Methocarbamol] 500 mg PO DAILY 06/27/22 06/27/22 polyethylene glycoL 3350 06/27/22 [Polyethylene Glycol 3350] Acetaminophen [Acetaminophen Extra 500 mg PO QID PRN #50 tablet 06/28/22 Strength] Meloxicam [Mobic] 7.5 mg PO BID 10 Days #20 tablet 06/28/22 Ciprofloxacin HCl [Cipro] 500 mg PO BID 14 Days #28 tablet 07/03/22 Doxycycline Hyclate 100 mg PO BID 7 Days #14 cap 07/07/22 Sulfamethox/Trimeth 800/160 1 each PO BID #14 tablet 07/18/22 [Bactrim Ds 800/160] Sulfamethox/Trimeth 800/160 1 each PO BID #14 tablet 07/30/22 [Bactrim Ds 800/160] Clindamycin [Cleocin] 300 mg ORAL TID 7 Days #42 cap 08/18/22 Naproxen 250 mg PO BID 10 Days #20 tablet 09/08/22 Phenazopyridine HCl [Pyridium] 100 mg PO TID PRN #30 tablet 09/08/22 - Allergies Allergies/Adverse Reactions: Allergies Allergy/AdvReac Type Severity Reaction Status Date / Time Penicillins Allergy Edema Verified 09/30/22 19:26 - Social History Does the pt smoke?: Yes Smoking Status: Current every day smoker Does the pt drink ETOH?: Yes Does the pt have substance abuse?: Yes - Immunizations Immunizations are current?: Yes Immunizations: TDAP >10years/unknown - POLST Patient has POLST: No POLST Status: Full Code PD ED PE NORMAL - Vitals Vital signs reviewed: Yes - General General: Alert and oriented X 3, No acute distress - HEENT HEENT: Atraumatic, PERRL, EOMI, Moist mucous membranes - Neck Neck: Supple, no meningeal sign, No bony TTP, C-Spine cleared by NEXUS criteria - Cardiac Cardiac: RRR, Strong equal pulses - Respiratory Respiratory: No respiratory distress, Clear bilaterally - Abdomen Abdomen: Soft, Non tender, Non distended - Back Back: No CVA TTP, No spinal TTP - Derm Derm: Warm and dry, No rash - Extremities Extremities: No deformity, Normal ROM s pain, Other (Merino catheter in place with clear yellow urine) - Neuro Neuro: Alert and oriented X 3, equipment validation engineer 2-12 intact Eye Opening: Spontaneous Motor: Obeys Commands Verbal: Oriented GCS Score: 15 Results - Vitals Vitals: Vital Signs - 24 hr 09/30/22 09/30/22 19:26 20:56 Temperature 36.5 C 36.5 C Heart Rate 80 80 Respiratory 16 16 Rate Blood Pressure 136/90 H 128/88 H O2 Saturation 100 100 Oxygen O2 Source Room air - Rads (name of study) CT head Radiology: Final report received, See rad report PD Medical Decision Making - ED course Complexity details: reviewed results, re-evaluated patient, considered differential, d/w patient ED course: No acute findings on head CT. The Merino catheter is draining appropriately, but there was a leak in the bag, therefore this was changed. Pain well controlled in the emergency department. Can use Motrin and Tylenol as needed at home for pain. C-spine cleared clinically. No tenderness. Full range of motion without pain. No neurodeficits other than his chronic deficits from his T12 fracture. Patient counseled regarding signs and symptoms for which I believe and urgent re-evaluation would be necessary. Patient with good understanding of and agreement to plan and is comfortable going home at this time This document was made in part using voice recognition software. While efforts are made to proofread this document, sound alike and grammatical errors may occur. Departure - Departure Disposition: 01 Home, Self Care Clinical Impression: Merino catheter present Closed head injury Qualifiers: Encounter type: initial encounter Qualified Code(s): S09.90XA - Unspecified injury of head, initial encounter Condition: Good Instructions: ED Head Injury Closed Follow-Up: your,doctor in 1week [Other] Comments: Please follow-up with your doctor for further care. Your head CT does not show any acute abnormalities. Your leg bag was leaking on your catheter, therefore this was changed. You can use Motrin or Tylenol as needed for pain at home. Return if you worsen. Discharge Date/Time: 09/30/22 20:56
--- NOTE | 2022-09-30 20:21 | CT Report ---
PROCEDURE: HEAD WO INDICATIONS: fall, head injury TECHNIQUE: Noncontrast 4.5 mm thick angled axial sections acquired from the foramen magnum to the vertex. For r adiation dose reduction, the following was used: automated exposure control, adjustment of mA and/or kV according to patient size. COMPARISON: None. FINDINGS: Image quality: Excellent. CSF spaces: Basal cisterns are patent. No extra-axial fluid collections. Ventricles are normal in size and shape. Brain: No midline shift. No intracranial masses or hemorrhage. Black-white matter interface is norm al. Skull and face: Calvarium and visualized facial bones are intact, without suspicious lesions. Sinuses: Visualized sinuses and mastoids are clear. IMPRESSION: 1. No acute intracranial process. Reviewed by: Ashanti Pappas MD on 09/30/2022 8:20 PM PST Approved by: Ashanti Pappas MD on 09/30/2022 8:20 PM [facility] Station ID: [id number]
[2022-09-30 20:57] VITALS: BP 128/88
== END 2022-09-30 20:56 | disposition home or self-care (01) ==
LOC: EDUNIT# → EDBD → ED 19:19
DX: S09.90XA Unspecified injury of head, initial encounter (principal); W05.0XXA Fall from non-moving wheelchair, initial encounter; T83.031A Leakage of indwelling urethral catheter, initial encounter; F17.200 Nicotine dependence, unspecified, uncomplicated
CPT/HCPCS: 70450; 99282; 99284; A9270

== ENCOUNTER 2022-10-09 13:20 | Outpatient (CLI) | payer MEDICAID | END 2022-10-09 13:21 | disposition critical access hospital (66) | LOC: EMS 13:20 | DX: T83.021A Displacement of indwelling urethral catheter, initial encounter (principal); N48.89 Other specified disorders of penis | CPT/HCPCS: A0425; A0429; A0999 ==

== ENCOUNTER 2022-10-09 13:42 | Emergency (ER) | payer MEDICAID ==
--- NOTE | 2022-10-09 13:47 | ED Physician Documentation ---
History of Present Illness - Stated complaint Stated Complaint: ETOH - History obtained from History obtained from: EMS - Additonal information Additional information: 31-year-old gentleman with history of polysubstance abuse has been drinking today. He is homeless. Reportedly fell out of his wheelchair earlier today. Now brought in by EMS for intoxication he is unable to give any history due to intoxication reportedly did not have any obvious injuries after falling out of his ill wheelchair earlier today. He pulled out his indwelling Merino catheter in front of the paramedics. Review of Systems Unable to obtain: Intoxicated PD PAST MEDICAL HISTORY - Past Medical History Cardiovascular: None Respiratory: None Neuro: Other Endocrine/Autoimmune: None GI: None : Retention (With indwelling catheter) HEENT: None Psych: Bipolar disorder, Post traumatic stress disorder Musculoskeletal: None Derm: None - Past Surgical History Past Surgical History: No Ortho: Spine surgery Neuro: Other - Present Medications Home Medications: Ambulatory Orders Medication Instructions Recorded Confirmed OLANZapine [Zyprexa] 5 mg PO DAILY #30 tablet 02/24/22 Acetaminophen [Acetaminophen Extra 500 mg PO Q4HR PRN 06/27/22 06/27/22 Strength] methocarbamoL [Methocarbamol] 500 mg PO DAILY 06/27/22 06/27/22 polyethylene glycoL 3350 06/27/22 [Polyethylene Glycol 3350] Acetaminophen [Acetaminophen Extra 500 mg PO QID PRN #50 tablet 06/28/22 Strength] Meloxicam [Mobic] 7.5 mg PO BID 10 Days #20 tablet 06/28/22 Ciprofloxacin HCl [Cipro] 500 mg PO BID 14 Days #28 tablet 07/03/22 Doxycycline Hyclate 100 mg PO BID 7 Days #14 cap 07/07/22 Sulfamethox/Trimeth 800/160 1 each PO BID #14 tablet 07/18/22 [Bactrim Ds 800/160] Sulfamethox/Trimeth 800/160 1 each PO BID #14 tablet 07/30/22 [Bactrim Ds 800/160] Clindamycin [Cleocin] 300 mg ORAL TID 7 Days #42 cap 08/18/22 Naproxen 250 mg PO BID 10 Days #20 tablet 09/08/22 Phenazopyridine HCl [Pyridium] 100 mg PO TID PRN #30 tablet 09/08/22 - Allergies Allergies/Adverse Reactions: Allergies Allergy/AdvReac Type Severity Reaction Status Date / Time Penicillins Allergy Edema Verified 10/09/22 13:46 - Social History Does the pt smoke?: Yes Smoking Status: Current every day smoker Does the pt drink ETOH?: Yes Does the pt have substance abuse?: Yes - Immunizations Immunizations are current?: Yes Immunizations: TDAP >10years/unknown - POLST Patient has POLST: No POLST Status: Full Code PD ED PE NORMAL - Vitals Vital signs reviewed: Yes - General General: Other (Slow slurred speech with confused nonsensical answers. Unable to participate in history taking.) - HEENT HEENT: PERRL, EOMI (With nystagmus) - Neck Neck: No bony TTP (But will image given intoxication) - Cardiac Cardiac: RRR, No murmur - Respiratory Respiratory: No respiratory distress, Clear bilaterally - Abdomen Abdomen: Normal bowel sounds, Soft, Non tender - Back Back: No spinal TTP (But will image given intoxication) - Derm Derm: Normal color, Warm and dry - Neuro Neuro: Other (Paretic in the lower extremities) Eye Opening: Spontaneous Motor: Obeys Commands Verbal: Inappropriate GCS Score: 13 Results - Vitals Vitals: Vital Signs - 24 hr 10/09/22 10/09/22 13:46 13:49 Temperature 36.9 C 36.9 C Heart Rate 100 100 Respiratory 18 18 Rate Blood Pressure 136/96 H 136/96 H O2 Saturation 96 96 Oxygen O2 Source Room air - Labs Labs: Laboratory Tests 10/09/22 10/09/22 10/09/22 13:43 13:43 14:11 WBC 13.8 H RBC 5.32 Hgb 13.6 L Hct 43.0 MCV 80.8 MCH 25.6 L MCHC 31.6 L RDW 16.8 H Plt Count 403 MPV 9.3 Neut # (Auto) 9.8 H Lymph # (Auto) 2.6 [place] # (Auto) 1.1 H Eos # (Auto) 0.1 Baso # (Auto) 0.1 Absolute Nucleated RBC 0.00 Nucleated RBC % 0.0 Sodium 138 Potassium 4.1 Chloride 99 L Carbon Dioxide 28 Anion Gap 11.0 BUN 11 Creatinine 0.7 Estimated GFR (MDRD) 131 Glucose 108 H Calcium 9.6 Total Bilirubin 0.5 AST 20 ALT 18 Alkaline Phosphatase 78 Total Protein 8.2 Albumin 4.5 Globulin 3.7 Albumin/Globulin Ratio 1.2 Lipase 28 Salicylates < 6.0 Urine Opiates Screen NEGATIVE Ur Oxycodone Screen NEGATIVE Urine Methadone Screen NEGATIVE Ur Propoxyphene Screen NEGATIVE Acetaminophen < 10 L Ur Barbiturates Screen NEGATIVE Ur Tricyclics Screen NEGATIVE Ur Phencyclidine Scrn NEGATIVE Ur Amphetamine Screen POSITIVE H U Methamphetamines Scrn POSITIVE H U Benzodiazepines Scrn NEGATIVE Urine Cocaine Screen NEGATIVE U Cannabinoids Screen POSITIVE H Ethyl Alcohol 247.3 - Rads (name of study) CT of the head, cervical spine, T and L-spine's. Concern for new areas of lucency around T12. No focal tenderness there. Radiology: Final report received, EMP read indepedently PD Medical Decision Making - ED course Social Determinants of Health: Homelessness and polysubstance abuse ED course: 31-year-old gentleman presents with alcohol intoxication. No clear trauma but has a history of spine fracture causing paraplegia. He cleared while in the department, I was not yet ready to discharge him based on his alcohol level but he wheeled himself out of the department without discharge instructions. Departure - Departure Disposition: 01 Home, Self Care Clinical Impression: Methamphetamine use, Paraplegia, Encounter for Merino catheter replacement Alcohol intoxication Qualifiers: Complication of substance-induced condition: uncomplicated Qualified Code(s): F10.920 - Alcohol use, unspecified with intoxication, uncomplicated Condition: Good Instructions: ED Drug Abuse General, ED Alcohol Intoxication
[2022-10-09 13:49] VITALS: BP 136/96
[2022-10-09 14:03] LABS: BASOPHILS # (AUTO) 0.1 10^3/uL (0.0-0.1); BASOPHILS % (AUTO) 0.9 %; EOSINOPHILS # (AUTO) 0.1 10^3/uL (0.0-0.7); EOSINOPHILS % (AUTO) 0.9 %; HGB - HEMOGLOBIN 13.6 g/dL (14.0-18.0); LYMPHOCYTES # (AUTO) 2.6 10^3/uL (1.5-3.5); LYMPHOCYTES % (AUTO) 18.8 %; MEAN CORPUSCULAR HEMOGLOBIN 25.6 pg (27.0-31.0); MEAN CORPUSCULAR HGB CONC 31.6 g/dL (32.0-36.0); MEAN CORPUSCULAR VOLUME 80.8 fL (80.0-94.0); MEAN PLATELET VOLUME 9.3 fL (7.4-11.4); MONOCYTES # (AUTO) 1.1 10^3/uL (0.0-1.0); MONOCYTES % (AUTO) 7.9 %; NEUTROPHILS # (AUTO) 9.8 10^3/uL (1.5-6.6); PLT - PLATELET COUNT 403 10^3/uL (130-450); RED BLOOD COUNT 5.32 10^6/uL (4.70-6.10); RED CELL DISTRIBUTION WIDTH 16.8 % (12.0-15.0); WHITE BLOOD COUNT 13.8 x10^3/uL (4.8-10.8)
[2022-10-09 14:15] LABS: MUDS CUTOFF CONCENTRATIONS CUTOFF CONC BELOW:
[2022-10-09 14:19] LABS: ACETAMINOPHEN < 10 ug/mL (10-30); ALBUMIN 4.5 g/dL (3.2-5.5); ALBUMIN/GLOBULIN RATIO 1.2 (1.0-2.2); ALKALINE PHOSPHATASE 78 IU/L (42-121); ALT ALANINE AMINOTRANSFERASE 18 IU/L (10-60); AST ASPARTATE AMINOTRANSFERASE 20 IU/L (10-42); BILIRUBIN,TOTAL 0.5 mg/dL (0.2-1.0); BUN - BLOOD UREA NITROGEN 11 mg/dL (6-20); CALCIUM 9.6 mg/dL (8.5-10.3); CARBON DIOXIDE - CO2 28 mmol/L (21-32); CHLORIDE 99 mmol/L (101-111); CREATININE 0.7 mg/dL (0.6-1.2); ETOH - ETHANOL 247.3 mg/dL; GFR - MDRD 131 (>89); GLUCOSE 108 mg/dL (70-100); LIPASE 28 U/L (22-51); POTASSIUM 4.1 mmol/L (3.5-5.0); SALICYLATE < 6.0 mg/dL; SODIUM 138 mmol/L (135-145); TOTAL PROTEIN 8.2 g/dL (6.7-8.2)
[2022-10-09 14:28] LABS: THC CANNABINOID SCREEN, URINE POSITIVE (NEGATIVE)
[2022-10-09 14:29] LABS: AMPHETAMINE SCREEN,URINE POSITIVE (NEGATIVE); BARBITURATE SCREEN,UR NEGATIVE (NEGATIVE); BENZODIAZEPINES SCREEN, URINE NEGATIVE (NEGATIVE); COCAINE SCREEN URINE NEGATIVE (NEGATIVE); METHADONE SCREEN, URINE NEGATIVE (NEGATIVE); METHAMPHETAMINES SCREEN, URINE POSITIVE (NEGATIVE); OPIATE SCREEN, URINE NEGATIVE (NEGATIVE); OXYCODONE SCREEN, URINE NEGATIVE (NEGATIVE); PROPOXYPHENE SCREEN, URINE NEGATIVE (NEGATIVE); TRICYCLIC ANTIDEPRESSANT,URINE NEGATIVE (NEGATIVE)
--- NOTE | 2022-10-09 15:50 | CT Report ---
PROCEDURE: HEAD WO INDICATIONS: head inj TECHNIQUE: Noncontrast 4.5 mm thick angled axial sections acquired from the foramen magnum to the vertex. For r adiation dose reduction, the following was used: automated exposure control, adjustment of mA and/or kV according to patient size. COMPARISON: CT brain 09/30/2022 FINDINGS: Image quality: Excellent. CSF spaces: Basal cisterns are patent. No extra-axial fluid collections. Ventricles are normal in size and shape. Brain: No midline shift. No intracranial masses or hemorrhage. Black-white matter interface is norm al. Skull and face: Calvarium and visualized facial bones are intact, without suspicious lesions. Sinuses: Visualized sinuses and mastoids are clear. IMPRESSION: 1. No acute intracranial process. Reviewed by: Ashanti Pappas MD on 10/09/2022 3:49 PM PST Approved by: Ashanti Pappas MD on 10/09/2022 3:49 PM PST Station ID: [id number]
--- NOTE | 2022-10-09 15:51 | CT Report ---
PROCEDURE: CERVICAL SPINE WO INDICATIONS: head inj TECHNIQUE: Noncontrast 3 mm thick sections acquired from the skull base to the T4 level. Sagittal and coronal r eformats were then constructed. For radiation dose reduction, the following was used: automated exp osure control, adjustment of mA and/or kV according to patient size. COMPARISON: CT C-spine 05/28/2022 FINDINGS: Image quality: Motion is present on the exam limiting some areas of fine detail evaluation. This is m ost notable in the facial structures. Bones: No fractures or dislocations. Visualized superior ribs are intact. Soft tissues: Prevertebral soft tissues are normal in thickness. No paravertebral hematomas. No ap ical pneumothoraces. IMPRESSION: Motion limits portions of the exam. No visualized cervical spine fracture. Reviewed by: Ashanti Pappas MD on 10/09/2022 3:50 PM PST Approved by: Ashanti Pappas MD on 10/09/2022 3:50 PM PST Station ID: [id number]
--- NOTE | 2022-10-09 15:54 | CT Report ---
PROCEDURE: THORACIC SPINE WO INDICATIONS: poss back inj TECHNIQUE: Noncontrast 3 mm thick sections acquired through the region of interest in the thoracic spine. Sagit sangita and coronal reformats were then constructed. For radiation dose reduction, the following was used : automated exposure control, adjustment of mA and/or kV according to patient size. COMPARISON: CT thoracic and lumbar spine 05/29/2022 FINDINGS: Image quality: Excellent. Bones: There is normal overall bony alignment. Thoracolumbar fixation rods are present at T10, T11, L1 and L2. Compression deformity at T12 is again identified. Areas of lucency are noted within the ve rtebral body appearing slightly more prominent when compared to prior exam. No suspicious sclerotic o r lytic bony lesions. Central spinal canal is of normal overall caliber. Thoracolumbar fixation tin s are present. Soft tissues: No paravertebral masses or hematomas. Visualized posteromedial lungs appear clear. IMPRESSION: Compression T12 with new areas of lucency compared to prior exam on 05/29/2022. This could represent c ystic change. However, superimposed acute/subacute fracture cannot be excluded as several areas of th e lucency appear more linear. Recommend correlation of point tenderness. Reviewed by: Ashanti Pappas MD on 10/09/2022 3:53 PM PST Approved by: Ashanti Pappas MD on 10/09/2022 3:53 PM PST Station ID: [id number]
--- NOTE | 2022-10-09 15:59 | CT Report ---
PROCEDURE: LUMBAR SPINE WO INDICATIONS: poss back inj TECHNIQUE: Noncontrast 3 mm thick sections acquired from the T12 level to the sacrum. Sagittal and coronal refo rmats were constructed. For radiation dose reduction, the following was used: automated exposure co ntrol, adjustment of mA and/or kV according to patient size. COMPARISON: CT thoracic and lumbar spine 05/29/2022. FINDINGS: Image quality: Excellent. Bones: Fixation rods at T10, T11, L1 and L2 are unchanged. There is compression deformity at T12 whic h was present on prior exam. There are areas of lucency which are new compared to prior exam. Soft tissues: No retroperitoneal masses or hematomas. Visualized aorta is normal in caliber. IMPRESSION: Compression deformity at T12 and new areas of lucency compared to prior on 05/29/2022. While this coul d represent cystic change, superimposed acute/subacute fracture cannot be excluded as several areas o f lucency appear more linear. Recommend correlation to direct point tenderness. Reviewed by: Ashanti Pappas MD on 10/09/2022 3:58 PM PST Approved by: Ashanti Pappas MD on 10/09/2022 3:58 PM PST Station ID: [id number]
== END 2022-10-09 16:21 | disposition home or self-care (01) ==
LOC: EDUNIT# → ED 13:42
DX: F15.90 Other stimulant use, unspecified, uncomplicated (principal); F10.920 Alcohol use, unspecified with intoxication, uncomplicated; Y90.8 Blood alcohol level of 240 mg/100 ml or more; Z59.00 Homelessness unspecified; F17.200 Nicotine dependence, unspecified, uncomplicated; Z46.6 Encounter for fitting and adjustment of urinary device; G82.20 Paraplegia, unspecified
CPT/HCPCS: 36415; 80053; 80306; 80307; 80320; 80329; 83690; 85025; 99283; 99284

== ENCOUNTER 2022-10-13 08:48 | Outpatient (CLI) | payer MEDICAID | END 2022-10-13 08:49 | disposition critical access hospital (66) | LOC: EMS 08:48 | DX: T40.411A Poisoning by fentanyl or fentanyl analogs, accidental (unintentional), initial encounter (principal); R41.82 Altered mental status, unspecified; R06.89 Other abnormalities of breathing; R53.83 Other fatigue; R11.0 Nausea | CPT/HCPCS: A0425; A0429; A0999 ==

== ENCOUNTER 2022-10-13 09:10 | Emergency (ER) | payer MEDICAID ==
[2022-10-13] MEDS ORDERED: SODIUM CHLORIDE 0.9% 1,000 ML IV STA (09:17)
--- NOTE | 2022-10-13 09:18 | ED Physician Documentation ---
PD HPI OVERDOSE - Stated complaint Stated Complaint: OD - History obtained from History obtained from: Patient, EMS (EMS reports they reviewed the patient to be unresponsive with hypoventilation but adequate sats. 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 Not prescribed.) Associated symptoms: Unresponsive Contributing factors: Other (chronic back pain and he was hoping for some relief of the pain.). No: Depresssed, Suicidal Recently seen: Emergency Dept Review of Systems Constitutional: denies: Fever, Chills Cardiac: denies: Chest pain / pressure Respiratory: denies: Cough : denies: Hematuria Neurologic: denies: Head injury PD PAST MEDICAL HISTORY - Past Medical History Cardiovascular: None Respiratory: None Neuro: Other Endocrine/Autoimmune: None GI: None : Retention (With indwelling catheter, though the catheter he has currently is not in place and just taped to his thigh. ) HEENT: None Psych: Bipolar disorder, Post traumatic stress disorder Musculoskeletal: None Derm: None - Past Surgical History Past Surgical History: No Ortho: Spine surgery Neuro: Other - Present Medications Home Medications: Ambulatory Orders Medication Instructions Recorded Confirmed OLANZapine [Zyprexa] 5 mg PO DAILY #30 tablet 02/24/22 methocarbamoL [Methocarbamol] 500 mg PO DAILY 06/27/22 06/27/22 Acetaminophen [Acetaminophen Extra 500 mg PO QID PRN #50 tablet 06/28/22 Strength] Meloxicam [Mobic] 7.5 mg PO BID 10 Days #20 tablet 06/28/22 Naproxen 250 mg PO BID 10 Days #20 tablet 09/08/22 Meloxicam [Mobic] 7.5 mg PO BID 10 Days #40 tablet 10/13/22 methocarbamoL [Robaxin] 500 mg PO TID #30 tablet 10/13/22 - Allergies Allergies/Adverse Reactions: Allergies Allergy/AdvReac Type Severity Reaction Status Date / Time Penicillins Allergy Edema Verified 10/13/22 09:16 - Social History Does the pt smoke?: Yes Smoking Status: Current every day smoker Does the pt drink ETOH?: Yes Does the pt have substance abuse?: Yes - Immunizations Immunizations are current?: Yes Immunizations: TDAP >10years/unknown - POLST Patient has POLST: No POLST Status: Full Code PD ED PE NORMAL - Vitals Vital signs reviewed: Yes - General General: Alert and oriented X 3, No acute distress, Well developed/nourished - Cardiac Cardiac: RRR, No murmur - Respiratory Respiratory: Clear bilaterally - Abdomen Abdomen: Soft, Non tender, Non distended - Derm Derm: Normal color, Warm and dry Results - Vitals Vitals: Vital Signs - 24 hr 10/13/22 10/13/22 10/13/22 09:16 11:04 12:01 Temperature 36.2 C L Heart Rate 98 103 H 100 Respiratory 15 16 14 Rate Blood Pressure 122/92 H 99/58 L 109/70 O2 Saturation 100 100 98 Oxygen O2 Source Room air - Labs Labs: Laboratory Tests 10/13/22 10/13/22 10/13/22 09:23 09:23 09:58 WBC 11.5 H RBC 4.92 Hgb 12.6 L Hct 40.6 L MCV 82.5 MCH 25.6 L MCHC 31.0 L RDW 16.4 H Plt Count 326 MPV 9.3 Neut # (Auto) 8.6 H Lymph # (Auto) 2.0 [place] # (Auto) 0.8 Eos # (Auto) 0.1 Baso # (Auto) 0.1 Absolute Nucleated RBC 0.00 Nucleated RBC % 0.0 Sodium 136 Potassium 4.0 Chloride 100 L Carbon Dioxide 28 Anion Gap 8.0 BUN 20 Creatinine 0.8 Estimated GFR (MDRD) 112 Glucose 127 H Calcium 9.1 Total Bilirubin 0.6 AST 76 H ALT 44 Alkaline Phosphatase 86 Total Protein 7.3 Albumin 3.8 Globulin 3.5 Albumin/Globulin Ratio 1.1 Lipase 31 Urine Color YELLOW Urine Clarity SL. CLOUDY Urine pH 6.0 Ur Specific [place] 1.025 Urine Protein 30 H Urine Glucose (UA) 250 H Urine Ketones NEGATIVE Urine Occult Blood TRACE-INTA Urine Nitrite POSITIVE H Urine Bilirubin NEGATIVE Urine Urobilinogen 0.2 (NORMAL) Ur Leukocyte Esterase TRACE H Urine RBC 0-5 Urine WBC 11-25 H Urine WBC Clumps PRESENT Ur Squamous Epith Cells RARE Squamous Urine Crystals Urine Bacteria Moderate H Ur Microscopic Review INDICATED Urine Culture Comments INDICATED Salicylates < 6.0 Urine Opiates Screen NEGATIVE Ur Oxycodone Screen NEGATIVE Urine Methadone Screen NEGATIVE Ur Propoxyphene Screen NEGATIVE Acetaminophen < 10 L Ur Barbiturates Screen NEGATIVE Ur Tricyclics Screen NEGATIVE Ur Phencyclidine Scrn NEGATIVE Ur Amphetamine Screen POSITIVE H U Methamphetamines Scrn POSITIVE H U Benzodiazepines Scrn NEGATIVE Urine Cocaine Screen NEGATIVE U Cannabinoids Screen POSITIVE H Ethyl Alcohol < 5.0 PD Medical Decision Making - ED course Complexity details: re-evaluated patient (he remained alert and conversant and did not need re-dosing of Narcan. Watched couple of hours. ), considered differential, d/w patient, other (his case counselor was present in the ER and is going to provide him a ride and some resource help.) Departure - Departure Disposition: 01 Home, Self Care Clinical Impression: Opioid overdose Qualifiers: Encounter type: initial encounter Injury intent: accidental or unintentional Qualified Code(s): T40.2X1A - Poisoning by other opioids, accidental (unintentional), initial encounter Altered mental status Qualifiers: Altered mental status type: somnolence Qualified Code(s): R40.0 - Somnolence Chronic back pain Qualifiers: Back pain location: thoracic back pain Condition: Stable Record reviewed to determine appropriate education?: Yes Follow-Up: Gerard Flores MD [Provider Admit Priv/Credential] - [facility] [Provider Group] Prescriptions: Meloxicam [Mobic] 7.5 mg PO BID 10 Days #40 tablet methocarbamoL [Robaxin] 500 mg PO TID #30 tablet Comments: We do have a ER follow-up primary care list and Dr. Flores in the [facility] primary care offices listed for follow-ups for this week. Call the provider number and let them know you are seen in the ER and this is a follow-up on that for unassigned patients. Meanwhile we can try to help with your back pain with the using of some anti- inflammatories regularly as well as muscle relaxants. To that add Tylenol every 4-6 hours if needed. I wrote prescriptions for these. See if the primary care would be able to reinitiate physical therapy, and provide longer term medications etc. Discharge Date/Time: 10/13/22 12:07
[2022-10-13 09:27] LABS: BASOPHILS # (AUTO) 0.1 10^3/uL (0.0-0.1); BASOPHILS % (AUTO) 0.7 %; EOSINOPHILS # (AUTO) 0.1 10^3/uL (0.0-0.7); EOSINOPHILS % (AUTO) 0.7 %; HCT - HEMATOCRIT 40.6 % (42.0-52.0); HGB - HEMOGLOBIN 12.6 g/dL (14.0-18.0); MEAN CORPUSCULAR HEMOGLOBIN 25.6 pg (27.0-31.0); MEAN CORPUSCULAR VOLUME 82.5 fL (80.0-94.0); MEAN PLATELET VOLUME 9.3 fL (7.4-11.4); MONOCYTES # (AUTO) 0.8 10^3/uL (0.0-1.0); MONOCYTES % (AUTO) 6.9 %; NEUTROPHILS # (AUTO) 8.6 10^3/uL (1.5-6.6); NEUTROPHILS % (AUTO) 74.1 %; PLT - PLATELET COUNT 326 10^3/uL (130-450); RED BLOOD COUNT 4.92 10^6/uL (4.70-6.10); RED CELL DISTRIBUTION WIDTH 16.4 % (12.0-15.0); WHITE BLOOD COUNT 11.5 x10^3/uL (4.8-10.8)
[2022-10-13 09:44] LABS: ACETAMINOPHEN < 10 ug/mL (10-30); ALBUMIN 3.8 g/dL (3.2-5.5); ALBUMIN/GLOBULIN RATIO 1.1 (1.0-2.2); ALKALINE PHOSPHATASE 86 IU/L (42-121); ALT ALANINE AMINOTRANSFERASE 44 IU/L (10-60); AST ASPARTATE AMINOTRANSFERASE 76 IU/L (10-42); BILIRUBIN,TOTAL 0.6 mg/dL (0.2-1.0); BUN - BLOOD UREA NITROGEN 20 mg/dL (6-20); CALCIUM 9.1 mg/dL (8.5-10.3); CARBON DIOXIDE - CO2 28 mmol/L (21-32); CHLORIDE 100 mmol/L (101-111); CREATININE 0.8 mg/dL (0.6-1.2); ETOH - ETHANOL < 5.0 mg/dL; GFR - MDRD 112 (>89); GLUCOSE 127 mg/dL (70-100); LIPASE 31 U/L (22-51); SALICYLATE < 6.0 mg/dL; SODIUM 136 mmol/L (135-145); TOTAL PROTEIN 7.3 g/dL (6.7-8.2)
[2022-10-13 10:06] LABS: MUDS CUTOFF CONCENTRATIONS CUTOFF CONC BELOW:
[2022-10-13 10:07] LABS: BILIRUBIN,URINE NEGATIVE (NEGATIVE); CLARITY,URINE SL. CLOUDY (CLEAR); GLUCOSE, URINE (UA) 250 mg/dL (NEGATIVE); KETONES,URINE (UA) NEGATIVE (NEGATIVE); LEUKOCYTE ESTERASE, URINE TRACE (NEGATIVE); NITRITE,URINE POSITIVE (NEGATIVE); OCCULT BLOOD,URINE TRACE-INTA (NEGATIVE); PROTEIN,URINE 30 mg/dL (NEGATIVE); UROBILINOGEN,URINE 0.2 (NORMAL) E.U./dL (NORMAL)
[2022-10-13 10:23] LABS: AMPHETAMINE SCREEN,URINE POSITIVE (NEGATIVE); BARBITURATE SCREEN,UR NEGATIVE (NEGATIVE); BENZODIAZEPINES SCREEN, URINE NEGATIVE (NEGATIVE); COCAINE SCREEN URINE NEGATIVE (NEGATIVE); METHADONE SCREEN, URINE NEGATIVE (NEGATIVE); METHAMPHETAMINES SCREEN, URINE POSITIVE (NEGATIVE); OPIATE SCREEN, URINE NEGATIVE (NEGATIVE); OXYCODONE SCREEN, URINE NEGATIVE (NEGATIVE); PROPOXYPHENE SCREEN, URINE NEGATIVE (NEGATIVE); THC CANNABINOID SCREEN, URINE POSITIVE (NEGATIVE); TRICYCLIC ANTIDEPRESSANT,URINE NEGATIVE (NEGATIVE)
[2022-10-13 10:30] LABS: BACTERIA,URINE Moderate /HPF (None Seen); RBC,URINE 0-5 /HPF (0-5); SQUAMOUS EPITHELIAL CELL,UR RARE Squamous (<= Few); WBC CLUMPS,URINE PRESENT
[2022-10-13] MEDS ORDERED: NALOXONE HCL NASAL SPRAY KIT NAS STA (11:43)
[2022-10-13 12:02] VITALS: BP 109/70
== END 2022-10-13 12:07 | disposition home or self-care (01) ==
LOC: EDBD → EDUNIT# → ED 09:10
DX: R40.4 Transient alteration of awareness (principal); T40.2X1A Poisoning by other opioids, accidental (unintentional), initial encounter; F17.200 Nicotine dependence, unspecified, uncomplicated
CPT/HCPCS: 36415; 80053; 80306; 80307; 80320; 80329; 81001; 83690; 85025; 87086; 93005; 96360; 96361; 99284; G2215; 81003; 87181

== ENCOUNTER 2022-11-25 09:17 | Outpatient (CLI) | payer MEDICAID | END 2022-11-25 23:59 | disposition critical access hospital (66) | LOC: EMS 09:17 | DX: R53.1 Weakness (principal); T69.9XXA Effect of reduced temperature, unspecified, initial encounter; X31.XXXA Exposure to excessive natural cold, initial encounter | CPT/HCPCS: A0425; A0429; A0999 ==

== ENCOUNTER 2022-11-25 09:37 | Emergency (ER) | payer MEDICAID ==
[2022-11-25] MEDS ORDERED: SODIUM CHLORIDE 0.9% 1,000 ML IV STA (09:51)
[2022-11-25 10:04] LABS: BASOPHILS # (AUTO) 0.1 10^3/uL (0.0-0.1); BASOPHILS % (AUTO) 0.5 %; EOSINOPHILS # (AUTO) 0.1 10^3/uL (0.0-0.7); EOSINOPHILS % (AUTO) 0.4 %; HCT - HEMATOCRIT 40.1 % (42.0-52.0); HGB - HEMOGLOBIN 12.9 g/dL (14.0-18.0); LYMPHOCYTES # (AUTO) 1.3 10^3/uL (1.5-3.5); LYMPHOCYTES % (AUTO) 7.3 %; MEAN CORPUSCULAR HEMOGLOBIN 26.8 pg (27.0-31.0); MEAN CORPUSCULAR HGB CONC 32.2 g/dL (32.0-36.0); MEAN CORPUSCULAR VOLUME 83.2 fL (80.0-94.0); MEAN PLATELET VOLUME 9.9 fL (7.4-11.4); MONOCYTES # (AUTO) 1.2 10^3/uL (0.0-1.0); MONOCYTES % (AUTO) 6.6 %; NEUTROPHILS # (AUTO) 15.1 10^3/uL (1.5-6.6); NEUTROPHILS % (AUTO) 84.8 %; PLT - PLATELET COUNT 284 10^3/uL (130-450); RED BLOOD COUNT 4.82 10^6/uL (4.70-6.10); RED CELL DISTRIBUTION WIDTH 16.1 % (12.0-15.0); WHITE BLOOD COUNT 17.8 x10^3/uL (4.8-10.8)
[2022-11-25 10:22] LABS: ALBUMIN 3.9 g/dL (3.2-5.5); ALBUMIN/GLOBULIN RATIO 1.1 (1.0-2.2); ALKALINE PHOSPHATASE 72 IU/L (42-121); ALT ALANINE AMINOTRANSFERASE 18 IU/L (10-60); AST ASPARTATE AMINOTRANSFERASE 28 IU/L (10-42); BILIRUBIN,TOTAL 0.9 mg/dL (0.2-1.0); BUN - BLOOD UREA NITROGEN 10 mg/dL (6-20); CALCIUM 9.1 mg/dL (8.5-10.3); CARBON DIOXIDE - CO2 25 mmol/L (21-32); CHLORIDE 97 mmol/L (101-111); CREATININE 0.6 mg/dL (0.6-1.2); ETOH - ETHANOL < 5.0 mg/dL; GFR - MDRD 155 (>89); GLUCOSE 90 mg/dL (70-100); LIPASE 29 U/L (22-51); POTASSIUM 3.7 mmol/L (3.5-5.0); SODIUM 132 mmol/L (135-145); TOTAL PROTEIN 7.3 g/dL (6.7-8.2)
[2022-11-25 11:07] LABS: MUDS CUTOFF CONCENTRATIONS CUTOFF CONC BELOW:
[2022-11-25 11:09] LABS: BILIRUBIN,URINE NEGATIVE (NEGATIVE); GLUCOSE, URINE (UA) NEGATIVE (NEGATIVE); KETONES,URINE (UA) NEGATIVE (NEGATIVE); LEUKOCYTE ESTERASE, URINE LARGE (NEGATIVE); NITRITE,URINE POSITIVE (NEGATIVE); OCCULT BLOOD,URINE TRACE-INTA (NEGATIVE); PROTEIN,URINE NEGATIVE (NEGATIVE); UROBILINOGEN,URINE 0.2 (NORMAL) E.U./dL (NORMAL)
[2022-11-25 11:10] LABS: CLARITY,URINE SL. CLOUDY (CLEAR)
[2022-11-25 11:21] LABS: AMPHETAMINE SCREEN,URINE POSITIVE (NEGATIVE); BACTERIA,URINE Moderate /HPF (None Seen); BARBITURATE SCREEN,UR NEGATIVE (NEGATIVE); BENZODIAZEPINES SCREEN, URINE NEGATIVE (NEGATIVE); COCAINE SCREEN URINE NEGATIVE (NEGATIVE); METHADONE SCREEN, URINE NEGATIVE (NEGATIVE); METHAMPHETAMINES SCREEN, URINE POSITIVE (NEGATIVE); OPIATE SCREEN, URINE NEGATIVE (NEGATIVE); OXYCODONE SCREEN, URINE NEGATIVE (NEGATIVE); PROPOXYPHENE SCREEN, URINE NEGATIVE (NEGATIVE); RBC,URINE 0-5 /HPF (0-5); SQUAMOUS EPITHELIAL CELL,UR NONE SEEN (<= Few); THC CANNABINOID SCREEN, URINE POSITIVE (NEGATIVE); TRICYCLIC ANTIDEPRESSANT,URINE NEGATIVE (NEGATIVE)
[2022-11-25] MEDS ORDERED: cefTRIAXone 1 GM in SODIUM CHLORIDE 0.9% MINIBAG 100 ML IV STA (14:27)
[2022-11-25 14:59] VITALS: BP 103/59
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
== END 2022-11-25 15:33 | disposition home or self-care (01) ==
LOC: EDUNIT# → ED 09:37
DX: N30.00 Acute cystitis without hematuria (principal); F15.90 Other stimulant use, unspecified, uncomplicated; F17.200 Nicotine dependence, unspecified, uncomplicated; Z59.02 Unsheltered homelessness; Z79.899 Other long term (current) drug therapy; Z88.0 Allergy status to penicillin
CPT/HCPCS: 36415; 80053; 80306; 80320; 81001; 81003; 83690; 84443; 85025; 87086; 87181; 96365; 99284

== ENCOUNTER 2022-12-26 09:55 | Outpatient (CLI) | payer MEDICAID | END 2022-12-26 23:58 | disposition EMS.NT | LOC: EMS 09:55 | DX: T69.9XXA Effect of reduced temperature, unspecified, initial encounter (principal); X31.XXXA Exposure to excessive natural cold, initial encounter; Z59.02 Unsheltered homelessness ==

== ENCOUNTER 2023-02-14 01:04 | Outpatient (CLI) | payer MEDICAID | END 2023-02-14 01:05 | disposition critical access hospital (66) | LOC: EMS 01:04 | DX: S09.90XA Unspecified injury of head, initial encounter (principal); R40.4 Transient alteration of awareness; R06.89 Other abnormalities of breathing; X58.XXXA Exposure to other specified factors, initial encounter; Y92.414 Local residential or business street as the place of occurrence of the external cause; Z99.3 Dependence on wheelchair; Z59.02 Unsheltered homelessness | CPT/HCPCS: A0425; A0429; A0999 ==

== ENCOUNTER 2023-05-31 01:59 | Outpatient (CLI) | payer MEDICAID | END 2023-05-31 02:00 | disposition critical access hospital (66) | LOC: EMS 01:59 | DX: R33.9 Retention of urine, unspecified (principal); R10.9 Unspecified abdominal pain | CPT/HCPCS: A0425; A0429; A0999 ==

== ENCOUNTER 2023-05-31 02:23 | Emergency (ER) | payer MEDICAID ==
[2023-05-31] MEDS ORDERED: OLANZapine 10 MG VIAL IM ONE ×3 (02:48→04:06)
--- NOTE | 2023-05-31 02:48 | ED Physician Documentation ---
History of Present Illness - Stated complaint Stated Complaint: AMS/ - History obtained from History obtained from: EMS - Additonal information Additional information: BIBA for odd and erratic behavior in public. EMS reports patients behavior has been erratic en route, at times calm but other times suddenly becoming belligerent, nearly requiring physical restraint due to combative behavior immediately before arrival. Patient is yelling loudly on arrival, writhing in stretcher, not answering my questions. When I ask him to reposition himself on the stretcher (as he is nearly falling off the stretcher as he writhes around), he suddenly does so and lies flat on middle of stretcher. I ask him orientation questions starting with his name, and he immediately resumes violent writhing on stretcher, uttering phrases inappropriate to questions, cursing at me at times. Patient is known to this ED with over 40 [facility] ED visits on [facility] records. 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 EMS note that amongst patients possessions brought in ambulance with patient is a large bottle of brown liquor, about 1/3 missing. Review of Systems Unable to obtain: Intoxicated, Uncooperative PD PAST MEDICAL HISTORY - Past Medical History Cardiovascular: None Respiratory: None Neuro: Other Endocrine/Autoimmune: None GI: None : Retention HEENT: None Psych: Bipolar disorder, Post traumatic stress disorder Musculoskeletal: None Derm: None - Past Surgical History Past Surgical History: No Ortho: Spine surgery Neuro: Other - Present Medications Home Medications: Ambulatory Orders Medication Instructions Recorded Confirmed No Known Home Medications 02/14/23 02/14/23 - Allergies Allergies/Adverse Reactions: Allergies Allergy/AdvReac Type Severity Reaction Status Date / Time Penicillins Allergy Edema Verified 05/31/23 02:51 - Social History Does the pt smoke?: Yes Smoking Status: Current every day smoker Does the pt drink ETOH?: Yes Does the pt have substance abuse?: Yes - Immunizations Immunizations are current?: Yes Immunizations: TDAP >10years/unknown - POLST Patient has POLST: No POLST Status: Full Code PD ED PE NORMAL - Vitals Vital signs reviewed: Yes - HEENT HEENT: Atraumatic, PERRL, Moist mucous membranes, Other (multiple scabs/pick vicente on face, neck) - Neck Neck: Supple, no meningeal sign - Cardiac Cardiac: RRR, No murmur - Respiratory Respiratory: No respiratory distress, Clear bilaterally - Abdomen Abdomen: Soft - Neuro Eye Opening: Spontaneous Motor: Localizes to Pain (although patient followed a single command of mine, he otherwise does not follow any commands and thus obeys commands does not accurately reflect the situation) Verbal: Inappropriate GCS Score: 12 PD ED PE EXPANDED - General General: Disheveled, poorly kept, Other (hyperkinetic at times, thrashing, writhing, cursing at staff at times) - Psych Psych: Poor eye contact, Agitated, Combative Results - Vitals Vitals: Vital Signs - 24 hr 05/31/23 05/31/23 05/31/23 04:08 04:22 04:37 Temperature Heart Rate 83 128 H 126 H Respiratory 17 13 21 Rate Blood Pressure 113/70 113/69 113/70 O2 Saturation 94 97 98 If not protocol : Oxygen Flow, liters/minute 05/31/23 05/31/23 05/31/23 04:51 05:07 05:27 Temperature Heart Rate 110 H 98 117 H Respiratory 21 21 17 Rate Blood Pressure 129/69 157/131 H 150/88 H O2 Saturation 96 98 96 If not protocol 4 : Oxygen Flow, liters/minute 05/31/23 05/31/23 05/31/23 05:30 05:31 05:33 Temperature Heart Rate 129 H 107 H 118 H Respiratory 14 15 23 Rate Blood Pressure 174/113 H 142/78 H O2 Saturation 98 97 If not protocol 4 4 : Oxygen Flow, liters/minute 05/31/23 05/31/23 05/31/23 05:46 06:06 06:36 Temperature Heart Rate 122 H 109 H 91 Respiratory 16 20 18 Rate Blood Pressure 143/68 H 128/57 L 119/69 O2 Saturation 99 99 100 If not protocol 4 4 4 : Oxygen Flow, liters/minute 05/31/23 05/31/23 05/31/23 07:06 09:00 11:00 Temperature 37.0 C Heart Rate 113 H 79 Respiratory 25 H 18 Rate Blood Pressure 149/128 H 125/65 134/74 H O2 Saturation 94 99 99 If not protocol : Oxygen Flow, liters/minute 05/31/23 15:42 Temperature Heart Rate 91 Respiratory 14 Rate Blood Pressure 105/62 O2 Saturation 100 If not protocol : Oxygen Flow, liters/minute Oxygen O2 Source Room air - Labs Labs: Laboratory Tests 05/31/23 05/31/23 05/31/23 03:37 03:37 03:37 WBC 8.4 RBC 4.47 L Hgb 12.4 L Hct 37.5 L MCV 83.9 MCH 27.7 MCHC 33.1 RDW 14.1 Plt Count 290 MPV 9.1 Neut # (Auto) 5.2 Lymph # (Auto) 2.3 [place] # (Auto) 0.7 Eos # (Auto) 0.1 Baso # (Auto) 0.1 Absolute Nucleated RBC 0.00 Nucleated RBC % 0.0 Sodium 143 Potassium 3.9 Chloride 107 Carbon Dioxide 31 Anion Gap 5.0 L BUN 15 Creatinine 0.7 Estimated GFR (MDRD) 130 Glucose 104 Calcium 9.9 Total Bilirubin 0.3 AST 29 ALT 21 Alkaline Phosphatase 80 Total Protein 7.4 Albumin 4.7 Globulin 2.7 Albumin/Globulin Ratio 1.7 Lipase 22 Urine Color YELLOW Urine Clarity CLEAR Urine pH 6.0 Ur Specific [place] <=1.005 Urine Protein NEGATIVE Urine Glucose (UA) NEGATIVE Urine Ketones NEGATIVE Urine Occult Blood MODERATE H Urine Nitrite NEGATIVE Urine Bilirubin NEGATIVE Urine Urobilinogen 0.2 (NORMAL) Ur Leukocyte Esterase NEGATIVE Urine RBC 6-10 H Urine WBC 0-3 Ur Squamous Epith Cells FEW Squamous Urine Bacteria Rare Ur Microscopic Review INDICATED Urine Culture Comments NOT INDICATED Salicylates < 1.5 Urine Opiates Screen NEGATIVE Ur Oxycodone Screen NEGATIVE Urine Methadone Screen NEGATIVE Ur Propoxyphene Screen NEGATIVE Acetaminophen 0.2 Ur Barbiturates Screen NEGATIVE Ur Tricyclics Screen NEGATIVE Ur Phencyclidine Scrn NEGATIVE Ur Amphetamine Screen POSITIVE H U Methamphetamines Scrn POSITIVE H U Benzodiazepines Scrn NEGATIVE Urine Cocaine Screen NEGATIVE U Cannabinoids Screen POSITIVE H Ethyl Alcohol 242.7 PD Medical Decision Making - ED course Complexity details: reviewed results, re-evaluated patient, considered differential, d/w patient ED course: Patient required physical restraint shortly after arrival due to yelling, writhing, belligerent and then becoming violent with staff. He is not verbally communicating in any way that allows for assessment of his level of orientation or ability to understand the situation. He repeatedly yells out unintelligible words or just yelling sounds. When asked why he is yelling he offers no intelligible or appropriate responses. Unexpectedly, he briefly calmed with the application of physical restraints and thus chemical restraint order was cancelled. ED RN places saenz catheter (suprapubic distention and TTP, usually has indwelling saenz catheter but arrives without one in place) and brisk risk return of large amount of cleae, yellow urine. Unfortunately, unprovoked, he suddenly again began yelling out and thrashing, pulling against restraints. He again will not tell me why he is doing this, instead yelling sounds and telling me fk you!. He is given 10 mg im zyprexa with minimal improvement. He then managed to get the saenz catheter (clear) tubing into his mouth (despite being in restraints) and was aggressively chewing in the tubing while also turning his head which resulted in pulling of the device sufficient enough to cause concern he might be able to dislodge the catheter with balloon still inflated. I grabbed both sides of the tubing on either side of his mouth and held it so as to rel ease the pulling on his penis. I repeatedly instructed him to release his bite and he refused, saying fk you through clenched teeth, and at one point threatening to bite me. ED RN offered patient food (pudding), pointing out that he would only be able to eat if he stops biting on the tubing and he refuses. ED RN took over holding the tubing so I could enter order for more chemical restraint, and he is given ketamine (weight-based dose). ED RN was able to eventually get patient to release the saenz tubing, but he continued to yell unintelligibly, and managed to turn himself face-down on the stretcher while still in four point locked restraints. ketamime had intended effect, and he stopped yelling for approximately one hour , then gradually returned to yelling and thrashing behaviors. At that point I had turned over care of this patient to De. Foster at end of my shift. Note that patients UDS was positive for methamphetamines and marijuana, and blood ethanol level is 0.242. Departure - Departure Disposition: 01 Home, Self Care Clinical Impression: AMS (altered mental status), Substance use disorder Condition: Stable Instructions: ED Drug Abuse General Comments: Stay well-hydrated. Continue usual medications. Avoid recreational medications of course such as math and cannabis. Follow-up with your primary care as needed. Forms: PCP List Discharge Date/Time: 05/31/23 16:03
[2023-05-31] MEDS ORDERED: OLANZapine 10 MG VIAL IM STA ×3 (03:00→07:53)
--- NOTE | 2023-05-31 03:22 | ED Physician Documentation ---
Restraint [id number] - Immediate Situation Face to Face Evaluation Date: 05/31/23 Face to Face Evaluation Time: 03:20 Restraint Classification: Violent, physical Restraint Type: Locked extremity - Patient's Reaction & Behaviors Safety: Physically unsafe, Non-compliant Harm: Potential harm to self, Potential harm to others Physical: Aggressive behavior, Fighting restraints - Behavioral Condition Attitude: Indifferent Behavior: Agitated Orientation: Non-responsive (does not answer my questions including orientation questions) Mood: Labile - Evaluation System status changes from initial ED note: none Note that he is not answering my questions and thus ROS cannot be assessed at this time Pertinent History/Illicit Drugs/Medications/Results: see H+P - Plan Need to Continue or Terminate Violent or Chemical Restraint: Needs to exhibit behaviors and engage in conversation indicative of orientation x 3 and reflective of ability to understand and thus accept or refuse treatment
[2023-05-31 03:43] LABS: MUDS CUTOFF CONCENTRATIONS CUTOFF CONC BELOW:
[2023-05-31 03:44] LABS: BASOPHILS # (AUTO) 0.1 10^3/uL (0.0-0.1); BASOPHILS % (AUTO) 1.3 %; BILIRUBIN,URINE NEGATIVE (NEGATIVE); EOSINOPHILS # (AUTO) 0.1 10^3/uL (0.0-0.7); EOSINOPHILS % (AUTO) 1.3 %; GLUCOSE, URINE (UA) NEGATIVE (NEGATIVE); HCT - HEMATOCRIT 37.5 % (42.0-52.0); HGB - HEMOGLOBIN 12.4 g/dL (14.0-18.0); KETONES,URINE (UA) NEGATIVE (NEGATIVE); LEUKOCYTE ESTERASE, URINE NEGATIVE (NEGATIVE); LYMPHOCYTES # (AUTO) 2.3 10^3/uL (1.5-3.5); LYMPHOCYTES % (AUTO) 27.4 %; MEAN CORPUSCULAR HEMOGLOBIN 27.7 pg (27.0-31.0); MEAN CORPUSCULAR HGB CONC 33.1 g/dL (32.0-36.0); MEAN CORPUSCULAR VOLUME 83.9 fL (80.0-94.0); MEAN PLATELET VOLUME 9.1 fL (7.4-11.4); MONOCYTES # (AUTO) 0.7 10^3/uL (0.0-1.0); MONOCYTES % (AUTO) 8.1 %; NEUTROPHILS # (AUTO) 5.2 10^3/uL (1.5-6.6); NEUTROPHILS % (AUTO) 61.8 %; NITRITE,URINE NEGATIVE (NEGATIVE); OCCULT BLOOD,URINE MODERATE (NEGATIVE); PLT - PLATELET COUNT 290 10^3/uL (130-450); PROTEIN,URINE NEGATIVE (NEGATIVE); RED BLOOD COUNT 4.47 10^6/uL (4.70-6.10); RED CELL DISTRIBUTION WIDTH 14.1 % (12.0-15.0); UROBILINOGEN,URINE 0.2 (NORMAL) E.U./dL (NORMAL); WHITE BLOOD COUNT 8.4 x10^3/uL (4.8-10.8)
[2023-05-31 03:48] LABS: CLARITY,URINE CLEAR (CLEAR)
[2023-05-31 03:55] LABS: AMPHETAMINE SCREEN,URINE POSITIVE (NEGATIVE); BACTERIA,URINE Rare /HPF (None Seen); COCAINE SCREEN URINE NEGATIVE (NEGATIVE); METHAMPHETAMINES SCREEN, URINE POSITIVE (NEGATIVE); OPIATE SCREEN, URINE NEGATIVE (NEGATIVE); SQUAMOUS EPITHELIAL CELL,UR FEW Squamous (<= Few); THC CANNABINOID SCREEN, URINE POSITIVE (NEGATIVE); WBC,URINE 0-3 /HPF (0-3)
[2023-05-31 03:56] LABS: BARBITURATE SCREEN,UR NEGATIVE (NEGATIVE); BENZODIAZEPINES SCREEN, URINE NEGATIVE (NEGATIVE); METHADONE SCREEN, URINE NEGATIVE (NEGATIVE); OXYCODONE SCREEN, URINE NEGATIVE (NEGATIVE); PROPOXYPHENE SCREEN, URINE NEGATIVE (NEGATIVE); TRICYCLIC ANTIDEPRESSANT,URINE NEGATIVE (NEGATIVE)
[2023-05-31 03:59] LABS: ACETAMINOPHEN 0.2 ug/mL; ALBUMIN 4.7 g/dL (3.2-5.5); ALBUMIN/GLOBULIN RATIO 1.7 (1.0-2.2); ALKALINE PHOSPHATASE 80 IU/L (42-121); ALT ALANINE AMINOTRANSFERASE 21 IU/L (10-60); AST ASPARTATE AMINOTRANSFERASE 29 IU/L (10-42); BILIRUBIN,TOTAL 0.3 mg/dL (0.2-1.0); BUN - BLOOD UREA NITROGEN 15 mg/dL (6-20); CALCIUM 9.9 mg/dL (8.5-10.3); CARBON DIOXIDE - CO2 31 mmol/L (21-32); CHLORIDE 107 mmol/L (101-111); CREATININE 0.7 mg/dL (0.6-1.3); ETOH - ETHANOL 242.7 mg/dL; GFR - MDRD 130 (>89); GLUCOSE 104 mg/dL (74-104); LIPASE 22 U/L (11-82); POTASSIUM 3.9 mmol/L (3.5-4.5); SODIUM 143 mmol/L (135-145); TOTAL PROTEIN 7.4 g/dL (6.4-8.9)
[2023-05-31 04:01] LABS: SALICYLATE < 1.5 mg/dL
--- NOTE | 2023-05-31 04:15 | ED Physician Documentation ---
Restraint [id number] - Immediate Situation Face to Face Evaluation Date: 05/31/23 Face to Face Evaluation Time: 04:13 Restraint Classification: Violent, chemical w/ physical hold Restraint Type: Locked extremity - Patient's Reaction & Behaviors Safety: Physically unsafe, Non-compliant, Unable to Follow Commands Verbal: Demanding, Screaming/Yelling, Swearing Harm: Potential harm to self, Potential harm to others Physical: Aggressive behavior, Fighting restraints, Biting Other: Disruption of therapy - Behavioral Condition Attitude: Indifferent Behavior: Uncooperative, Belligerent, Agitated Orientation: Non-responsive (does not answer my questions including orientation questions) Mood: Labile, Angry - Evaluation System status changes from initial ED note: none (note that he is not answering my questions and thus unable to assess ROS) Pertinent History/Illicit Drugs/Medications/Results: see H+P - Plan Need to Continue or Terminate Violent or Chemical Restraint: exhibit behaviors and engage in conversation indicative of being oriented x 3 and capable of calm and cooperative behavior
[2023-05-31] MEDS ORDERED: KETAMINE 500 MG/10 ML VIAL IM STA (04:57)
--- NOTE | 2023-05-31 05:43 | ED Physician Documentation ---
Restraint [id number] - Immediate Situation Face to Face Evaluation Date: 05/31/23 Face to Face Evaluation Time: 05:41 Restraint Classification: Violent, chemical w/ physical hold Restraint Type: Locked extremity - Patient's Reaction & Behaviors Safety: Physically unsafe, Non-compliant, Unable to Follow Commands Physical: Aggressive behavior, Fighting restraints Other: Attempting removal of medically necessary device(s) - Behavioral Condition Attitude: Indifferent Behavior: Agitated Orientation: Non-responsive (does not answer my questions) Mood: Angry - Evaluation System status changes from initial ED note: none (not providing ROS information) Pertinent History/Illicit Drugs/Medications/Results: see H+P - Plan Need to Continue or Terminate Violent or Chemical Restraint: exhibits behavior and engages in conversation indicative of orientation x 3, calm and cooperative
--- NOTE | 2023-05-31 08:17 | ED Physician Documentation ---
Restraint [id number] - Immediate Situation Face to Face Evaluation Date: 05/31/23 Face to Face Evaluation Time: 08:14 Restraint Classification: Violent, physical Restraint Type: Locked extremity - Patient's Reaction & Behaviors Safety: Physically unsafe, Non-compliant, Unable to Follow Commands Verbal: Screaming/Yelling Harm: Potential harm to self, Potential harm to others Physical: Aggressive behavior, Fighting restraints Other: Disruption of therapy - Behavioral Condition Attitude: Other (agitated) Behavior: Agitated Orientation: Person Mood: Anxious Behavioral Condition Comments: The patient is quite regularly screaming and yelling. He is thrashing about on the bed and pulling at the restraints. He is able to answer to his name. I asked if he is feeling bothered by his agitation and he said yes. I asked if he would like medication to help him relax. He said he would very much like some medication to help relax in his excepting willingly. Until medication can have a better effect, I do not feel he is safe to himself or others and would renew the restraints for now. - Evaluation System status changes from initial ED note: It does not sound like much change in his physical and psychological presentation. Pertinent History/Illicit Drugs/Medications/Results: see H+P - Plan Need to Continue or Terminate Violent or Chemical Restraint: Hopefully further time of metabolizing his methamphetamines as well as some effect from medication to help with the anxiety and agitation will allow for improved patient condition to allow removal of restraints.
[2023-05-31] MEDS ORDERED: diazePAM INJ 5 MG/ML SYRINGE IM STA (08:52)
[2023-05-31] MEDS ORDERED: OLANZapine ODT 5 MG TABLET TL ONE (10:21)
--- NOTE | 2023-05-31 11:24 | ED Physician Documentation ---
ED Addendum - Addendum Addendum: 05/31/23 11:21 The patient either with time alone or medication combined with time has become more lucid and conversant and oriented. He had been positive for meth and cannabis. These apparently have our wearing off and allowing him to have better mentation. No other abnormality has been identified on testing previously. At this point the patient is able to interact and cooperate with care. I asked what was bothering him as he continues to be intermittently agitated and kind of yelling out. He states the catheter was bothering him. At this point we can discontinue the [place] catheter as we could better assess when he feels he has to urinate. We can also discontinue the restraints as he is able to follow direction now. This really has seemed to evolve over the last half hour or so. Prior to that he was still agitated and thrashing with only intermittently answering questions. The patient is not expressing any suicidality. At this point I would assume we will continue watching for clearing of mentation and see at what point he would be comfortable with discharge.
[2023-05-31 15:45] VITALS: BP 105/62; O2SAT 100
--- NOTE | 2023-05-31 15:53 | ED Physician Documentation ---
ED Addendum - Addendum Addendum: 05/31/23 15:52 The patient has continued to improve on alertness and interaction and c onversation. He is mostly slept in the bed but is still easily arousable. At this point I asked if he was feeling like he would want to be going home. He said he would like to go home quite affirmatively and said he would get the bus there. At this point we can discharge the patient as he is no longer having altered mental status and would like to go home.
== END 2023-05-31 16:03 | disposition home or self-care (01) ==
LOC: EDUNIT# → ED 02:23
DX: R41.82 Altered mental status, unspecified (principal); F17.200 Nicotine dependence, unspecified, uncomplicated; Z78.1 Physical restraint status
CPT/HCPCS: 36415; 51702; 80053; 80306; 80307; 80320; 80329; 81001; 83690; 85025; 96372; 99284; 99285; A9270; 81003; 87086; 94770

== ENCOUNTER 2023-08-08 13:07 | Outpatient (CLI) | payer MEDICAID | END 2023-08-08 13:08 | disposition critical access hospital (66) | LOC: EMS 13:07 | DX: K62.89 Other specified diseases of anus and rectum (principal); R10.84 Generalized abdominal pain; R14.0 Abdominal distension (gaseous) | CPT/HCPCS: A0425; A0429 ==

== ENCOUNTER 2023-08-08 13:30 | Emergency (ER) | payer MEDICAID ==
--- NOTE | 2023-08-08 13:36 | ED Physician Documentation ---
PD HPI ABD PAIN - Stated complaint Stated Complaint: ABD PX - History obtained from History obtained from: Patient - History of Present Illness Timing - onset: Last night Timing - details: Gradual onset, Still present (The patient has had general lower abdominal pain and fullness. He states he had decreased stool movements generally but still having some stool output. Noted onset of rectal pain and fullness last evening.) Quality: Cramping, Aching, Fullness/distended (lower abd), Pain (lower abd and particularly in rectal area.) Associated symptoms: Nausea, Constipation (having small stools only. feeling fullness of rectum as needing BM.), Loss of appetite. No: Fever, Vomiting, Diarrhea, Dysuria, Hematuria Similar symptoms before: Has not had sx before Review of Systems Constitutional: denies: Fever, Chills Cardiac: denies: Chest pain / pressure Respiratory: denies: Dyspnea, Cough GI: reports: Abdominal Pain, Abdominal Swelling (lower abd) Skin: denies: Rash, Lesions PD PAST MEDICAL HISTORY - Past Medical History Cardiovascular: None Respiratory: None Neuro: Other Endocrine/Autoimmune: None GI: None : Retention HEENT: None Psych: Bipolar disorder, Post traumatic stress disorder Musculoskeletal: None Derm: None - Past Surgical History Past Surgical History: No Ortho: Spine surgery Neuro: Other - Present Medications Home Medications: Ambulatory Orders Medication Instructions Recorded Confirmed Docusate Sodium 100Mg Capsule 100 mg PO DAILY #20 cap 08/08/23 [Colace 100Mg Capsule] Lactulose 30 ml PO DAILY PRN #240 ml 08/08/23 - Allergies Allergies/Adverse Reactions: Allergies Allergy/AdvReac Type Severity Reaction Status Date / Time Penicillins Allergy Edema Verified 08/08/23 13:39 - Social History Does the pt smoke?: Yes Smoking Status: Current every day smoker Does the pt drink ETOH?: Yes Does the pt have substance abuse?: Yes - Immunizations Immunizations are current?: Yes Immunizations: TDAP >10years/unknown - POLST Patient has POLST: No POLST Status: Full Code PD ED PE NORMAL - Vitals Vital signs reviewed: Yes - General General: Alert and oriented X 3, Well developed/nourished, Other (appears very uncomfortable due to lower abd pain and rectal pain. ) - Neck Neck: Supple, no meningeal sign, No adenopathy - Cardiac Cardiac: RRR, No murmur - Respiratory Respiratory: No respiratory distress, Clear bilaterally - Abdomen Abdomen: Soft, No organomegaly, Other (fullness in suprapubic area c/w full bladder most likely. Tender LLQ as well. ). No: Normal bowel sounds (decreased) - Male Male : Deferred - Rectal Rectal: Other (no hemorrhoids. Very tender in rectal vault. There is baseball sized lump of firm stool in area, which I digitally broke up but only able to retrieve small clumps before he asked me to stop due to discomfort. It did seem loosened. ) Results - Vitals Vitals: Vital Signs - 24 hr 08/08/23 13:39 Temperature 36.8 C Heart Rate 92 Respiratory 18 Rate Blood Pressure 126/81 H O2 Saturation 98 Oxygen O2 Source Room air - Labs Labs: Laboratory Tests 08/08/23 08/08/23 08/08/23 14:26 14:26 15:16 WBC 16.1 H RBC 4.37 L Hgb 11.8 L Hct 36.9 L MCV 84.4 MCH 27.0 MCHC 32.0 RDW 14.0 Plt Count 314 MPV 9.3 Neut # (Auto) 13.2 H Lymph # (Auto) 1.3 L [place] # (Auto) 1.4 H Eos # (Auto) 0.1 Baso # (Auto) 0.1 Absolute Nucleated RBC 0.00 Nucleated RBC % 0.0 Sodium 135 Potassium 3.6 Chloride 101 Carbon Dioxide 28 Anion Gap 6.0 BUN 18 Creatinine 0.5 L Estimated GFR (MDRD) 192 Glucose 118 H Calcium 9.4 Total Bilirubin 0.4 AST 22 ALT 18 Alkaline Phosphatase 74 Total Protein 7.3 Albumin 4.3 Globulin 3.0 Albumin/Globulin Ratio 1.4 Lipase < 10 L Urine Color DARK YELLOW Urine Clarity CLEAR Urine pH 6.0 Ur Specific [place] >=1.030 H Urine Protein NEGATIVE Urine Glucose (UA) NEGATIVE Urine Ketones NEGATIVE Urine Occult Blood LARGE H Urine Nitrite NEGATIVE Urine Bilirubin NEGATIVE Urine Urobilinogen 0.2 (NORMAL) Ur Leukocyte Esterase NEGATIVE Urine RBC TNTC H Urine WBC 0-3 Ur Squamous Epith Cells FEW Squamous Urine Bacteria Rare Urine Yeast PRESENT Ur Microscopic Review INDICATED Urine Culture Comments NOT INDICATED - Rads (name of study) abd/pelvic CT Relevant Findings:: Prelim report reviewed (partial appearance of appendix that does not apper abnormal. Coious amount of stool diffusely and rectal impaction. ), EMP independent interpretation of test PD Medical Decision Making - ED course Complexity details: reviewed results (white count 16.1, Hgb 11.8. Chemistries are good with creatine 0.5 that is very good. Not singifying signifcant dehydration. CT showing copious stool and no other acute process. ), considered differential, d/w patient Drug Therapy Requiring Monitoring for Toxicity: Given IV fluids and meds of Toradol, Zofran and DIlaudid for sympotms. Lower abd pain and tender gave impetus for geting CT abd and labs. Subsequent to CT and rectal disimpaction, the pt did have a large BM of clumps of stool and had considerable improvement of the rectal pain. He had urinated about 300-400 ml per nursing prior to that. He is feeling improved and wishes discharge from ER. Declines enema. Given PO stool softerner/laxative prior to discharge. ED course: The patient did have fullness in the lower abdomen. He does have apparently full bladder but does not want a catheter. He was able to urinate approximately 3 to 400 mL so is at least having some urinary output. Presume a chronically stretched bladder. His initial CT by my view is showing considerable amount of stool in a baseball sized rectal impaction. I did do a digital exam and the attempted disimpaction. I did break up the stool ball into smaller pieces and some small stool out. I suggested to the patient we follow-up with an enema. We did also go oral with stool softener and laxatives. We are pending the radiology report for the CT at this point. However the patient states he would like to be discharged now. His urine was clear without any signs of infection. No obvious kidney stones. Large amount of stool noted on the CT. No obvious free air. We can call the patient if there is abnormalities noted other than this on the radiology report. At this point I would presume a lot of his symptoms relate to constipation and rectal impaction. Obviously there is some element from enlarged bladder which has been more of a chronic issue for him and has not wanted to catheter. Departure - Departure Disposition: 01 Home, Self Care Clinical Impression: Lower abdominal pain, Fecal impaction of rectum, Constipation, Incomplete emptying of bladder Condition: Stable Record reviewed to determine appropriate education?: Yes Instructions: ED Constipation Prescriptions: Docusate Sodium 100Mg Capsule [Colace 100Mg Capsule] 100 mg PO DAILY #20 cap Lactulose 30 ml PO DAILY PRN #240 ml PRN Reason: Constipation Comments: Your rectal pain apparently was from a large ball of stool in that area. Hopefully with that coming out now it will be more comfortable in that area. You do have a lot of stool throughout the colon and part of the small intestine. I would suggest daily laxative and stool softeners for the next week or so to help clean out. You could initially use the lactulose laxative twice daily until things are moving better. Stay well-hydrated. Your bladder does not look like it empties completely and that may be creating some distention in the lower abdomen as well. No signs of bladder infection. Your CT scan did show a lot of stool throughout. I do not have the official radiology reading at this point. We can try to contact you if there is any significant abnormality otherwise noted. Continue usual medications. Return if not improved well over the next day or 2. I sent your prescription to your preferred pharmacy. Forms: PCP List Discharge Date/Time: 08/08/23 17:40
[2023-08-08 13:46] VITALS: BP 126/81; O2SAT 98
[2023-08-08] MEDS ORDERED: ONDANSETRON 4 MG/2 ML VIAL IVP STA (14:09)
[2023-08-08] MEDS ORDERED: HYDROmorphone 1 MG/ML CARPUJECT IVP STA ×2 (14:09→17:17)
[2023-08-08] MEDS ORDERED: SODIUM CHLORIDE 0.9% 1,000 ML IV STA (14:09)
[2023-08-08] MEDS ORDERED: KETOROLAC 15 MG/ML VIAL IVP STA (14:10)
[2023-08-08 14:36] LABS: BASOPHILS # (AUTO) 0.1 10^3/uL (0.0-0.1); BASOPHILS % (AUTO) 0.6 %; EOSINOPHILS # (AUTO) 0.1 10^3/uL (0.0-0.7); EOSINOPHILS % (AUTO) 0.5 %; HCT - HEMATOCRIT 36.9 % (42.0-52.0); HGB - HEMOGLOBIN 11.8 g/dL (14.0-18.0); LYMPHOCYTES # (AUTO) 1.3 10^3/uL (1.5-3.5); LYMPHOCYTES % (AUTO) 8.2 %; MEAN CORPUSCULAR VOLUME 84.4 fL (80.0-94.0); MEAN PLATELET VOLUME 9.3 fL (7.4-11.4); MONOCYTES # (AUTO) 1.4 10^3/uL (0.0-1.0); MONOCYTES % (AUTO) 8.5 %; NEUTROPHILS # (AUTO) 13.2 10^3/uL (1.5-6.6); NEUTROPHILS % (AUTO) 81.9 %; PLT - PLATELET COUNT 314 10^3/uL (130-450); RED BLOOD COUNT 4.37 10^6/uL (4.70-6.10); WHITE BLOOD COUNT 16.1 x10^3/uL (4.8-10.8)
[2023-08-08 14:49] LABS: ALBUMIN 4.3 g/dL (3.2-5.5); ALBUMIN/GLOBULIN RATIO 1.4 (1.0-2.2); ALKALINE PHOSPHATASE 74 IU/L (42-121); ALT ALANINE AMINOTRANSFERASE 18 IU/L (10-60); AST ASPARTATE AMINOTRANSFERASE 22 IU/L (10-42); BILIRUBIN,TOTAL 0.4 mg/dL (0.2-1.0); BUN - BLOOD UREA NITROGEN 18 mg/dL (6-20); CALCIUM 9.4 mg/dL (8.5-10.3); CARBON DIOXIDE - CO2 28 mmol/L (21-32); CHLORIDE 101 mmol/L (101-111); CREATININE 0.5 mg/dL (0.6-1.3); GFR - MDRD 192 (>89); GLUCOSE 118 mg/dL (74-104); POTASSIUM 3.6 mmol/L (3.5-4.5); SODIUM 135 mmol/L (135-145); TOTAL PROTEIN 7.3 g/dL (6.4-8.9)
[2023-08-08 14:51] LABS: LIPASE < 10 U/L (11-82)
[2023-08-08 15:23] LABS: BILIRUBIN,URINE NEGATIVE (NEGATIVE); GLUCOSE, URINE (UA) NEGATIVE (NEGATIVE); KETONES,URINE (UA) NEGATIVE (NEGATIVE); LEUKOCYTE ESTERASE, URINE NEGATIVE (NEGATIVE); NITRITE,URINE NEGATIVE (NEGATIVE); OCCULT BLOOD,URINE LARGE (NEGATIVE); PROTEIN,URINE NEGATIVE (NEGATIVE); UROBILINOGEN,URINE 0.2 (NORMAL) E.U./dL (NORMAL)
[2023-08-08 15:25] LABS: CLARITY,URINE CLEAR (CLEAR)
[2023-08-08 15:30] LABS: BACTERIA,URINE Rare /HPF (None Seen); RBC,URINE TNTC /HPF (0-5); SQUAMOUS EPITHELIAL CELL,UR FEW Squamous (<= Few); WBC,URINE 0-3 /HPF (0-3); YEAST,URINE PRESENT
[2023-08-08] MEDS ORDERED: iohexoL-300 100 ML VIAL IVP ONE (16:37)
[2023-08-08] MEDS ORDERED: LACTULOSE 10 GM /15 ML UDC PO STA (17:17)
[2023-08-08] MEDS ORDERED: MINERAL OIL ENEMA 133 ML BOTTLE RC STA (17:17)
[2023-08-08] MEDS ORDERED: DOCUSATE SODIUM 100 MG CAPSULE PO STA (17:17)
--- NOTE | 2023-08-08 17:34 | CT Report ---
PROCEDURE: ABDOMEN/PELVIS W INDICATIONS: RLQ Abdominal pain, appendicitis suspected CONTRAST: 100 cc Omnipaque 300 TECHNIQUE: After the administration of IV contrast, 5 mm thick sections acquired from the diaphragms to the symp hysis. 5 mm thick coronal and sagittal reformats were acquired. For radiation dose reduction, the f ollowing was used: automated exposure control, adjustment of mA and/or kV according to patient size. There is an injector malfunction at the time of this injection, with reduction in the amount of contr ast injected, estimated to be 70 cc by the technologist. COMPARISON: 10/09/2022, 02/21/2022 FINDINGS: Image quality: There is artifact associated with the metallic hardware. Limited by poor contrast in jection bolus. The study is also limited by relative paucity of intra-abdominal fat. Lung bases and heart: A small hiatal hernia is incidentally noted. Liver: No solid mass. Gallbladder and biliary tree: Within normal limits. Spleen: No splenomegaly. Pancreas: No pancreatic ductal dilation. Adrenals: No adrenal nodule. Kidneys and ureters: No hydronephrosis. No renal cystic lesion which requires follow up. No solid mas s. Bowel and peritoneum: In this patient with this given history, scrutiny is given to a normal appendix is believed to be partially seen on series 2 image 55. No focal right lower quadrant inflammatory ch anges are seen. A moderate to prominent volume of stool seen within the colon, with rectal vault measuring 7.2 cm tra nsversely. No dilated loops of small bowel are seen. The stomach is relatively decompressed at the time of this study, limiting its evaluation. Lymph nodes: No central or retroperitoneal adenopathy. Vessels: No infrarenal aortic aneurysm. PELVIS Reproductive organs: Unremarkable. Bladder: Layering bladder stones are seen. The bladder appears distended. Pelvic lymph nodes: No pelvic adenopathy by size criteria. Bones: Thoracolumbar postoperative change is seen. There is a remote T12 compression deformity. Other: No significant ventral or inguinal hernia. IMPRESSION: A normal appendix is believed to be partially seen. No focal right lower quadrant inflammatory change s are seen. Bladder stones and a prominent bladder can be seen. There is a moderate to prominent amount of stool within the colon, including within the rectum. Const ipation is suspected. Additional findings: Small hiatal hernia Remote T12 compression deformity Thoracolumbar excision hardware Reviewed by: Toño Marin MD on 08/08/2023 4:32 PM [facility] Approved by: Toño Marin MD on 08/08/2023 4:32 PM [facility] Station ID: [id number]
== END 2023-08-08 17:40 | disposition home or self-care (01) ==
LOC: EDUNIT# → ED 13:30
DX: K56.41 Fecal impaction (principal); R33.9 Retention of urine, unspecified; R10.30 Lower abdominal pain, unspecified; F17.200 Nicotine dependence, unspecified, uncomplicated
CPT/HCPCS: 36415; 74177; 80053; 81001; 83690; 85025; 96374; 96375; 99284; A9270; J1170; Q9967; 81003; 87086

== ENCOUNTER 2023-10-21 14:44 | Outpatient (CLI) | payer MEDICAID | END 2023-10-21 14:45 | disposition EMS.NT | LOC: EMS 14:44 | DX: R39.89 Other symptoms and signs involving the genitourinary system (principal) ==

== ENCOUNTER 2023-11-19 11:32 | Outpatient (CLI) | payer MEDICAID | END 2023-11-19 11:33 | disposition short-term general hospital (02) | LOC: EMS 11:32 | DX: R31.0 Gross hematuria (principal); R35.0 Frequency of micturition; R30.9 Painful micturition, unspecified; R39.89 Other symptoms and signs involving the genitourinary system | CPT/HCPCS: A0425; A0429; A0999 ==

== ENCOUNTER 2023-11-24 18:48 | Emergency (ER) | payer MEDICAID, OTHER ==
[2023-11-24 19:01] VITALS: BP 119/75; O2SAT 99
--- NOTE | 2023-11-24 19:04 | ED Physician Documentation ---
History of Present Illness - Stated complaint Stated Complaint: FIT - Chief complaint Chief Complaint: General - History obtained from History obtained from: Police - Additonal information Additional information: The patient was sent from detention for chief complaint of "nurse could not feel pulses in his feet". The patient is a new paraplegic for about the past year, and has had some swelling in his bilateral feet. He has occasional involuntary movement in both lower extremities. He denies any new complaints. PD PAST MEDICAL HISTORY - Past Medical History Cardiovascular: None Respiratory: None Neuro: Other Endocrine/Autoimmune: None GI: None : Retention HEENT: None Psych: Bipolar disorder, Post traumatic stress disorder Musculoskeletal: None Derm: None - Past Surgical History Past Surgical History: No Ortho: Spine surgery Neuro: Other - Present Medications Home Medications: Ambulatory Orders Medication Instructions Recorded Confirmed Docusate Sodium 100Mg Capsule 100 mg PO DAILY #20 cap 08/08/23 [Colace 100Mg Capsule] Lactulose 30 ml PO DAILY PRN #240 ml 08/08/23 - Allergies Allergies/Adverse Reactions: Allergies Allergy/AdvReac Type Severity Reaction Status Date / Time Penicillins Allergy Edema Verified 11/24/23 19:01 - Social History Does the pt smoke?: Yes Smoking Status: Current every day smoker Does the pt drink ETOH?: Yes Does the pt have substance abuse?: Yes - Immunizations Immunizations are current?: Yes Immunizations: TDAP >10years/unknown - POLST Patient has POLST: No POLST Status: Full Code PD ED PE NORMAL - Vitals Vital signs reviewed: Yes - General General: No acute distress, Well developed/nourished, Other (alert, nad) - HEENT HEENT: Atraumatic, Moist mucous membranes - Neck Neck: Supple, no meningeal sign - Cardiac Cardiac: Strong equal pulses (Pt has strong, palpable, and equal DP and PT pulses in both lower extremities.) - Respiratory Respiratory: No respiratory distress - Derm Derm: Normal color, Warm and dry, Other (Both feet warm, with good color bilaterally.) - Extremities Extremities: No deformity, Other (1+ pitting edema bilaterally, symmetrical. Bounding, equal pulses bilaterally.) - Neuro Neuro: Alert and oriented X 3 - Psych Psych: Normal mood, Normal affect Results - Vitals Vitals: Vital Signs - 24 hr 11/24/23 18:52 Temperature 37 C Heart Rate 79 Respiratory 16 Rate Blood Pressure 119/75 O2 Saturation 99 Oxygen O2 Source Room air PD Medical Decision Making - ED course Complexity details: considered differential, d/w patient ED course: I d/w officer accompanying pt that the pt has bounding pulses in distal lower extremities, with warm feet and good color. No evidence of any circulatory compromise. Pt has no other acute complaints, and is clear to return to detention. Departure - Departure Disposition: 01 Home, Self Care Clinical Impression: Normal exam, Lower extremity edema Condition: Stable Comments: Your feet are swollen but you have great pulses on both feet and in both ankles. X's have been marked in the places where the pulses were palpable here in the emergency department. No Doppler ultrasound was necessary, due to the definite presence of pulses by palpation. Furthermore, your skin is pink and warm and there is no evidence of vascular compromise at this time. Please follow-up your primary doctor as needed. Forms: PCP List Discharge Date/Time: 11/24/23 19:13
== END 2023-11-24 19:13 | disposition home or self-care (01) ==
LOC: EDUNIT# → ED 18:48
DX: R60.0 Localized edema (principal); G82.20 Paraplegia, unspecified; F17.200 Nicotine dependence, unspecified, uncomplicated
CPT/HCPCS: 99281; 99283

== ENCOUNTER 2024-01-13 12:42 | Outpatient (CLI) | payer MEDICAID | END 2024-01-13 23:59 | disposition critical access hospital (66) | LOC: EMS 12:42 | DX: R22.0 Localized swelling, mass and lump, head (principal); R68.84 Jaw pain | CPT/HCPCS: A0425; A0429; A0999 ==

== ENCOUNTER 2024-01-13 13:00 | Emergency (ER) | payer MEDICAID ==
--- NOTE | 2024-01-13 13:02 | ED Physician Documentation ---
History of Present Illness - Stated complaint Stated Complaint: CHIN INFECTION - History obtained from History obtained from: Patient, EMS - Additonal information Additional information: He has a history of mental health issues, spinal cord injury, and drug abuse. For 2 days he has had swelling and pain in the area under the right chin. He says he has no history of MRSA. No fevers. PD PAST MEDICAL HISTORY - Past Medical History Cardiovascular: None Respiratory: None Neuro: Other Endocrine/Autoimmune: None GI: None : Retention HEENT: None Psych: Bipolar disorder, Post traumatic stress disorder Musculoskeletal: None Derm: None - Past Surgical History Past Surgical History: No Ortho: Spine surgery Neuro: Other - Present Medications Home Medications: Ambulatory Orders Medication Instructions Recorded Confirmed Oxycodone HCl/Acetaminophen 1 - 2 each PO Q6H PRN #7 tablet 01/13/24 [Percocet 5-325 mg Tablet] Sulfamethox/Trimeth 800/160 1 each PO BID #14 tablet 01/13/24 [Bactrim Ds 800/160] cephALEXin [Keflex] 500 mg PO Q6H #28 cap 01/13/24 - Allergies Allergies/Adverse Reactions: Allergies Allergy/AdvReac Type Severity Reaction Status Date / Time Penicillins Allergy Edema Verified 01/13/24 13:10 - Social History Does the pt smoke?: Yes Smoking Status: Current every day smoker Does the pt drink ETOH?: Yes Does the pt have substance abuse?: Yes - Immunizations Immunizations are current?: Yes Immunizations: TDAP >10years/unknown - POLST Patient has POLST: No POLST Status: Full Code PD ED PE NORMAL - Vitals Vital signs reviewed: Yes - General General: Alert and oriented X 3, Other (Well-appearing nontoxic gentleman in no distress) - HEENT HEENT: Other (Generally poor dentition. There is a 3 to 4 cm area of cellulitis with suggestion of underlying fluctuance in the right submandibular area. There is no sublingual edema or dental infection directly under that so it seems like a skin source as opposed to a dental source.) - Neuro Neuro: Alert and oriented X 3 Results - Vitals Vitals: Vital Signs - 24 hr 01/13/24 13:06 Temperature 36.1 C L Heart Rate 96 Respiratory 18 Rate Blood Pressure 123/76 O2 Saturation 100 Oxygen O2 Source Room air Procedures - Abscess I&D (location) Chin Preparation: Chlorhexadine, Lidocaine 1% Incision: Incised with scalpel, Purulent drainage, Loculations broken, Culture obtained Other: Pt tolerated well, Antibiotic prescribed PD Medical Decision Making - ED course ED course: He presents with a skin base abscess under the right chin/submental area. An I&D was done and a culture was obtained. It is too small to pack. He is homeless so advised to return to the ED in 2 days for wound check and culture review. Otherwise his egg caser is here with him and it sounds like if he did not return we could call in a relevant culture results if positive and needing intervention to the [facility]. Departure - Departure Disposition: 01 Home, Self Care Clinical Impression: Abscess of chin Condition: Good Record reviewed to determine appropriate education?: Yes Instructions: ED Abscess IandD Prescriptions: Bacitracin Zinc Oint 1 applic TOP BID #1 each cephALEXin [Keflex] 500 mg PO Q6H #28 cap Oxycodone HCl/Acetaminophen [Percocet 5-325 mg Tablet] 1 - 2 each PO Q6H PRN #7 tablet PRN Reason: pain Comments: I sent your prescription electronically to the [facility] in [place]. We are performing a wound culture, given your personal circumstances we will try to call the spine caf with results, that said it is also reasonable to have you j ust return on Thursday or Thursday for recheck. Sooner if worse.
[2024-01-13 13:13] VITALS: BP 123/76; O2SAT 100
[2024-01-13] MEDS: BUFFERED LIDOCAINE 10 ML SYRINGE SUBQ STA (13:13)
[2024-01-13] MEDS: cephALEXin 250 MG CAPSULE PO STA (13:20)
[2024-01-13] MEDS: SULFAMETH/TRIMETH DS 800/160 MG TABLET PO STA (13:21)
[2024-01-13] MEDS: oxyCODONE 5 MG TABLET PO STA (13:21)
--- NOTE | 2024-01-15 09:03 | ED Physician Documentation ---
ED Addendum - Addendum Addendum: 01/15/24 09:03 The patient's chin wound culture came back showing MRSA positive sensitive to trimethoprim sulfa which is what he was prescribed. No change in treatment needed.
== END 2024-01-13 13:27 | disposition home or self-care (01) ==
LOC: EDUNIT# → ED 13:00
DX: L02.01 Cutaneous abscess of face (principal); B95.62 Methicillin resistant Staphylococcus aureus infection as the cause of diseases classified elsewhere; F17.200 Nicotine dependence, unspecified, uncomplicated
CPT/HCPCS: 10060; 87070; 87205; 99283; A9270; 87181

== ENCOUNTER 2024-02-23 12:31 | Outpatient (CLI) | payer MEDICAID | END 2024-02-23 23:59 | disposition critical access hospital (66) | LOC: EMS 12:31 | PROVIDERS: ATTEND Emergency Medicine | DX: T40.411A Poisoning by fentanyl or fentanyl analogs, accidental (unintentional), initial encounter (principal) | CPT/HCPCS: A0425; A0429; A0999 ==

== ENCOUNTER 2024-03-28 08:03 | Emergency (ER) | payer MEDICAID ==
--- NOTE | 2024-03-28 08:40 | ED Physician Documentation ---
PD HPI UPPER EXT INJURY - Stated complaint Stated Complaint: LT HAND INJ, FACE INJ - Chief complaint Chief Complaint: Ext Problem - History obtained from History obtained from: Patient - History of Present Illness Location: Left, Finger Type of injury: Blunt / blow (finger caught in wheelchair mechaism when being folded. Causing laceration that had been red with swelling. Rx some antibiotics and was improed but not resolved. FInished abx and was doing okay but now redness and swelling with some discharge again.) Timing - onset: How many weeks ago (about 4 weeks ago) Timing - duration: Weeks (4) Timing - details: Abrupt onset, Still present, Waxing and waning (was improved on abx but now red/swelling back since off the antibiotics.) Worsened by: Moving, Palpating Associated symptoms: Swelling, Discolored. No: Weakness Review of Systems Constitutional: denies: Fever, Chills Nose: denies: Rhinorrhea / runny nose, Congestion Throat: denies: Sore throat Respiratory: denies: Cough PD PAST MEDICAL HISTORY - Past Medical History Past Medical History: Yes Cardiovascular: None Respiratory: None Neuro: Other Endocrine/Autoimmune: None GI: None : Retention HEENT: None Psych: Bipolar disorder, Post traumatic stress disorder Musculoskeletal: None Derm: None - Past Surgical History Past Surgical History: Yes Ortho: Spine surgery Neuro: Other - Present Medications Home Medications: Ambulatory Orders Medication Instructions Recorded Confirmed Doxycycline Hyclate 100 mg PO BID 7 Days #14 cap 03/28/24 Meloxicam [Mobic] 7.5 mg PO BID 10 Days #20 tablet 03/28/24 Mupirocin 2% Oint [Bactroban 2% 1 applic TOP TID #15 gm 03/28/24 Oint] Permethrin [Lice Killing] 30 ml TP Q5D #59 ml 03/28/24 - Allergies Allergies/Adverse Reactions: Allergies Allergy/AdvReac Type Severity Reaction Status Date / Time Penicillins Allergy Edema Verified 03/28/24 08:09 - Social History Does the pt smoke?: Yes Smoking Status: Current every day smoker Does the pt drink ETOH?: Yes Does the pt have substance abuse?: Yes Substance Use and Type: Marijuana, Meth, Prescription Pills - Immunizations Immunizations are current?: Yes Immunizations: TDAP >10years/unknown - POLST Patient has POLST: No POLST Status: Full Code PD ED PE NORMAL - Vitals Vital signs reviewed: Yes - HEENT HEENT: Atraumatic - Neck Neck: Supple, no meningeal sign, No bony TTP, No adenopathy - Cardiac Cardiac: RRR, No murmur - Respiratory Respiratory: Clear bilaterally - Abdomen Abdomen: Soft, Non tender - Derm Derm: Normal color, Warm and dry - Extremities Extremities: Other (left thumb with redness and tenderness, without flutuance Seemed initially there might be fluid but he had drained some at home and now just infection in the tissue. ) - Neuro Neuro: No motor deficit, No sensory deficit Results - Vitals Vitals: Oxygen O2 Source Room air PD Medical Decision Making - ED course Complexity details: reviewed results (arthritic changes. No noted erosion. air/gas. ), considered differential (bedside U/S with edema and swelling of soft tissue (used glove with water as fluid window as otherwise area was too close to probe. ), d/w patient Departure - Departure Disposition: 01 Home, Self Care Clinical Impression: Open wound of finger, infected, Impetigo due to Staphylococcus aureus, Infected scalp abrasion, Lice infested hair Condition: Stable Record reviewed to determine appropriate education?: Yes Prescriptions: Mupirocin 2% Oint [Bactroban 2% Oint] 1 applic TOP TID #15 gm Doxycycline Hyclate 100 mg PO BID 7 Days #14 cap Permethrin [Lice Killing] 30 ml TP Q5D #59 ml Meloxicam [Mobic] 7.5 mg PO BID 10 Days #20 tablet Comments: For the hand and facial infections, cleanse with soap and water and you can use some it septic wash and a head to toe with showering if you are able. This is called chlorhexidine. Apply mupirocin antibiotic ointment to the finger and face wounds. Will go with an oral antibiotic doxycycline twice daily as well. Your swelling under the chin looks to be a swollen and gland and not an abscess by bedside ultrasound. This should go down with the antibiotics as well. I think you have a scalp/hair infestation as well so use the permethrin shampoo and the hair and repeat that in 4 to 5 days. I sent your prescriptions to your preferred pharmacy. I also added an anti- inflammatory to help with some of the discomfort and pains. Recheck if not improving well over the next few days. Forms: PCP List Discharge Date/Time: 03/28/24 11:14
[2024-03-28] MEDS: DOXYCYCLINE 100 MG TABLET PO STA (08:58)
[2024-03-28] MEDS: MUPIROCIN 2% OINT 1 GM TOP STA (08:58)
[2024-03-28] MEDS: IBUPROFEN 600 MG TABLET PO STA (08:58)
[2024-03-28] MEDS: ACETAMINOPHEN 500 MG TABLET PO STA (08:58)
[2024-03-28 11:15] VITALS: BP 124/82; O2SAT 99
== END 2024-03-28 11:14 | disposition home or self-care (01) ==
LOC: ED 08:03
DX: S61.012A Laceration without foreign body of left thumb without damage to nail, initial encounter (principal); L08.9 Local infection of the skin and subcutaneous tissue, unspecified; S00.01XA Abrasion of scalp, initial encounter; W23.0XXA Caught, crushed, jammed, or pinched between moving objects, initial encounter; L01.00 Impetigo, unspecified; B95.61 Methicillin susceptible Staphylococcus aureus infection as the cause of diseases classified elsewhere; B85.0 Pediculosis due to Pediculus humanus capitis; R22.0 Localized swelling, mass and lump, head; F17.200 Nicotine dependence, unspecified, uncomplicated
CPT/HCPCS: 99283; A9270

== ENCOUNTER 2024-04-17 09:32 | Outpatient (CLI) | payer MEDICAID | END 2024-04-17 23:59 | disposition critical access hospital (66) | LOC: EMS 09:32 | DX: L03.115 Cellulitis of right lower limb (principal); Z99.3 Dependence on wheelchair | CPT/HCPCS: A0425; A0429; A0999 ==

== ENCOUNTER 2024-04-17 09:49 | Emergency (ER) | payer MEDICAID ==
--- NOTE | 2024-04-17 10:07 | ED Physician Documentation ---
PD HPI LOWER EXT INJURY - Stated complaint Stated Complaint: R ANKLE PX - Chief complaint Chief Complaint: Wound - History obtained from History obtained from: Patient - History of Present Illness PD HPI LOW EXT INJURY LOCATION: Right, Lower leg Type of injury: Other (had mild abrasion anterior lower leg that developed infection on surface, with purulent drainage. No ulceration.). No: Fall, Laceration Timing - onset: How many days ago (2-3) Timing - duration: Days Timing - details: Gradual onset, Still present Worsened by: Palpating Associated symptoms: Swelling, Discolored (redness around it.). No: Weakness, Numbness Similar symptoms before: Diagnosis (has had staph infections.) PD PAST MEDICAL HISTORY - Past Medical History Past Medical History: Yes Cardiovascular: None Respiratory: None Neuro: Other Endocrine/Autoimmune: None GI: None : Retention HEENT: None Psych: Bipolar disorder, Post traumatic stress disorder Musculoskeletal: None Derm: None - Past Surgical History Past Surgical History: Yes Ortho: Spine surgery Neuro: Other - Present Medications Home Medications: Ambulatory Orders Medication Instructions Recorded Confirmed Doxycycline Hyclate 100 mg PO BID 7 Days #14 cap 03/28/24 Meloxicam [Mobic] 7.5 mg PO BID 10 Days #20 tablet 03/28/24 Mupirocin 2% Oint [Bactroban 2% 1 applic TOP TID #15 gm 03/28/24 Oint] Permethrin [Lice Killing] 30 ml TP Q5D #59 ml 03/28/24 Chlorhexidine Gluconate [Hibiclens] 15 ml TP DAILY #236 ml 04/17/24 Mupirocin 2% Oint [Bactroban 2% 1 applic TOP TID #15 gm 04/17/24 Oint] Sulfamethox/Trimeth 800/160 1 each PO BID #14 tablet 04/17/24 [Bactrim Ds 800/160] - Allergies Allergies/Adverse Reactions: Allergies Allergy/AdvReac Type Severity Reaction Status Date / Time Penicillins Allergy Edema Verified 04/17/24 10:16 - Social History Does the pt smoke?: Yes Smoking Status: Current every day smoker Does the pt drink ETOH?: Yes Does the pt have substance abuse?: Yes - Immunizations Immunizations are current?: Yes Immunizations: TDAP >10years/unknown - POLST Patient has POLST: No POLST Status: Full Code PD ED PE NORMAL - Vitals Vital signs reviewed: Yes - General General: Alert and oriented X 3, No acute distress, Well developed/nourished - Derm Derm: Normal color, Warm and dry, Other (has area of superficial abrasion with surrounding redness and swelling with yellowish eudate on the wound area it self. Face with multiple lesions superficial c/w small staph infections. Arms with similar mild. ) Results - Vitals Vitals: Vital Signs - 24 hr 04/17/24 09:56 Temperature 36.1 C L Heart Rate 78 Respiratory 16 Rate Blood Pressure 124/89 H O2 Saturation 100 Oxygen O2 Source Room air - Labs Labs: Microbiology 04/17/24 10:15 Wound Culture - Preliminary Leg - Right PD Medical Decision Making - ED course Complexity details: considered differential (skin wound infection anterior plasencia. Likely staph for now. Culture obtained but will treat as staph with topical mupiricin and general hibiclens. ) ED course: The patient left before disposition. I had told him our plan of prescribing antibiotics topical and oral as well as a whole-body antiseptic. I can send those to his pharmacy. He had been anxious about needing to leave. Not sure if he had a phone but we can try calling him and telling him to pecan picker his prescriptions. Departure - Departure Disposition: Left Prior to Disposition Clinical Impression: Skin infection Condition: Stable Record reviewed to determine appropriate education?: Yes Instructions: ED Staph Infec Abx Tx Only Prescriptions: Sulfamethox/Trimeth 800/160 [Bactrim Ds 800/160] 1 each PO BID #14 tablet Mupirocin 2% Oint [Bactroban 2% Oint] 1 applic TOP TID #15 gm Chlorhexidine Gluconate [Hibiclens] 15 ml TP DAILY #236 ml Comments: Take the Bactrim antibiotic twice daily for the next week and apply mupirocin antibiotic ointment locally to the area. Keep it covered and cleansed. Use the Hibiclens body wash if not in your shower, if you are not able, can use it just with a wet facecloth with some of the antiseptic on it and just rinse face and head to toe and around the wound to keep new infections from forming because of satelliting of germs. We did do a culture of the wound. That will result in a couple of days and will call if you need to have your antibiotic changed based on it. I sent your prescriptions to [facility] pharmacy. Forms: PCP List Discharge Date/Time: 04/17/24 10:23
[2024-04-17 10:09] VITALS: BP 124/89; O2SAT 100
--- NOTE | 2024-04-19 19:35 | ED Physician Documentation ---
ED Addendum - Addendum Addendum: 04/19/24 19:35 Culture reviewed. Both MRSA and group A strep. The MRSA should be treated by the Bactrim but the group A strep would not be. I sent a prescription for clindamycin 300 mg p.o. 4 times daily #28 2 [facility] in [place] and asked the nurse to call the patient.
== END 2024-04-17 10:23 | disposition home or self-care (01) ==
LOC: EDUNIT# → ED 09:49
DX: S90.511A Abrasion, right ankle, initial encounter (principal); L08.9 Local infection of the skin and subcutaneous tissue, unspecified; B95.62 Methicillin resistant Staphylococcus aureus infection as the cause of diseases classified elsewhere; X58.XXXA Exposure to other specified factors, initial encounter; F17.200 Nicotine dependence, unspecified, uncomplicated
CPT/HCPCS: 87070; 87181; 87205; 99283